=== PATIENT | male | born 1965 | race Caucasian/White ===

== ENCOUNTER 2016-12-06 11:02 | Emergency (ER) | payer MEDICARE, MEDICAID ==
[~2016-12-06] VITALS: Ht 182.9 cm; Wt 94.3 kg
[~2016-12-06 11:02] MED LIST: ALBU83IN INH; ALEV220T26 PO; FISH500C PO; LEVO75TA34 PO; LOVOXYL; PROT1TAB2 PO; SIMV40TA2 PO; SYMB16INH INH; SYNT75TA PO; VICO5TAB16 PO; ZOCO40TA PO; [UNRECOGNIZED DRUG - OTHER] PO
[2016-12-06] MEDS ORDERED: RAMI25CA PO (11:15)
[2016-12-06] MEDS ORDERED: BRIL90TA (11:15)
[2016-12-06] MEDS ORDERED: ROSU20TA (11:15)
[2016-12-06] MEDS ORDERED: ALBU17IN INH (11:15)
[2016-12-06] MEDS ORDERED: ASPI81TA85 PO (11:15)
[2016-12-06] MEDS ORDERED: INVO100T (11:15)
[2016-12-06] MEDS ORDERED: METO-346 (11:15)
[2016-12-06] MEDS ORDERED: LEVO112T2 PO (11:15)
[2016-12-06] MEDS ORDERED: DULO1CAP2 (11:15)
[2016-12-06] MEDS ORDERED: STIO1AER INH (11:15)
[2016-12-06] MEDS ORDERED: METF500T (11:15)
[2016-12-06 12:34] VITALS: BP 131/78
--- NOTE | 2016-12-06 12:40 | REP ---
Left shoulder three views : There is no fracture or dislocation. Mineralization and joint spaces are normal. There are no calcifications or foreign bodies. Impression: Negative left shoulder . Signed by Aiden Lorenzo MD 12/06/2016 12:31 P
[2016-12-06] MEDS ORDERED: ASPIRIN 81 MG CHEW TABLET PO ONE (12:45)
[2016-12-06] MEDS ORDERED: PERCOCET 5MG/325MG TAB PO ONE (13:30)
[2016-12-06] MEDS ORDERED: PERC5TAB6 PO (13:33)
--- NOTE | 2016-12-07 20:27 | ECGEPIP ---
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
== END 2016-12-06 13:48 | disposition home or self-care (01) ==
LOC: M ED 12:30
DX: M25.512 Pain in left shoulder (principal); I25.2 Old myocardial infarction; I25.10 Atherosclerotic heart disease of native coronary artery without angina pectoris; I10 Essential (primary) hypertension; E78.00 Pure hypercholesterolemia, unspecified; F17.210 Nicotine dependence, cigarettes, uncomplicated

== ENCOUNTER → 2017-02-08 | Outpatient (REF) | payer MEDICARE, MEDICAID ==
[~2017-02-08] MED LIST changes: +ALBU17IN INH; +ASPI81TA85 PO; +BRIL90TA; +DULO1CAP2; +INVO100T; +LEVO112T2 PO; +METF500T; +METO-346; +PERC5TAB6 PO; +RAMI25CA PO; +ROSU20TA; +STIO1AER INH
[2017-02-08 11:50] LABS: BASO % 0.8 % (0.0-1.0); EOS # 0.2 K/mm3 (0.0-0.50); LARGE UNSTAINED CELL # 0.1 K/mm3 (0.0-0.4); LARGE UNSTAINED CELL % 2.1 % (0.0-4.0); LYMPH # 1.3 K/mm3 (1.5-4.5); LYMPH % 21.2 % (24.0-44.0); MEAN CORPUSCULAR HEMOGLOBIN 30.4 pg (27.0-33.0); MEAN CORPUSCULAR HGB CONC 34.2 g/dl (32.0-36.5); MEAN CORPUSCULAR VOLUME 88.9 fl (80.0-96.0); MONO # 0.4 K/mm3 (0.0-0.8); MONO % 6.3 % (0.0-5.0); NEUTROPHILS # 4.1 K/mm3 (1.8-7.7); NEUTROPHILS % 65.5 % (36.0-66.0); PLATELET COUNT, AUTOMATED 257 k/mm3 (150-450); RED CELL DISTRIBUTION WIDTH 15.1 % (11.5-14.5); WHITE BLOOD COUNT 6.3 K/mm3 (4.0-10.0)
[2017-02-08 15:24] LABS: ALBUMIN 4.1 GM/DL (3.2-5.2); ALBUMIN/GLOBULIN RATIO 1.21 (1.00-1.93); ALKALINE PHOSPHATASE 81 U/L (45-117); ALT/SGPT 39 U/L (12-78); ANION GAP 6 MEQ/L (8-16); AST/SGOT 18 U/L (15-37); BILIRUBIN,TOTAL 0.6 MG/DL (0.2-1.0); BLOOD UREA NITROGEN 13 MG/DL (7-18); CALCIUM LEVEL 8.8 MG/DL (8.5-10.1); CARBON DIOXIDE LEVEL 25 MEQ/L (21-32); CHLORIDE LEVEL 108 MEQ/L (98-107); CHOLESTEROL LEVEL 157 MG/DL (<200); FREE T4 1.13 NG/DL (0.76-1.46); GLOMERULAR FILTRATION RATE > 60.0 (>56); GLUCOSE, FASTING 122 MG/DL (70-105); POTASSIUM SERUM 3.8 MEQ/L (3.5-5.1); SODIUM LEVEL 139 MEQ/L (136-145); TOTAL PROTEIN 7.5 GM/DL (6.4-8.2); TRIGLYCERIDES LEVEL 348 MG/DL (<150)
== END ==
LOC: M SFHCPLAZ 07:46
PROVIDERS: ATTEND Nurse Practitioner Family
DX: J44.9 Chronic obstructive pulmonary disease, unspecified (principal); E11.9 Type 2 diabetes mellitus without complications; E03.9 Hypothyroidism, unspecified; I25.10 Atherosclerotic heart disease of native coronary artery without angina pectoris

== ENCOUNTER → 2017-02-10 | Outpatient (CLI) | payer MEDICARE, MEDICAID ==
--- NOTE | 2017-02-10 11:46 | REP ---
Clinical: Pain. Technique: AP and lateral views of the right and left knee. Findings: Examination is relatively normal for age. Subtle increased sclerosis to the tibial plateau with minimal medial joint space narrowing is appreciated bilaterally. No obvious fracture or dislocation. No obvious effusion. Impression: Mild and likely age-related degenerative changes. Signed by Dipak Griffiths MD 02/10/2017 11:37 A
== END ==
LOC: M WUC 11:14
PROVIDERS: ATTEND Nurse Practitioner Family
DX: M25.561 Pain in right knee (principal); M25.562 Pain in left knee; M17.0 Bilateral primary osteoarthritis of knee

== ENCOUNTER → 2017-03-22 | Outpatient (CLI) | payer MEDICARE, MEDICAID ==
[~2017-03-22] MED LIST changes: -METF500T; +METF500T13; +PERC5TAB12 PO; -PERC5TAB6 PO
[2017-03-22 12:29] LABS: ABG BASE EXCESS 0.5 (-2.0-2.0); ABG HCO3 23.3 MEQ/L (22.0-26.0); ABG PARTIAL PRESSURE CO2 32.5 mmHg (35.0-45.0); ABG PARTIAL PRESSURE O2 88.5 mmHg (75.0-100.0); ABG STANDARD HCO3 24.9 MEQ/L (22.0-26.0); ABG TOTAL CO2 24.3 MEQ/L (22.0-29.0); ABG pH (ARTERIAL) 7.473 UNITS (7.350-7.450)
== END ==
LOC: M LAB 11:36
PROVIDERS: ATTEND Internal Medicine Pulmonary Disease
DX: R05 Cough (principal)

== ENCOUNTER → 2017-03-25 | Outpatient (CLI) | payer MEDICARE, MEDICAID ==
--- NOTE | 2017-04-05 07:27 | SLEEPCENT ---
DATE OF PROCEDURE: 03/25/2017 REFERRING PROVIDER: ADALI Hernandes-Joseline. INTERPRETATION: Nocturnal polysomnography was performed for retitration of CPAP therapy in this patient with moderate obstructive sleep apnea who is no longer able to tolerated the CPAP device. He had been compliant with CPAP up until 03/2016 when he had a myocardial infarction. Recording time started at 21:18 and ended at 4:41 and that data was reviewed. There were 340 minutes of sleep identified. Sleep latency was 41 minutes. Rapid eye movement (REM) latency was 112 minutes. All stages of sleep were observed. Sleep efficiency was decreased at 76.1%. Electrocardiogram (EKG) showed normal sinus rhythm with an average heart rate of 84 beats per minute. Speeding and slowing was noted surrounding some respiratory events. Patient had been fit with a ResMed P-10 full face mask of medium size, 4 cm of water has been applied to the circuit and the lights were dimmed. CPAP initially started at 4 cm of water pressure, taken to a high of 11 cm of water pressure. He appeared to do optimal on a pressure of10 or 11. On 10 cm of water pressure, his apnea-hypopnea index (AHI) was 0.4 and his HAWK was 1.3. In reviewing the tracings, these events only occurred when he was supine, predominately in REM sleep. Periodic limb movement index was 14.1. Very minimal time was seen in supine REM sleep on a pressure of 10 and none on a pressure of 11 to ensure eradication of these difficulties. IMPRESSION: 1. Obstructive sleep apnea, moderate, possibly palliated on CPAP of 10 cm of water pressure. As noted above, the difficulty is that his events occurred supine and predominately in REM sleep and very minimal of this condition was seen on the pressure of 10. He had very minimal supine sleep all together on the pressure of 10 cm and therefore it is difficult to know if his events are truly eradicated. 2. Periodic limb movements, mild, uncertain clinical significance. RECOMMENDATIONS: Recommend continuation of CPAP on 10 cm of water pressure with ResMed P-10 full face mask of medium size. Clinical correlation will be necessary to ensure eradication of symptoms. If his symptoms are not eradicated , consideration could be given to an auto CPAP trial versus empirically increasing the CPAP device versus returning to the lab and starting at 10 but try to have him stay supine for a majority of the study. [facility]
== END ==
LOC: M SLEEP 20:00
PROVIDERS: ATTEND Internal Medicine Pulmonary Disease
DX: G47.33 Obstructive sleep apnea (adult) (pediatric) (principal)

== ENCOUNTER → 2017-05-18 | Outpatient (CLI) | payer MEDICARE, MEDICAID | LOC: M WUC 11:32 | PROVIDERS: ATTEND Physician Assistant | DX: M17.11 Unilateral primary osteoarthritis, right knee (principal) ==

== ENCOUNTER 2017-06-24 08:17 | Outpatient (RCR) | payer MEDICARE, MEDICAID | END 2017-07-15 | LOC: M PT 08:17 | PROVIDERS: ATTEND Physician Assistant | DX: Z51.89 Encounter for other specified aftercare (principal); M65.80 Other synovitis and tenosynovitis, unspecified site | CPT/HCPCS: 97110; G0283; G8978; G8979; G8980 ==

== ENCOUNTER → 2017-07-15 | Outpatient (CLI) | payer MEDICARE, MEDICAID ==
[2017-07-15 13:26] LABS: BLOOD UREA NITROGEN 13 MG/DL (7-18); GLOMERULAR FILTRATION RATE > 60.0 (>56)
== END ==
LOC: M LAB 12:10
PROVIDERS: ATTEND Physical Medicine & Rehabilitation
DX: M47.27 Other spondylosis with radiculopathy, lumbosacral region (principal)

== ENCOUNTER → 2017-08-23 | Outpatient (CLI) | payer MEDICARE, MEDICAID ==
[2017-08-23 15:06] LABS: BASO % 0.5 % (0.0-1.0); EOS # 0.3 10^3/uL (0.0-0.50); EOS % 5.8 % (0.0-3.0); HEMOGLOBIN 12.4 g/dl (14.0-18.0); IMMATURE GRANULOCYTE % 0.2 % (0-0); LYMPH # 1.5 10^3/uL (1.5-4.5); LYMPH % 34.3 % (24.0-44.0); MEAN CORPUSCULAR HEMOGLOBIN 29.7 pg (27.0-33.0); MEAN CORPUSCULAR HGB CONC 34.4 g/dl (32.0-36.5); MEAN CORPUSCULAR VOLUME 86.3 fl (80.0-96.0); MONO # 0.4 10^3/uL (0.0-0.8); MONO % 8.6 % (0.0-5.0); NEUTROPHILS # 2.2 10^3/uL (1.8-7.7); NEUTROPHILS % 50.6 % (36.0-66.0); PLATELET COUNT, AUTOMATED 203 10^3/uL (150-450); RED BLOOD COUNT 4.17 10^6/uL (4.30-6.10); RED CELL DISTRIBUTION WIDTH 14.3 % (11.5-14.5); WHITE BLOOD COUNT 4.3 10^3/uL (4.0-10.0)
[2017-08-23 15:07] LABS: ALBUMIN 4.2 GM/DL (3.2-5.2); ANION GAP 5 MEQ/L (8-16); BLOOD UREA NITROGEN 11 MG/DL (7-18); CALCIUM LEVEL 8.6 MG/DL (8.5-10.1); CARBON DIOXIDE LEVEL 29 MEQ/L (21-32); CHLORIDE LEVEL 106 MEQ/L (98-107); CREATININE FOR GFR 0.75 MG/DL (0.70-1.30); GLOMERULAR FILTRATION RATE > 60.0 (>56); GLUCOSE, FASTING 124 MG/DL (70-105); PHOSPHORUS LEVEL 3.5 MG/DL (2.5-4.9); POTASSIUM SERUM 3.8 MEQ/L (3.5-5.1); SODIUM LEVEL 140 MEQ/L (136-145)
== END ==
LOC: M LAB 13:44
DX: I25.118 Atherosclerotic heart disease of native coronary artery with other forms of angina pectoris (principal)
CPT/HCPCS: 80069

== ENCOUNTER → 2017-09-14 | Outpatient (REF) | payer MEDICARE, MEDICAID ==
[2017-09-14 14:20] LABS: APPEARANCE, URINE CLEAR (CLEAR); BACTERIA, URINE AUTO NEGATIVE (NEGATIVE); BILIRUBIN, URINE AUTO NEGATIVE (NEGATIVE); BLOOD, URINE BLOOD NEGATIVE (NEGATIVE); COLOR, URINE YELLOW (YELLOW); GLUCOSE, URINE (UA) AUTO NEGATIVE (NEGATIVE); KETONE, URINE AUTO NEGATIVE (NEGATIVE); LEUKOCYTE ESTERASE, URINE AUTO NEGATIVE (NEGATIVE); MUCUS, URINE SMALL (NEGATIVE); NITRITE, URINE AUTO NEGATIVE (NEGATIVE); PROTEIN, URINE AUTO NEGATIVE (NEGATIVE); RBC, URINE AUTO 0 /HPF (0-3); SPECIFIC GRAVITY URINE AUTO 1.017 (1.002-1.035); SQUAMOUS EPITHELIAL CELL UR AU 0 /HPF (0-6); WBC, URINE AUTO 1 /HPF (0-3)
== END ==
LOC: M SMT 13:05
DX: R35.0 Frequency of micturition (principal); R39.15 Urgency of urination
CPT/HCPCS: 81001

== ENCOUNTER → 2017-09-21 | Outpatient (REF) | payer MEDICARE, MEDICAID ==
[2017-09-21 12:33] LABS: ESTIMATED AVERAGE GLUCOSE 143 MG/DL (60-110); HEMOGLOBIN A1c 6.6 %
[2017-09-21 12:48] LABS: CREATININE, URINE 58.4 MG/DL; MALB URINE SIEMENS 24.2 MG/L; MAU/CREAT RATIO 41.4 MCG/MG (0.0-30.0)
[2017-09-21 13:26] LABS: ALBUMIN 4.1 GM/DL (3.2-5.2); ALBUMIN/GLOBULIN RATIO 1.24 (1.00-1.93); ALKALINE PHOSPHATASE 89 U/L (45-117); ALT/SGPT 31 U/L (12-78); ANION GAP 11 MEQ/L (8-16); AST/SGOT 18 U/L (7-37); BILIRUBIN,TOTAL 0.6 MG/DL (0.2-1.0); BLOOD UREA NITROGEN 12 MG/DL (7-18); CALCIUM LEVEL 8.9 MG/DL (8.5-10.1); CARBON DIOXIDE LEVEL 25 MEQ/L (21-32); CHLORIDE LEVEL 103 MEQ/L (98-107); CREATININE FOR GFR 0.84 MG/DL (0.70-1.30); FREE T4 0.32 NG/DL (0.76-1.46); GLOMERULAR FILTRATION RATE > 60.0 (>56); GLUCOSE, FASTING 144 MG/DL (70-100); SODIUM LEVEL 139 MEQ/L (136-145); TOTAL PROTEIN 7.4 GM/DL (6.4-8.2)
== END ==
LOC: M SFHCPLAZ 09:12
DX: E11.9 Type 2 diabetes mellitus without complications (principal); E03.9 Hypothyroidism, unspecified
CPT/HCPCS: 84443

== ENCOUNTER → 2017-10-27 | Outpatient (REF) | payer MEDICARE, MEDICAID ==
[2017-10-27 18:27] LABS: FREE T4 1.05 NG/DL (0.76-1.46)
== END ==
LOC: M SFHCPLAZ 14:43
DX: E03.9 Hypothyroidism, unspecified (principal)
CPT/HCPCS: 84443

== ENCOUNTER 2017-12-31 11:06 | Day surgery (SDC) | payer MEDICARE, MEDICAID ==
[2017-12-31] MEDS: NS 1,000 ML IV (11:00)
[2017-12-31] MEDS ORDERED: fentaNYL 100 MCG/2 ML INJECTION (J3010) As Ordered (12:06)
[2017-12-31] MEDS ORDERED: PROPOFOL 500 MG/50 ML VIAL As Ordered (12:07)
[2017-12-31] MEDS ORDERED: LIDOCAINE 2% INJ 100 MG/5 ML SDV (FOR ANES.) As Ordered (13:30)
[2017-12-31] MEDS ORDERED: ePHEDrine SULFATE 25 MG/5 ML(5MG/ML) SYRINGE As Ordered (13:33)
== END 2017-12-31 14:22 | disposition home or self-care (01) ==
LOC: M OPP 11:06
DX: Z12.11 Encounter for screening for malignant neoplasm of colon (principal); D12.4 Benign neoplasm of descending colon; K30 Functional dyspepsia; R12 Heartburn; K22.8 Other specified diseases of esophagus; I25.10 Atherosclerotic heart disease of native coronary artery without angina pectoris; I10 Essential (primary) hypertension; E78.5 Hyperlipidemia, unspecified; Z95.5 Presence of coronary angioplasty implant and graft; I25.2 Old myocardial infarction; E11.9 Type 2 diabetes mellitus without complications; E03.9 Hypothyroidism, unspecified; K59.00 Constipation, unspecified; K21.9 Gastro-esophageal reflux disease without esophagitis; M19.90 Unspecified osteoarthritis, unspecified site; M54.2 Cervicalgia; M54.89 Other dorsalgia; F32.9 Major depressive disorder, single episode, unspecified; J44.9 Chronic obstructive pulmonary disease, unspecified; G47.30 Sleep apnea, unspecified; R06.83 Snoring; F17.210 Nicotine dependence, cigarettes, uncomplicated; Z79.82 Long term (current) use of aspirin; Z79.84 Long term (current) use of oral hypoglycemic drugs; Z79.899 Other long term (current) drug therapy
CPT/HCPCS: 45385

== ENCOUNTER → 2018-01-13 | Outpatient (CLI) | payer MEDICARE, MEDICAID ==
[2018-01-13 14:06] LABS: INR 0.93; PROTHROMBIN TIME 12.5 SECONDS (12.4-14.5)
[2018-01-13 14:07] LABS: PARTIAL THROMBOPLASTIN TIME 25.4 SECONDS (26.8-37.9)
== END ==
LOC: M LAB 12:38
DX: Z01.818 Encounter for other preprocedural examination (principal); Z79.01 Long term (current) use of anticoagulants
CPT/HCPCS: 85610

== ENCOUNTER → 2018-03-04 | Outpatient (REF) | payer MEDICARE, MEDICAID ==
[2018-03-04 10:26] LABS: ALBUMIN 3.8 GM/DL (3.2-5.2); ALBUMIN/GLOBULIN RATIO 1.03 (1.00-1.93); ALKALINE PHOSPHATASE 86 U/L (45-117); ALT/SGPT 34 U/L (12-78); ANION GAP 8 MEQ/L (8-16); AST/SGOT 13 U/L (7-37); BILIRUBIN,TOTAL 0.7 MG/DL (0.2-1.0); BLOOD UREA NITROGEN 17 MG/DL (7-18); CALCIUM LEVEL 8.6 MG/DL (8.5-10.1); CARBON DIOXIDE LEVEL 25 MEQ/L (21-32); CHLORIDE LEVEL 106 MEQ/L (98-107); CREATININE FOR GFR 0.88 MG/DL (0.70-1.30); GLOMERULAR FILTRATION RATE > 60.0 (>56); GLUCOSE, FASTING 195 MG/DL (70-100); POTASSIUM SERUM 4.2 MEQ/L (3.5-5.1); SODIUM LEVEL 139 MEQ/L (136-145); THYROID STIMULATING HORMONE 0.804 uIU/ML (0.358-3.740); TOTAL PROTEIN 7.5 GM/DL (6.4-8.2)
[2018-03-04 12:01] LABS: ESTIMATED AVERAGE GLUCOSE 163 MG/DL (60-110); HEMOGLOBIN A1c 7.3 %
== END ==
LOC: M SFHCPLAZ 07:50
DX: E11.9 Type 2 diabetes mellitus without complications (principal); E03.9 Hypothyroidism, unspecified; R39.15 Urgency of urination; R35.0 Frequency of micturition
CPT/HCPCS: 84443

== ENCOUNTER → 2018-03-25 | Outpatient (CLI) | payer MEDICARE, MEDICAID | LOC: M RAD 08:06 | DX: M47.22 Other spondylosis with radiculopathy, cervical region (principal); M47.26 Other spondylosis with radiculopathy, lumbar region | CPT/HCPCS: 72114 ==

== ENCOUNTER → 2018-03-31 | Outpatient (CLI) | payer MEDICARE, MEDICAID | LOC: M RAD 08:51 | DX: R39.15 Urgency of urination (principal); R35.0 Frequency of micturition; N20.0 Calculus of kidney | CPT/HCPCS: 74176 ==

== ENCOUNTER → 2018-04-11 | Outpatient (REF) | payer MEDICARE, MEDICAID ==
[2018-04-11 13:36] LABS: APPEARANCE, URINE CLEAR (CLEAR); BACTERIA, URINE AUTO NEGATIVE (NEGATIVE); BILIRUBIN, URINE AUTO NEGATIVE (NEGATIVE); BLOOD, URINE BLOOD NEGATIVE (NEGATIVE); COLOR, URINE YELLOW (YELLOW); GLUCOSE, URINE (UA) AUTO NEGATIVE (NEGATIVE); KETONE, URINE AUTO NEGATIVE (NEGATIVE); LEUKOCYTE ESTERASE, URINE AUTO NEGATIVE (NEGATIVE); MUCUS, URINE SMALL (NEGATIVE); NITRITE, URINE AUTO NEGATIVE (NEGATIVE); PROTEIN, URINE AUTO NEGATIVE (NEGATIVE); RBC, URINE AUTO 1 /HPF (0-3); SPECIFIC GRAVITY URINE AUTO 1.013 (1.002-1.035); SQUAMOUS EPITHELIAL CELL UR AU 0 /HPF (0-6); UROBILINOGEN, URINE AUTO 0.2 mg/dL (0.0-2.0); WBC, URINE AUTO 0 /HPF (0-3)
== END ==
LOC: M SMT 13:05
DX: R39.15 Urgency of urination (principal); R30.0 Dysuria; R35.0 Frequency of micturition
CPT/HCPCS: 81001

== ENCOUNTER → 2018-06-17 | Outpatient (REF) | payer MEDICARE, MEDICAID ==
[2018-06-17 12:33] LABS: ALBUMIN 4.2 GM/DL (3.2-5.2); ALBUMIN/GLOBULIN RATIO 1.24 (1.00-1.93); ALKALINE PHOSPHATASE 102 U/L (45-117); ALT/SGPT 34 U/L (12-78); ANION GAP 5 MEQ/L (8-16); AST/SGOT 15 U/L (7-37); BILIRUBIN,TOTAL 0.9 MG/DL (0.2-1.0); BLOOD UREA NITROGEN 10 MG/DL (7-18); CALCIUM LEVEL 8.8 MG/DL (8.5-10.1); CARBON DIOXIDE LEVEL 28 MEQ/L (21-32); CHLORIDE LEVEL 104 MEQ/L (98-107); CHOLESTEROL LEVEL 191 MG/DL (<200); CHOLESTEROL RISK RATIO 6.161 (<5); CREATININE FOR GFR 0.87 MG/DL (0.70-1.30); FREE T4 0.97 NG/DL (0.76-1.46); GLOMERULAR FILTRATION RATE > 60.0 (>56); GLUCOSE, FASTING 164 MG/DL (70-100); HDL CHOLESTEROL 31 MG/DL (>40); NON-HDL-C 160 MG/DL; POTASSIUM SERUM 4.1 MEQ/L (3.5-5.1); SODIUM LEVEL 137 MEQ/L (136-145); TOTAL PROTEIN 7.6 GM/DL (6.4-8.2); TRIGLYCERIDES LEVEL 516 MG/DL (<150)
[2018-06-17 13:31] LABS: TOTAL 25(OH) VITAMIN D 27.4 NG/ML (30.0-100.0)
[2018-06-17 14:39] LABS: ESTIMATED AVERAGE GLUCOSE 140 MG/DL (60-110); HEMOGLOBIN A1c 6.5 %
== END ==
LOC: M SFHCPLAZ 09:32
DX: E78.5 Hyperlipidemia, unspecified (principal); E03.9 Hypothyroidism, unspecified; E11.9 Type 2 diabetes mellitus without complications; F32.2 Major depressive disorder, single episode, severe without psychotic features; E55.9 Vitamin D deficiency, unspecified; Z23 Encounter for immunization; I25.10 Atherosclerotic heart disease of native coronary artery without angina pectoris; R10.13 Epigastric pain; F17.210 Nicotine dependence, cigarettes, uncomplicated; J44.9 Chronic obstructive pulmonary disease, unspecified
CPT/HCPCS: 84443

== ENCOUNTER → 2018-08-11 | Outpatient (CLI) | payer MEDICARE, MEDICAID ==
[~2018-08-11] MED LIST changes: +ARNU1INH3 INH; +CLOP75TA2 PO; +LEVO125T4 PO; +LEXA1TAB2 PO; -METF500T13; +METF500T13 PO; +MIRA3350 PO; +OXYB5TAB10 PO; +PANT40TA3 PO; +PROAAER10 INH; +RAMI1CAP22 PO; -RAMI25CA PO; -ROSU20TA; +ROSU20TA4 PO; +VITA100067 PO
--- NOTE | 2018-08-11 14:23 | REP ---
Clinical: Spondylosis. Technique: Axial noncontrast images from the skull base to the thoracic inlet with coronal and sagittal re-formations. Findings: Cervical vertebral bodies are intact and normal for age. There is no evidence for acute fracture / compression injury or subluxation. Alignment and lordosis maintained. Intervertebral disc spaces demonstrate mild decreased disc height consistent with age-related changes. There is subtle posterior osteophyte at the C6-7 level with a small associated posterior disc bulge. Minimal disc space narrowing at the C7-T1 level is also noted without obvious disc bulge by CT evaluation. Mean neural foramina appear patent bilaterally. The posterior elements and spinous processes are intact and without significant arthropathy. Paravertebral soft tissues are normal. Impression: Focal degenerative changes at C6-7 with small posterior disc bulge suggested. Remainder examination is relatively normal for age. Electronically Signed by Dipak Griffiths MD 08/11/2018 02:15 P
== END ==
LOC: M RAD 13:32
PROVIDERS: ATTEND Neurological Surgery
DX: M47.812 Spondylosis without myelopathy or radiculopathy, cervical region (principal)

== ENCOUNTER → 2018-08-12 | Outpatient (REF) | payer MEDICARE, MEDICAID | LOC: M SFHCPLAZ 16:17 | PROVIDERS: ATTEND Family Medicine | DX: Z01.818 Encounter for other preprocedural examination (principal); E11.9 Type 2 diabetes mellitus without complications ==

== ENCOUNTER → 2018-08-12 | Outpatient (CLI) | payer MEDICARE, MEDICAID ==
[~2018-08-12] MED LIST changes: +BRIL90TA PO; +METO1TAB32 PO; +STIO1AER IN
[2018-08-12 18:11] LABS: BASO # 0.1 10^3/uL (0.0-0.2); BASO % 0.9 % (0.0-1.0); EOS # 0.2 10^3/uL (0.0-0.50); EOS % 3.6 % (0.0-3.0); HEMATOCRIT 39.1 % (42.0-52.0); HEMOGLOBIN 13.9 g/dl (13.5-17.5); LYMPH # 1.9 10^3/uL (1.5-4.5); LYMPH % 31.8 % (24.0-44.0); MEAN CORPUSCULAR HGB CONC 35.5 g/dl (32.0-36.5); MEAN CORPUSCULAR VOLUME 87.3 fl (80.0-96.0); MONO # 0.4 10^3/uL (0.0-0.8); MONO % 7.6 % (0.0-5.0); NEUTROPHILS # 3.2 10^3/uL (1.8-7.7); NEUTROPHILS % 55.6 % (36.0-66.0); PLATELET COUNT, AUTOMATED 230 10^3/uL (150-450); RED BLOOD COUNT 4.48 10^6/uL (4.30-6.10); WHITE BLOOD COUNT 5.8 10^3/uL (4.0-10.0)
[2018-08-12 18:26] LABS: INR 0.94; PROTHROMBIN TIME 12.7 SECONDS (12.1-14.4)
[2018-08-12 18:27] LABS: PARTIAL THROMBOPLASTIN TIME 24.5 SECONDS (25.4-37.6)
[2018-08-12 18:53] LABS: ALBUMIN 3.9 GM/DL (3.2-5.2); ALT/SGPT 40 U/L (12-78); BILIRUBIN,TOTAL 0.5 MG/DL (0.2-1.0); BLOOD UREA NITROGEN 15 MG/DL (7-18); CARBON DIOXIDE LEVEL 27 MEQ/L (21-32); CHLORIDE LEVEL 106 MEQ/L (98-107); CREATININE FOR GFR 1.09 MG/DL (0.70-1.30); FREE T4 0.97 NG/DL (0.76-1.46); GLOMERULAR FILTRATION RATE > 60.0 (>56); GLUCOSE, FASTING 146 MG/DL (70-100); SODIUM LEVEL 140 MEQ/L (136-145); TOTAL PROTEIN 7.3 GM/DL (6.4-8.2)
[2018-08-12 19:05] LABS: HEMOGLOBIN A1c 6.7 %
== END ==
LOC: M LAB 16:41
PROVIDERS: ATTEND Family Medicine
DX: Z01.818 Encounter for other preprocedural examination (principal); E11.9 Type 2 diabetes mellitus without complications; I25.10 Atherosclerotic heart disease of native coronary artery without angina pectoris; J44.9 Chronic obstructive pulmonary disease, unspecified; E78.5 Hyperlipidemia, unspecified; G47.33 Obstructive sleep apnea (adult) (pediatric); E03.9 Hypothyroidism, unspecified; M47.22 Other spondylosis with radiculopathy, cervical region
CPT/HCPCS: 36415; 80053; 83036; 84439; 84443; 85025; 85610; 85730; G0463

== ENCOUNTER 2018-08-13 13:58 | Emergency (ER) | payer MEDICARE, MEDICAID ==
[~2018-08-13] VITALS: Ht 182.9 cm; Wt 92.3 kg
[~2018-08-13 13:58] MED LIST changes: -BRIL90TA PO; -METO1TAB32 PO; -STIO1AER IN
[2018-08-13] MEDS ORDERED: HEPARIN DRIP 25,000 UNITS in APPROPRIATE DILUENT 1 EA IV SCH (14:07)
[2018-08-13] MEDS ORDERED: CLOPIDOGREL 300 MG TAB (PLAVIX) PO ONE (14:15)
[2018-08-13] MEDS: MORPHINE 2 MG/ML 1ML SYRINGE (J2270) IV PRN ×2 (14:15→14:45)
[2018-08-13] MEDS ORDERED: ONDANSETRON 4MG/2ML VIAL (J2405) IV ONE (14:15)
[2018-08-13] MEDS ORDERED: NITROGLYCERIN 0.4 MG SUBL TABLET SL PRN (14:15)
[2018-08-13] MEDS ORDERED: TENECTEPLASE 50 MG KIT (TNKase)(J3101) IV ONE (14:15)
[2018-08-13] MEDS ORDERED: HEPARIN SOD (PORCINE) 5000 UNITS/ML VIAL IV ONE (14:15)
[2018-08-13 14:16] LABS: BASO # 0.1 10^3/uL (0.0-0.2); BASO % 0.8 % (0.0-1.0); EOS # 0.2 10^3/uL (0.0-0.50); EOS % 3.7 % (0.0-3.0); HEMATOCRIT 39.5 % (42.0-52.0); LYMPH # 2.4 10^3/uL (1.5-4.5); LYMPH % 36.3 % (24.0-44.0); MEAN CORPUSCULAR HEMOGLOBIN 30.5 pg (27.0-33.0); MEAN CORPUSCULAR HGB CONC 35.4 g/dl (32.0-36.5); MEAN CORPUSCULAR VOLUME 86.1 fl (80.0-96.0); MONO # 0.6 10^3/uL (0.0-0.8); MONO % 9.5 % (0.0-5.0); NEUTROPHILS # 3.2 10^3/uL (1.8-7.7); NEUTROPHILS % 49.1 % (36.0-66.0); PLATELET COUNT, AUTOMATED 234 10^3/uL (150-450); RED BLOOD COUNT 4.59 10^6/uL (4.30-6.10); WHITE BLOOD COUNT 6.5 10^3/uL (4.0-10.0)
[2018-08-13 14:17] VITALS: BP 143/85
[2018-08-13 14:29] VITALS: BP 173/99
[2018-08-13 14:30] LABS: INR 0.92; PROTHROMBIN TIME 12.4 SECONDS (12.1-14.4)
--- NOTE | 2018-08-13 14:30 | REP ---
Clinical: Chest pain . Comparison: 08/10/2016 . Technique: PA and lateral. Findings: The mediastinum and cardiac silhouette are normal. The lung garcia are clear and without acute consolidation, effusion, or pneumothorax. The skeletal structures are intact and normal. Impression: 1. No acute cardiopulmonary process. Electronically Signed by Dipak Griffiths MD 08/13/2018 02:22 P
[2018-08-13 14:40] LABS: ALBUMIN 4.1 GM/DL (3.2-5.2); ALT/SGPT 35 U/L (12-78); BILIRUBIN,DIRECT 0.1 MG/DL (0.0-0.2); BILIRUBIN,TOTAL 0.7 MG/DL (0.2-1.0); BLOOD UREA NITROGEN 11 MG/DL (7-18); CARBON DIOXIDE LEVEL 24 MEQ/L (21-32); CHLORIDE LEVEL 106 MEQ/L (98-107); CPK CREATINE PHOSPHOKINASE 71 U/L (39-308); CREATININE FOR GFR 0.98 MG/DL (0.70-1.30); GLOMERULAR FILTRATION RATE > 60.0 (>56); GLUCOSE, FASTING 130 MG/DL (70-100); MB/CK RELATIVE INDEX 2.39 (< OR =4); POTASSIUM SERUM 3.9 MEQ/L (3.5-5.1); SODIUM LEVEL 139 MEQ/L (136-145); TOTAL PROTEIN 7.6 GM/DL (6.4-8.2); TROPONIN I < 0.02 NG/ML (< 0.10)
--- NOTE | 2018-08-13 17:22 | ECGEPIP ---
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
== END 2018-08-13 14:46 | disposition short-term general hospital (02) ==
LOC: EDBD 13:58 → M ED 13:58
DX: I21.9 Acute myocardial infarction, unspecified (principal); I25.2 Old myocardial infarction; I10 Essential (primary) hypertension; Z95.5 Presence of coronary angioplasty implant and graft; Z72.0 Tobacco use; Z82.49 Family history of ischemic heart disease and other diseases of the circulatory system; Z79.82 Long term (current) use of aspirin; Z79.899 Other long term (current) drug therapy
CPT/HCPCS: 71045; 80048; 80076; 82550; 82553; 84484; 85025; 85610; 93005; 93041; 94760; 96374; 96375; 99291; J2270; J2405; J3101

== ENCOUNTER 2018-09-12 10:29 | Outpatient (RCR) | payer MEDICARE, MEDICAID ==
--- NOTE | 2018-09-05 11:18 | CARECAPL ---
Assessment Account #s: Initial Assessment General Diagnoses: Stent Date of event: Aug 02, 2018 Physician: Cedric Chicas Allergies: Coded Allergies: No Known Drug Allergy (Verified Allergy, Unknown, 12/23/17) Date Entered Program: Sep 05, 2018 Risk strat for cardiac event: Low Exercise Date: Sep 05, 2018 Assessment: Initial Assessment Exercise Prescription Plan to education about cardiac disease and exercise through a monitor program Modalities initiated: Treadmill (will add), Cardio-Strider (will add), Nustep (level 1 mets 2.2 rpe 2), Arm Aerometer (1.0 mets 2.56 rpe 3.5), Dumbells (will add), Recumbent Bike (level 1 mets 2.9 rpe 4) Frequency: 2 Duration (Minutes) 30-+60 minutes total exercise a day. 6-15 work intervals in minutes. as needed rest intervals in minutes. Functional Capacity Goal Sustained Metabolic Equivalent of a task (MET) goal of 3.5-4.5 for 15-20 minutes. Progression (METS) Increase by: .5 METS every: 2 sessions Angina with ex: No Target Heart Rate r+35-40 Resistance Training: Yes (will add) Reps: 6-8 Hypertension: Yes Hypertension controlled with: Diet Resting 116/69 Peak Exercise BP 140/80 Meds see below Medications Scheduled (Arnuity Ellipta), 1 PUFF INH DAILY, (Reported) (Stiolto Respimat 2.5-2.5 Mcg/Act), 2 PUFFS IN DAILY, (Reported) Aspirin (Aspir-81), 81 MG PO DAILY, (Reported) Levothyroxine Sodium (Synthroid), 125 MCG PO DAILY, (Reported) Metformin Hydrochloride (Metformin HCl), 500 MG PO BID, (Reported) Metoprolol Succinate (Metoprolol Succinate ER), 25 MG PO DAILY, (Reported) Ramipril (Ramipril), 2.5 MG PO DAILY, (Reported) Rosuvastatin Calcium (Rosuvastatin Calcium), 20 MG PO QHS, (Reported) Ticagrelor Base (Brilinta), 90 MG PO BID, (Reported) Vitamin D (Vitamin D), 1,000 UNIT PO DAILY, (Reported) Scheduled PRN Albuterol Sulfate (Proair Hfa), 2 PUFF INH Q4HP PRN for WHEEZING, (Reported) Discontinued Medications (Stiolto Respimat 2.5-2.5 Mcg/Act), 2 PUFFS INH DAILY, (Reported) Discontinued Reason: Pt states not taking Clopidogrel Bisulfate (Clopidogrel), 75 MG PO DAILY, (Reported) Discontinued Reason: Pt states not taking Escitalopram Oxalate (Lexapro), 20 MG PO DAILY, (Reported) Discontinued Reason: Pt states not taking Naproxen Sodium (Aleve), 220 MG PO PRN PRN for PAIN, (Reported) Discontinued Reason: Pt states not taking Oxybutynin Chloride (Oxybutynin Chloride), 5 MG PO BID, (Reported) Discontinued Reason: Pt states not taking Pantoprazole Sodium (Pantoprazole Sodium), 40 MG PO DAILY, (Reported) Discontinued Reason: Pt states not taking Polyethylene Glycol (Miralax), 17 GM PO BID, (Reported) Discontinued Reason: Pt states not taking Target Goals Individual exercise Rx (1) BP 140/90 or 130/80 if DM or CKD (1) Aerobic active 30+min 5 days per week (1) Nutrition Date: Sep 05, 2018 Assessment: Initial Assessment Lipid- med/supplement rosuvastatin calcium Diabetes Diabetes: Yes Fasting Blood Sugar: 170 Diabetes medication glucophage Monitor Blood Sugar at home: Yes Frequency not often he stated Weight Management Weight (lbs): 211 Height (inches): 70 Waist Circumference (Inches): 44 BMI: 28.6 Weight goal: 200 Special Diet: low salt, mediteranean diet, low-fat, regular Alcohol: none Diet Access Tool: Rate your plate Score: 30 Intervention 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 Nurse/patient discussion: Yes Dietary Goals to make better choices and smaller portions Education S&S hypo/hyper glycemia, Relate Diabetes in CAD, Eating Healthy Target goal LDL-C<100 if triglycerides are >200 Non-HDL-C should be <130 (1) LDL-C<70 for high risk patients (4) HbA1c<7% (1) BMI<25 Waist cir<40in M/<35in F (1) Education Date: Sep 05, 2018 Assessment: Initial Assessment Learning Barriers: ready Knowledge Test Score: 9 Family Support: Yes Tobacco use: Yes Quit: <6 months Tobacco Use Date quit: Aug 13, 2018 Cigarettes smoked per day: 20 Smokeless tobacco: No Intervention Referral to smoking cessation: Yes Individual education and couns: Yes Education class schedule given: Yes Education: tobacco triggers, CAD, Risk factors, med compliance, cardiac A&P, Angina S/S, Sexuality Target Goals Complete cessation of tobacco use (1). Psychosocial Date: Sep 05, 2018 Assessment: Initial Assessment Psych Test (Initial/Discharge) Tool Used: CESD Score: 20 Intervention Physician Consult: Yes Physician Referral: Yes Med Change: No Stress Management Class: Yes Uses Stress Management Skills: Yes Education Education: Coping Techniques, S/S depression, Relaxation Techniques Target Goal Assess presence or absence of depression using a valid screening tool (1). Maximize coping skills (2). Positive support system (2). Patient/Program Goal Preventative Medication: Yes Beta blockade, Yes Statin/OTR lipid Lowering Fall Risk Assess: Yes Assisstive Device: cane Provider Assessment Session Number: 1 Provider Assessment: Proceed with rehab Uma Cantor RN Sep 05, 2018 11:18
[~2018-09-12 10:29] MED LIST changes: +BRIL90TA PO; +METO1TAB32 PO; +STIO1AER IN
== END 2018-09-15 ==
LOC: M CR 10:29
PROVIDERS: ATTEND Internal Medicine Cardiovascular Disease
DX: Z98.61 Coronary angioplasty status (principal)

== ENCOUNTER 2018-09-30 10:13 | Outpatient (RCR) | payer MEDICARE, MEDICAID ==
--- NOTE | 2018-10-03 08:34 | CARECAPL ---
Assessment Account #s: Re-Assessment I General Diagnoses: Stent Date of event: Aug 02, 2018 Physician: Cedric Chicas Allergies: Coded Allergies: No Known Drug Allergy (Verified Allergy, Unknown, 12/23/17) Date Entered Program: Sep 05, 2018 Risk strat for cardiac event: Low Exercise Date: Sep 30, 2018 Assessment: Re-Assessment I Exercise Prescription Modalities initiated: Cardio-Strider (mets 2.7 RPE 2), Arm Aerometer (mets 2.5 RPE 2), Dumbells (6lbs RPE 2), Recumbent Bike (mets 3.4 RpE 3) Frequency: 2-3 Duration (Minutes) minutes total exercise a day. work intervals in minutes. rest intervals in minutes. Functional Capacity Goal Sustained Metabolic Equivalent of a task (MET) goal of for minutes. Intensity: 3-Moderate Progression (METS) Increase by: METS every: sessions Angina with ex: No Medications Scheduled (Arnuity Ellipta), 1 PUFF INH DAILY, (Reported) (Stiolto Respimat 2.5-2.5 Mcg/Act), 2 PUFFS IN DAILY, (Reported) Aspirin (Aspir-81), 81 MG PO DAILY, (Reported) Levothyroxine Sodium (Synthroid), 125 MCG PO DAILY, (Reported) Metformin Hydrochloride (Metformin HCl), 500 MG PO BID, (Reported) Metoprolol Succinate (Metoprolol Succinate ER), 25 MG PO DAILY, (Reported) Ramipril (Ramipril), 2.5 MG PO DAILY, (Reported) Rosuvastatin Calcium (Rosuvastatin Calcium), 20 MG PO QHS, (Reported) Ticagrelor Base (Brilinta), 90 MG PO BID, (Reported) Vitamin D (Vitamin D), 1,000 UNIT PO DAILY, (Reported) Scheduled PRN Albuterol Sulfate (Proair Hfa), 2 PUFF INH Q4HP PRN for WHEEZING, (Reported) Current BP 110/74 Med Change: No Intervention Education: Self pulse, Ex safety, S/S to report, Low NA diet, BP medication, RPE Scale, Equipment orientation, warm up/cool down, Understand BP, Physical Active Target Goals Individual exercise Rx (1) BP 140/90 or 130/80 if DM or CKD (1) Aerobic active 30+min 5 days per week (1) Nutrition Date: Oct 03, 2018 Assessment: Re-Assessment I Med Change: No Medication Change: No Current Weight (pounds): 210.2 Intervention Nurse/patient discussion: Yes Diet Class: Yes Education S&S hypo/hyper glycemia, Relate Diabetes in CAD, Eating Healthy Target goal LDL-C<100 if triglycerides are >200 Non-HDL-C should be <130 (1) LDL-C<70 for high risk patients (4) HbA1c<7% (1) BMI<25 Waist cir<40in M/<35in F (1) Education Date: Oct 03, 2018 Assessment: Re-Assessment I Target Goals Complete cessation of tobacco use (1). Psychosocial Date: Oct 03, 2018 Assessment: Re-Assessment I Med Change: No Stress Management Class: Yes Uses Stress Management Skills: Yes Education Education: Coping Techniques, S/S depression, Relaxation Techniques Education Goals Met: Yes Target Goal Assess presence or absence of depression using a valid screening tool (1). Maximize coping skills (2). Positive support system (2). Patient/Program Goal Preventative Medication: Yes Aspirin, Yes Beta blockade, Yes NORMAN Inhibitor, Yes Statin/OTR lipid Lowering Fall Risk Assess: Yes Provider Assessment Session Number: 6 Provider Assessment: Proceed with rehab Chantal Vázquez RN Oct 03, 2018 08:34
== END 2018-10-13 ==
LOC: M CR 10:13
PROVIDERS: ATTEND Internal Medicine Cardiovascular Disease
DX: Z98.61 Coronary angioplasty status (principal)

== ENCOUNTER → 2018-10-14 | Outpatient (CLI) | payer MEDICARE ==
[2018-10-14 13:45] LABS: HEMATOCRIT 39.6 % (42.0-52.0); HEMOGLOBIN 13.6 g/dl (13.5-17.5); MEAN CORPUSCULAR HEMOGLOBIN 30.2 pg (27.0-33.0); MEAN CORPUSCULAR HGB CONC 34.3 g/dl (32.0-36.5); PLATELET COUNT, AUTOMATED 187 10^3/uL (150-450); WHITE BLOOD COUNT 5.3 10^3/uL (4.0-10.0)
[2018-10-14 13:59] LABS: ALBUMIN 4.1 GM/DL (3.2-5.2); ALT/SGPT 34 U/L (12-78); BILIRUBIN,TOTAL 0.8 MG/DL (0.2-1.0); BLOOD UREA NITROGEN 13 MG/DL (7-18); CALCIUM LEVEL 8.8 MG/DL (8.5-10.1); CARBON DIOXIDE LEVEL 26 MEQ/L (21-32); CHLORIDE LEVEL 105 MEQ/L (98-107); CHOLESTEROL LEVEL 189 MG/DL (<200); CHOLESTEROL RISK RATIO 4.973 (<5); CREATININE FOR GFR 0.79 MG/DL (0.70-1.30); GLOMERULAR FILTRATION RATE > 60.0 (>56); GLUCOSE, FASTING 179 MG/DL (70-100); HDL CHOLESTEROL 38 MG/DL (>40); NON-HDL-C 151 MG/DL; POTASSIUM SERUM 4.1 MEQ/L (3.5-5.1); SODIUM LEVEL 138 MEQ/L (136-145); TOTAL PROTEIN 7.6 GM/DL (6.4-8.2); TRIGLYCERIDES LEVEL 517 MG/DL (<150)
== END ==
LOC: M LAB 12:57
PROVIDERS: ATTEND Physician Assistant
DX: I25.10 Atherosclerotic heart disease of native coronary artery without angina pectoris (principal); E78.2 Mixed hyperlipidemia

== ENCOUNTER → 2018-12-02 | Outpatient (REF) | payer MEDICARE, MEDICAID ==
[~2018-12-02] MED LIST changes: -VICO5TAB16 PO; +VICO5TAB17 PO
[2018-12-02 14:22] LABS: ALT/SGPT 66 U/L (12-78); BLOOD UREA NITROGEN 13 MG/DL (7-18); CALCIUM LEVEL 8.9 MG/DL (8.5-10.1); CARBON DIOXIDE LEVEL 24 MEQ/L (21-32); CHLORIDE LEVEL 105 MEQ/L (98-107); CHOLESTEROL LEVEL 115 MG/DL (<200); CHOLESTEROL RISK RATIO 3.833 (<5); CREATININE FOR GFR 0.82 MG/DL (0.70-1.30); GLOMERULAR FILTRATION RATE > 60.0 (>56); GLUCOSE, FASTING 254 MG/DL (70-100); HDL CHOLESTEROL 30 MG/DL (>40); NON-HDL-C 85 MG/DL; POTASSIUM SERUM 4.1 MEQ/L (3.5-5.1); SODIUM LEVEL 136 MEQ/L (136-145); TRIGLYCERIDES LEVEL 643 MG/DL (<150)
== END ==
LOC: M LABDRAW1 12:14
PROVIDERS: ATTEND Physician Assistant
DX: I25.10 Atherosclerotic heart disease of native coronary artery without angina pectoris (principal); E78.2 Mixed hyperlipidemia; E11.9 Type 2 diabetes mellitus without complications

== ENCOUNTER → 2018-12-09 | Outpatient (REF) | payer MEDICARE, MEDICAID ==
[2018-12-09 19:30] LABS: HEMOGLOBIN A1c 7.6 %
[2018-12-09 19:34] LABS: FREE T4 1.25 NG/DL (0.76-1.46); THYROID STIMULATING HORMONE 0.145 uIU/ML (0.358-3.740)
== END ==
LOC: M SFHCPLAZ 16:05
PROVIDERS: ATTEND Nurse Practitioner Family
DX: E03.9 Hypothyroidism, unspecified (principal); E11.9 Type 2 diabetes mellitus without complications

== ENCOUNTER → 2019-01-27 | Outpatient (REF) | payer MEDICARE, MEDICAID ==
[2019-01-27 16:21] LABS: BLOOD UREA NITROGEN 9 MG/DL (7-18); CALCIUM LEVEL 8.9 MG/DL (8.5-10.1); CARBON DIOXIDE LEVEL 28 MEQ/L (21-32); CHLORIDE LEVEL 107 MEQ/L (98-107); CREATININE FOR GFR 0.85 MG/DL (0.70-1.30); FREE T4 1.04 NG/DL (0.76-1.46); GLOMERULAR FILTRATION RATE > 60.0 (>56); GLUCOSE, FASTING 151 MG/DL (70-100); POTASSIUM SERUM 3.7 MEQ/L (3.5-5.1); SODIUM LEVEL 141 MEQ/L (136-145)
[2019-01-27 16:55] LABS: HEMOGLOBIN A1c 6.5 %
== END ==
LOC: M LABDRAW1 12:08
PROVIDERS: ATTEND Nurse Practitioner Family
DX: E03.9 Hypothyroidism, unspecified (principal); E11.9 Type 2 diabetes mellitus without complications

== ENCOUNTER → 2019-03-10 | Outpatient (CLI) | payer MEDICARE, MEDICAID ==
[~2019-03-10] MED LIST changes: -DULO1CAP2; +DULO1CAP5; -ROSU20TA4 PO; +ROSU20TA5 PO
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
== END ==
LOC: M PAIN 13:45
PROVIDERS: ATTEND Anesthesiology
DX: M50.10 Cervical disc disorder with radiculopathy, unspecified cervical region (principal); M79.18 Myalgia, other site; M96.1 Postlaminectomy syndrome, not elsewhere classified; I25.10 Atherosclerotic heart disease of native coronary artery without angina pectoris; E78.5 Hyperlipidemia, unspecified; E11.9 Type 2 diabetes mellitus without complications; E03.9 Hypothyroidism, unspecified; G47.33 Obstructive sleep apnea (adult) (pediatric); J44.9 Chronic obstructive pulmonary disease, unspecified; I25.2 Old myocardial infarction; Z95.5 Presence of coronary angioplasty implant and graft; F17.210 Nicotine dependence, cigarettes, uncomplicated; Z88.8 Allergy status to other drugs, medicaments and biological substances; Z79.51 Long term (current) use of inhaled steroids; Z79.82 Long term (current) use of aspirin; Z79.01 Long term (current) use of anticoagulants; Z79.84 Long term (current) use of oral hypoglycemic drugs; Z79.899 Other long term (current) drug therapy

== ENCOUNTER → 2019-04-13 | Outpatient (REF) | payer MEDICARE, MEDICAID ==
[2019-04-13 13:09] LABS: BASO % 0.8 % (0.0-1.0); EOS # 0.2 10^3/uL (0.0-0.50); EOS % 4.7 % (0.0-3.0); HEMATOCRIT 43.1 % (42.0-52.0); HEMOGLOBIN 14.9 g/dl (13.5-17.5); LYMPH # 1.3 10^3/uL (1.5-4.5); LYMPH % 28.2 % (24.0-44.0); MEAN CORPUSCULAR HEMOGLOBIN 30.1 pg (27.0-33.0); MEAN CORPUSCULAR HGB CONC 34.6 g/dl (32.0-36.5); MEAN CORPUSCULAR VOLUME 87.1 fl (80.0-96.0); MONO # 0.4 10^3/uL (0.0-0.8); MONO % 9.3 % (0.0-5.0); NEUTROPHILS # 2.7 10^3/uL (1.8-7.7); NEUTROPHILS % 56.8 % (36.0-66.0); PLATELET COUNT, AUTOMATED 191 10^3/uL (150-450); RED BLOOD COUNT 4.95 10^6/uL (4.30-6.10); WHITE BLOOD COUNT 4.7 10^3/uL (4.0-10.0)
[2019-04-13 13:17] LABS: CHOLESTEROL LEVEL 92 MG/DL (<200); CHOLESTEROL RISK RATIO 3.172 (<5); HDL CHOLESTEROL 29 MG/DL (>40); NON-HDL-C 63 MG/DL; TRIGLYCERIDES LEVEL 414 MG/DL (<150)
[2019-04-13 13:28] LABS: ALBUMIN 4.1 GM/DL (3.2-5.2); ALT/SGPT 43 U/L (12-78); BILIRUBIN,TOTAL 1.5 MG/DL (0.2-1.0); BLOOD UREA NITROGEN 8 MG/DL (7-18); CARBON DIOXIDE LEVEL 27 MEQ/L (21-32); CHLORIDE LEVEL 106 MEQ/L (98-107); CREATININE FOR GFR 0.87 MG/DL (0.70-1.30); FREE T4 1.23 NG/DL (0.76-1.46); GLOMERULAR FILTRATION RATE > 60.0 (>56); GLUCOSE, FASTING 116 MG/DL (70-100); POTASSIUM SERUM 3.9 MEQ/L (3.5-5.1); SODIUM LEVEL 139 MEQ/L (136-145); THYROID STIMULATING HORMONE 0.756 uIU/ML (0.358-3.740); TOTAL PROTEIN 7.4 GM/DL (6.4-8.2)
[2019-04-13 13:59] LABS: CREATININE, URINE 71.1 MG/DL; MAU/CREAT RATIO 376.9 MCG/MG (0.0-30.0)
[2019-04-13 14:51] LABS: HEMOGLOBIN A1c 6.1 %
== END ==
LOC: M SFHCPLAZ 10:53
PROVIDERS: ATTEND Nurse Practitioner Family
DX: E11.9 Type 2 diabetes mellitus without complications (principal); E78.5 Hyperlipidemia, unspecified; E03.9 Hypothyroidism, unspecified; R63.4 Abnormal weight loss
CPT/HCPCS: 80053; 80061; 82043; 83036; 84439; 84443; 85025; G0463

== ENCOUNTER → 2019-05-01 | Outpatient (CLI) | payer MEDICARE, MEDICAID ==
[~2019-05-01] MED LIST changes: +GASTROGRAFIN SOLUTION 30ML (Q9963) As Ordered ONE; +ISOVUE-370 76% 100ML VIAL (Q9967) As Ordered ONE; -SIMV40TA2 PO; +SIMV40TA20 PO; +VITA100066 PO
--- NOTE | 2019-05-02 07:26 | REP ---
Clinical: Weight loss and epigastric pain. Technique: Axial contrast enhanced images from the lung bases to the pubic symphysis using oral (per protocol) and 100 ml Isovue 370 intravenous contrast material with coronal and sagittal re-formations. Comparison: 03/31/2018. Findings: Lung bases are essentially clear/stable. Liver, spleen, pancreas, gallbladder, bilateral adrenal glands and kidneys are normal. The enteric system is without obstruction or acute inflammatory process. Pelvis demonstrates normal bladder and age appropriate prostate/seminal vesicles. No ascites. No free air. No adenopathy. Abdominal aorta and branch vessels demonstrate scattered atherosclerotic changes without aneurysm or dissection. Musculoskeletal structures demonstrate age-related degenerative changes without focal osseous abnormality. Impression: Normal contrast enhanced CT of the abdomen and pelvis. Electronically Signed by Dipak Griffiths MD 05/02/2019 07:17 A
== END ==
LOC: M RAD 09:27
PROVIDERS: ATTEND Nurse Practitioner Family
DX: R63.4 Abnormal weight loss (principal); R10.13 Epigastric pain
CPT/HCPCS: 74177; Q9963; Q9967

== ENCOUNTER → 2019-05-10 | Outpatient (CLI) | payer MEDICARE ==
[~2019-05-10] MED LIST changes: -GASTROGRAFIN SOLUTION 30ML (Q9963) As Ordered ONE; +SIMV40TA2 PO; -SIMV40TA20 PO; -VITA100066 PO
--- NOTE | 2019-05-10 14:49 | REP ---
CT ANGIOGRAM ABDOMINAL AORTA AND MESENTERIC ARTERIES: Following the intravenous administration of 100 mL of Isovue 370. Imaging is performed of the abdominal aorta and branches in the axial plane. Sagittal, coronal, and 3D MIP reconstruction images are performed. CLINICAL HISTORY: Abdominal pain after eating with weight loss. The visualized lung bases demonstrate a calcified granuloma in the lingula. No infiltrate is seen. Abdominal aorta is normal in caliber with no aneurysm. Mild scattered atherosclerotic calcifications are seen predominantly distally with slight ectasia of the distal abdominal aorta below the level of the renal arteries, maximum AP diameter is 2 cm. There is no dissection. Celiac and superior mesenteric arteries are widely patent with no stenosis. Inferior mesenteric artery is patent. A single renal artery is seen bilaterally and both are widely patent with no renal artery stenosis. The liver, spleen, adrenals, pancreas, gallbladder, and kidneys are unremarkable. There is no hydronephrosis. There is no adenopathy. There is no free air or free fluid. Dorsal column stimulator device is noted. IMPRESSION: No acute abnormalities. No evidence of mesenteric artery or renal artery stenosis. Electronically Signed by Aiden Salazar MD 05/10/2019 03:23 P
== END ==
LOC: M RAD 12:32
PROVIDERS: ATTEND Nurse Practitioner Family
DX: R10.13 Epigastric pain (principal); Z96.9 Presence of functional implant, unspecified
CPT/HCPCS: 74175; G0463; Q9967

== ENCOUNTER → 2019-05-22 | Outpatient (CLI) | payer MEDICARE ==
[~2019-05-22] MED LIST changes: +E-Z-GAS II EFFERVESCENT PACKET (SODIUM BICARB./CITRIC ACID/SIMETHICONE) As Ordered ONE; +E-Z-HD 98% w/w 340GM SUSP BTL As Ordered ONE; +E-Z-PAQUE 96% w/w SUSP 176GM BTL As Ordered ONE; -ISOVUE-370 76% 100ML VIAL (Q9967) As Ordered ONE
--- NOTE | 2019-05-22 17:07 | REP ---
UPPER GI AIR CONTRAST AND SMALL BOWEL FOLLOW THROUGH The procedure was performed under the direct supervision of Dr. Salazar. The images were reviewed with Dr. Salazar The balance and hairspring assembler film shows no organomegaly or pathological masses. The intestinal gas pattern is non-specific. There is a dorsal column stimulator in place with the power pack overlying the left abdomen. Liquid barium and gas producing crystals were given in the erect position as well as liquid barium in the prone oblique position in order to perform a double contrast upper GI examination. Additionally liquid barium was given at the end of the examination in order to perform a small bowel follow through. The oral and pharyngeal stages of deglutition are unremarkable. Esophageal transport is prompt and efficient. There are multiple, scattered, tiny, plaque-like filling defects in the esophagus which may represent early esophagitis. There is no blu ulcer identified. Consider endoscopy for further evaluation. There is no stricture mucosal ring or hiatal hernia. Gastroesophageal reflux is not demonstrated on this examination. Within the stomach there are mildly thickened folds which may represent gastritis. There is no blu ulcer identified. In the duodenum there are mildly thickened folds which may represent duodenitis. There is no blu ulcer identified. The visualized portion of the proximal small bowel appears normal in course and caliber. The barium column was followed through the small bowel to the level of the terminal ileum. Small bowel transit time is approximately 30 minutes . During fluoroscopy gentle palpation shows all loops are freely movable and pliable. There are no fixed or angulated loops. The small bowel mucosal pattern is normal in course and caliber. There is no transition to suggest a partial small-bowel obstruction. Spot filming of the terminal ileum shows it to be unremarkable. Impression: 1. In the esophagus there are multiple scattered tiny plaque-like filling defects which may represent early esophagitis. There is no blu ulcer identified. Consider endoscopy for further evaluation. 2. There are mildly thickened folds in the stomach which may represent gastritis. There is no blu ulcer identified. 3. There are mildly thickened folds in the duodenum which may represent duodenitis. There is no blu ulcer identified. 2 minutes of fluoro time was utilized for this procedure. Electronically Signed by ROBIN Cavanaugh 05/22/2019 03:02 P Electronically Signed by Aiden Salazar MD 05/22/2019 04:58 P
== END ==
LOC: M RAD 10:24
PROVIDERS: ATTEND Nurse Practitioner Family
DX: R10.13 Epigastric pain (principal)

== ENCOUNTER → 2019-07-17 | Outpatient (CLI) | payer MEDICARE, MEDICAID ==
[~2019-07-17] MED LIST changes: -E-Z-GAS II EFFERVESCENT PACKET (SODIUM BICARB./CITRIC ACID/SIMETHICONE) As Ordered ONE; -E-Z-HD 98% w/w 340GM SUSP BTL As Ordered ONE; -E-Z-PAQUE 96% w/w SUSP 176GM BTL As Ordered ONE; -SIMV40TA2 PO; +SIMV40TA20 PO
--- NOTE | 2019-07-17 12:17 | REP ---
Clinical: Previous nephrolithiasis. Technique: Three supine views of the abdomen and pelvis. Findings: Bowel gas pattern is nonspecific although fecal stasis and possible constipation cannot be excluded. Epidural stimulator extends to the lower thoracic level. Small nonobstructing calculi overlie the left kidney measuring up to 3 mm. Phleboliths noted in the pelvis. Skeletal structures are grossly intact. Impression: Nonspecific bowel gas pattern. Cannot exclude left intrarenal calculus. Electronically Signed by Dipak Griffiths MD 07/17/2019 12:09 P
--- NOTE | 2019-07-17 12:32 | REP ---
CT cervical spine: 07/17/2019. Indication: Cervical radiculopathy. Comparison: 08/11/2018. Technique: Unenhanced axial CT images of the cervical spine were obtained with coronal and sagittal reconstructions provided. Findings: There is no acute fracture, subluxation or dislocation. Disc osteophyte at C6/C7 is redemonstrated and essentially stable. The neural foramen appear patent at each cervical level. No areas of severe spinal canal narrowing are detected. Bilateral carotid atherosclerotic disease is present without severe luminal narrowing detected by this technique. Impression: No acute osseous injury of the cervical spine. Degenerative sequelae most pronounced at C6/C7. Electronically Signed by Ye Muro DO 07/17/2019 12:24 P
--- NOTE | 2019-07-17 13:32 | REP ---
MRI cervical spine: 07/17/2019. Indication: Cervical radiculopathy. Comparison: None. Technique: Multiplanar short and long TR sequences of the cervical spine were performed without IV Gadolinium. Findings: Vertebral body alignment is within anatomical limits. No worrisome marrow signal is present. New no abnormal cord signal is present. The craniocervical junction is unremarkable. The vertebral artery flow voids are also unremarkable. C1/C2, CT/C3, C3/C4 and C4/C5: There is no focal disc herniation or significant spinal canal / neural foraminal narrowing. C6/C7: There is a right paracentral/lateral disc protrusion superimposed on a diffuse disc bulge with minimal flattening of the right ventral lateral cord. There is moderate right neural foraminal narrowing. C7/T1: There is no focal disc herniation or significant spinal canal / neural foraminal narrowing. Impression: Degenerative sequelae at C6/C7 as described more pronounced on the right. Electronically Signed by Ye Muro DO 07/17/2019 01:23 P
== END ==
LOC: M RAD 11:19
PROVIDERS: ATTEND Neurological Surgery
DX: M47.22 Other spondylosis with radiculopathy, cervical region (principal); R93.7 Abnormal findings on diagnostic imaging of other parts of musculoskeletal system; M50.323 Other cervical disc degeneration at C6-C7 level

== ENCOUNTER → 2019-07-20 | Outpatient (CLI) | payer MEDICARE, MEDICAID ==
--- NOTE | 2019-07-20 11:27 | REP ---
NUCLEAR GASTRIC EMPTYING SCAN: Following the oral administration of 1.1 mCi of technetium-99m sulfur colloid in two scrambled eggs and 2 ounces of water, multiple images of the upper abdomen are performed in the anterior and posterior projections. Gastric activity is measured. At the end of 90 minutes 58% of the ingested activity has emptied from the stomach. T1/2 is calculated to be 83 minutes which is normal. IMPRESSION: Normal gastric emptying. Electronically Signed by Aiden Salazar MD 07/20/2019 12:48 P
== END ==
LOC: M RAD 07:56
PROVIDERS: ATTEND Internal Medicine Gastroenterology
DX: K31.84 Gastroparesis (principal)
CPT/HCPCS: 78264; A9541

== ENCOUNTER → 2019-08-21 | Outpatient (CLI) | payer MEDICARE ==
[2019-08-21 13:01] LABS: HEMOGLOBIN A1c 5.7 %
[2019-08-21 13:16] LABS: MALB URINE SIEMENS 61.5 MG/L; MAU/CREAT RATIO 55.4 MCG/MG (0.0-30.0)
[2019-08-21 13:19] LABS: ALT/SGPT 73 U/L (12-78); BILIRUBIN,TOTAL 0.9 MG/DL (0.2-1.0); BLOOD UREA NITROGEN 12 MG/DL (7-18); CALCIUM LEVEL 9.3 MG/DL (8.5-10.1); CARBON DIOXIDE LEVEL 28 MEQ/L (21-32); CHLORIDE LEVEL 104 MEQ/L (98-107); CREATININE FOR GFR 0.93 MG/DL (0.70-1.30); FREE T4 0.46 NG/DL (0.76-1.46); GLOMERULAR FILTRATION RATE > 60.0 (>56); GLUCOSE, FASTING 117 MG/DL (70-100); POTASSIUM SERUM 4.1 MEQ/L (3.5-5.1); SODIUM LEVEL 140 MEQ/L (136-145); TOTAL 25(OH) VITAMIN D 22.7 NG/ML (30.0-100.0); TOTAL PROTEIN 7.5 GM/DL (6.4-8.2)
== END ==
LOC: M LAB 12:04
PROVIDERS: ATTEND Nurse Practitioner Family
DX: E11.9 Type 2 diabetes mellitus without complications (principal); E03.9 Hypothyroidism, unspecified; E55.9 Vitamin D deficiency, unspecified; Z79.899 Other long term (current) drug therapy

== ENCOUNTER 2019-09-07 12:41 | Day surgery (SDC) | payer MEDICARE, MEDICAID ==
[~2019-09-07] VITALS: Ht 182.9 cm; Wt 85.7 kg
[~2019-09-07 12:41] MED LIST changes: +NS 1,000 ML IV ONE; +VITA100066 PO
[2019-09-07] MEDS ORDERED: propofoL 200 MG/20 ML VIAL As Ordered ONE (13:50)
[2019-09-07] MEDS ORDERED: LIDOCAINE 2% INJ 100 MG/5 ML SDV (FOR ANES.) As Ordered ONE (13:50)
[2019-09-07] MEDS ORDERED: fentaNYL 100 MCG/2 ML INJECTION (J3010) As Ordered ONE (14:24)
--- NOTE | 2019-09-07 14:31 | ROOR ---
Patient Name: David Meyers Procedure Date: 09/07/2019 2:13 PM Date of : 1965 Age: 54 Room: [facility] Gender: Male Note Status: Finalized Procedure: Upper GI endoscopy Indications: Epigastric abdominal pain, Suspected gastroparesis, Nausea with vomiting, Weight loss Providers: Arnulfo VASQUEZ MD Referring MD: Dorene Lloyd NP Requesting Provider: Medicines: Monitored Anesthesia Care Complications: No immediate complications. Procedure: Pre-Anesthesia Assessment: - The heart rate, respiratory rate, oxygen saturations, blood pressure, adequacy of pulmonary ventilation, and response to care were monitored throughout the procedure. The Endoscope was introduced through the mouth, and advanced to the second part of duodenum. The upper GI endoscopy was accomplished without difficulty. The patient tolerated the procedure well. Findings: Localized minimal inflammation characterized by erythema was found in the gastric antrum. Biopsies were taken with a cold forceps for histology. The exam of the stomach was otherwise normal. The examined esophagus was normal. The examined duodenum was normal. Impression: - Slight/minimal gastritis (dubious significance). Biopsied. - The stomach is otherwise normal. - Normal esophagus. - Normal examined duodenum. Recommendation: - Await pathology results. - Telephone endoscopist for pathology results in 2 weeks. - Perform a RUQ ultrasound. - Perform a HIDA (hepatobiliary iminodiacetic acid) scan. - My office will call you in the next few days to set you up for this study/exam. Arnulfo Vasquez MD Arnulfo VASQUEZ MD 09/07/2019 2:30:47 PM Electronically signed by Arnulfo VASQUEZ MD Number of Addenda: 0 Note Initiated On: 09/07/2019 2:13 PM Estimated Blood Loss: Estimated blood loss: none.
[2019-09-07 14:56] VITALS: BP 132/67
== END 2019-09-07 14:59 | disposition home or self-care (01) ==
LOC: M OPP 12:41
PROVIDERS: ATTEND Internal Medicine Gastroenterology
DX: K29.70 Gastritis, unspecified, without bleeding (principal); R10.13 Epigastric pain; R11.2 Nausea with vomiting, unspecified; R63.4 Abnormal weight loss; F17.210 Nicotine dependence, cigarettes, uncomplicated; Z79.82 Long term (current) use of aspirin; Z79.84 Long term (current) use of oral hypoglycemic drugs; Z79.899 Other long term (current) drug therapy
CPT/HCPCS: 43239; 88305; J3010

== ENCOUNTER → 2019-09-08 | Outpatient (CLI) | payer MEDICARE, MEDICAID ==
[~2019-09-08] MED LIST changes: -NS 1,000 ML IV ONE
--- NOTE | 2019-09-08 15:39 | REP ---
Chest x-ray: Two views. History: Respiratory exam. Comparison study: August 13, 2018 and August 10, 2016. Findings: The lungs are well inflated and clear. Pleural angles are sharp. Heart size is normal. There is coronary artery stent material visible on the lateral film overlying the heart. Pulmonary vasculature is not increased. No significant bony abnormality. There is catheter material in the lower thoracic spinal canal unchanged from the comparison study. Impression: No active cardiopulmonary disease. Electronically Signed by Bernabe Cheek MD 09/08/2019 03:30 P
== END ==
LOC: M RAD 12:17
PROVIDERS: ATTEND Neurological Surgery
DX: Z01.811 Encounter for preprocedural respiratory examination (principal); Z18.89 Other specified retained foreign body fragments

== ENCOUNTER → 2019-09-11 | Outpatient (CLI) | payer MEDICARE, MEDICAID ==
[2019-09-11 10:57] LABS: FREE T4 1.21 NG/DL (0.76-1.46); THYROID STIMULATING HORMONE 4.17 uIU/ML (0.358-3.740)
== END ==
LOC: M LAB 09:02
PROVIDERS: ATTEND Family Medicine
DX: E03.9 Hypothyroidism, unspecified (principal)

== ENCOUNTER → 2019-09-12 | Outpatient (CLI) | payer MEDICARE, MEDICAID ==
--- NOTE | 2019-09-13 04:15 | REP ---
Clinical: Epigastric pain. Technique: Real time bowen scale ultrasound examination using curved array transducer. Findings: Liver and pancreas are normal in contour, size, echogenicity without focal hepatic or pancreatic lesion identified. The gallbladder is normal and without gallstones, wall thickening, or pericholecystic fluid. No biliary ductal dilatation is appreciated and the common bile duct measures 4.0 mm. The right kidney is normal in reniform shape without hydronephrosis and measures 11.9 x 6.2 x 5.2 cm. Impression: Normal right upper quadrant ultrasound. Electronically Signed by Dipak Griffiths MD 09/13/2019 04:07 A
== END ==
LOC: M RAD 10:07
PROVIDERS: ATTEND Internal Medicine Gastroenterology
DX: Z01.818 Encounter for other preprocedural examination (principal); R11.0 Nausea; R10.13 Epigastric pain

== ENCOUNTER → 2019-09-12 | Outpatient (CLI) | payer MEDICARE, MEDICAID ==
[2019-09-12 11:38] LABS: BASO % 0.6 % (0.0-1.0); EOS # 0.2 10^3/uL (0.0-0.5); EOS % 4.1 % (0.0-3.0); HEMATOCRIT 37.9 % (42.0-52.0); HEMOGLOBIN 12.5 g/dl (13.5-17.5); LYMPH # 1.5 10^3/uL (1.5-5.0); LYMPH % 31.7 % (24.0-44.0); MEAN CORPUSCULAR HEMOGLOBIN 30.8 pg (27.0-33.0); MEAN CORPUSCULAR VOLUME 93.3 fl (80.0-96.0); MONO # 0.4 10^3/uL (0.0-0.8); MONO % 8.1 % (0.0-5.0); NEUTROPHILS # 2.6 10^3/uL (1.5-8.5); NEUTROPHILS % 55.3 % (36.0-66.0); PLATELET COUNT, AUTOMATED 157 10^3/uL (150-450); RED BLOOD COUNT 4.06 10^6/uL (4.30-6.10); WHITE BLOOD COUNT 4.7 10^3/uL (4.0-10.0)
[2019-09-12 11:48] LABS: INR 1.05; PROTHROMBIN TIME 13.4 SECONDS (11.8-14.0)
[2019-09-12 11:49] LABS: PARTIAL THROMBOPLASTIN TIME 27.4 SECONDS (25.0-38.4)
[2019-09-12 12:06] LABS: ALBUMIN 4.2 GM/DL (3.2-5.2); ALT/SGPT 49 U/L (12-78); BILIRUBIN,TOTAL 0.6 MG/DL (0.2-1.0); BLOOD UREA NITROGEN 12 MG/DL (7-18); CALCIUM LEVEL 8.8 MG/DL (8.5-10.1); CARBON DIOXIDE LEVEL 32 MEQ/L (21-32); CHLORIDE LEVEL 109 MEQ/L (98-107); CREATININE FOR GFR 0.88 MG/DL (0.70-1.30); GLOMERULAR FILTRATION RATE > 60.0 (>56); GLUCOSE, FASTING 127 MG/DL (70-100); POTASSIUM SERUM 4.1 MEQ/L (3.5-5.1); SODIUM LEVEL 143 MEQ/L (136-145); TOTAL PROTEIN 7.3 GM/DL (6.4-8.2)
== END ==
LOC: M LAB 11:09
PROVIDERS: ATTEND Neurological Surgery
DX: Z01.818 Encounter for other preprocedural examination (principal)

== ENCOUNTER 2019-09-18 11:54 | Emergency (ER) | payer MEDICARE, MEDICAID ==
[~2019-09-18] VITALS: Ht 182.9 cm; Wt 85.9 kg
[2019-09-18] MEDS ORDERED: HYDR-3713 (12:03)
[2019-09-18 12:40] LABS: BASO % 0.5 % (0.0-1.0); EOS # 0.2 10^3/uL (0.0-0.5); EOS % 3.8 % (0.0-3.0); HEMATOCRIT 34.3 % (42.0-52.0); HEMOGLOBIN 11.8 g/dl (13.5-17.5); LYMPH # 0.6 10^3/uL (1.5-5.0); LYMPH % 13.2 % (24.0-44.0); MEAN CORPUSCULAR HEMOGLOBIN 31.2 pg (27.0-33.0); MEAN CORPUSCULAR HGB CONC 34.4 g/dl (32.0-36.5); MEAN CORPUSCULAR VOLUME 90.7 fl (80.0-96.0); MONO # 0.3 10^3/uL (0.0-0.8); NEUTROPHILS # 3.2 10^3/uL (1.5-8.5); NEUTROPHILS % 74.3 % (36.0-66.0); PLATELET COUNT, AUTOMATED 149 10^3/uL (150-450); RED BLOOD COUNT 3.78 10^6/uL (4.30-6.10); WHITE BLOOD COUNT 4.2 10^3/uL (4.0-10.0)
[2019-09-18 12:49] LABS: APPEARANCE, URINE CLEAR (CLEAR); BACTERIA, URINE AUTO NEGATIVE (NEGATIVE); BILIRUBIN, URINE AUTO NEGATIVE (NEGATIVE); BLOOD, URINE BLOOD NEGATIVE (NEGATIVE); COLOR, URINE YELLOW (YELLOW); GLUCOSE, URINE (UA) AUTO NEGATIVE (NEGATIVE); KETONE, URINE AUTO NEGATIVE (NEGATIVE); LEUKOCYTE ESTERASE, URINE AUTO NEGATIVE (NEGATIVE); MUCUS, URINE SMALL (NEGATIVE); NITRITE, URINE AUTO NEGATIVE (NEGATIVE); PROTEIN, URINE AUTO NEGATIVE (NEGATIVE); RBC, URINE AUTO 2 /HPF (0-3); SPECIFIC GRAVITY URINE AUTO 1.012 (1.002-1.035); SQUAMOUS EPITHELIAL CELL UR AU 0 /HPF (0-6); WBC, URINE AUTO 1 /HPF (0-3)
[2019-09-18 13:08] LABS: ALBUMIN 3.7 GM/DL (3.2-5.2); ALT/SGPT 60 U/L (12-78); BILIRUBIN,DIRECT 0.3 MG/DL (0.0-0.2); BILIRUBIN,TOTAL 1.1 MG/DL (0.2-1.0); BLOOD UREA NITROGEN 12 MG/DL (7-18); CALCIUM LEVEL 8.7 MG/DL (8.5-10.1); CARBON DIOXIDE LEVEL 28 MEQ/L (21-32); CHLORIDE LEVEL 101 MEQ/L (98-107); GLOMERULAR FILTRATION RATE > 60.0 (>56); GLUCOSE, FASTING 143 MG/DL (70-100); POTASSIUM SERUM 3.6 MEQ/L (3.5-5.1); SODIUM LEVEL 136 MEQ/L (136-145)
[2019-09-18 13:18] LABS: INFLUENZA A AMPLIFICATION POSITIVE (NEGATIVE); INFLUENZA B AMPLIFICATION NEGATIVE (NEGATIVE)
--- NOTE | 2019-09-18 13:18 | REP ---
Chest x-ray: Two views. History: Dyspnea and cough. Comparison chest x-ray: September 08, 2019. There is discoid atelectasis in the left base which is a new finding. Most prominent in the lower lobe. There is coronary artery vascular stent material again noted along the right and anterior margins of the heart. Lung garcia are otherwise clear. The pleural angles are sharp. The heart itself is not enlarged. Pulmonary vasculature is not increased. Impression: Linear plate-like atelectasis left lower lobe, new finding compared to September 08, 2019. Status post coronary artery stenting. Otherwise no acute disease. Electronically Signed by Bernabe Cheek MD 09/18/2019 03:18 P
[2019-09-18] MEDS ORDERED: ISOVUE-370 76% 100ML VIAL (Q9967) As Ordered ONE (13:48)
[2019-09-18] MEDS ORDERED: ACETAMINOPHEN 500 MG TAB PO ONE ×2 (14:15→15:45)
--- NOTE | 2019-09-18 14:45 | REP ---
CT brain without contrast: History: Headache. Postop cervical spine surgery. Findings: Digital resource engineer view is unremarkable. Bone window settings demonstrate an intact bony calvarium. There is moderate mucosal thickening affecting the ethmoid air cells bilaterally. Otherwise the visualized paranasal sinuses are clear. No intraorbital abnormality is seen. Lateral, third, and fourth ventricles are normal in size and position. Salazar-white differentiation pattern is normal above below the tentorium. There is no evidence of intracranial hemorrhage . No mass, infarct, extra-axial fluid collection, or midline shift is seen. Impression: Mucosal thickening affecting the ethmoid air cells bilaterally consistent with sinusitis. Otherwise negative noncontrast head CT. Electronically Signed by Bernabe Cheek MD 09/18/2019 03:22 P
--- NOTE | 2019-09-18 14:47 | REP ---
Soft-tissue neck with IV contrast: History: Headache. 5 days post cervical spine fusion. Rule out infection. CT contrast dose: 100 mL of intravenous Isovue [address] findings: Digital archeologist classical lateral view and AP view demonstrates cervical spine fusion hardware in the lower cervical spine. Prevertebral soft tissues are not widened on lateral archeologist classical view. The patient is status post C6-7 fusion. No malalignment is seen. No abnormal postop fluid collection is appreciated. No vascular abnormality is seen. No bony destructive lesion is seen. The lung apices are clear. Impression: Status post C6-7 disc fusion. No malalignment, abnormal fluid collection, or bony destructive lesion seen. Electronically Signed by Bernabe Cheek MD 09/18/2019 03:22 P
--- NOTE | 2019-09-18 14:54 | REP ---
CT of the chest with IV contrast: Comparisons are the chest CT dated 06/08/2016 and the plain film PA and lateral chest earlier today. There is a large focal zone of discoid atelectasis in the left lower lobe lobe corresponding to the findings on the plain film study earlier today. This was not present on the comparison chest CT. There is a calcified granuloma inferiorly in the lingula. This is unchanged from the comparison CT. There are no infiltrates or pleural effusions otherwise. There are no other masses or nodules. There is no hilar adenopathy. There is no mediastinal adenopathy. The azygos node measures 1 cm short axis which is upper normal. There is no axillary adenopathy. There are calcified granulomas in the right hilus. The thoracic aorta is unremarkable. Cardiac size is normal. There are coronary artery stents. Cardiac size is normal. There is no pericardial effusion. The visualized upper abdominal contents are unremarkable except for tubing or wire within the neural canal, possibly a spinal stimulator. Impression: Large zone of discoid atelectasis in the left lower lobe. Calcified granuloma in the lingula and in the right hilus. Coronary artery stent. Global spinal stimulator in the neural canal. Electronically Signed by Aiden Lorenzo MD 09/18/2019 02:47 P
[2019-09-18] MEDS ORDERED: NS 1,000 ML IV ONE (15:30)
[2019-09-18] MEDS ORDERED: OSELTAMIVIR PHOSPHATE 75 MG CAP (TAMIFLU) PO ONE (15:45)
[2019-09-18] MEDS ORDERED: OSEL75CA PO (17:40)
[2019-09-18 17:49] VITALS: BP 98/57
--- NOTE | 2019-09-19 12:16 | ED PDOC ---
Post-Departure Follow-Up yuval baltazar faxed formal report of ct chest for fu Franco Castillo MD Sep 19, 2019 12:16
== END 2019-09-18 18:08 | disposition home or self-care (01) ==
LOC: M ED 11:54
DX: J09.X2 Influenza due to identified novel influenza A virus with other respiratory manifestations (principal); I51.9 Heart disease, unspecified; E11.9 Type 2 diabetes mellitus without complications; G47.33 Obstructive sleep apnea (adult) (pediatric); J44.9 Chronic obstructive pulmonary disease, unspecified; E78.5 Hyperlipidemia, unspecified; E03.9 Hypothyroidism, unspecified; Z95.5 Presence of coronary angioplasty implant and graft; F17.200 Nicotine dependence, unspecified, uncomplicated; R91.8 Other nonspecific abnormal finding of lung field; Z96.9 Presence of functional implant, unspecified; M43.22 Fusion of spine, cervical region; Z79.82 Long term (current) use of aspirin; Z79.899 Other long term (current) drug therapy
CPT/HCPCS: 70450; 70491; 71046; 71260; 80048; 80076; 81001; 83605; 85025; 87040; 87086; 87502; 93041; 96360; 96361; 99285; Q9967

== ENCOUNTER → 2019-09-29 | Outpatient (CLI) | payer MEDICARE, MEDICAID ==
[~2019-09-29] MED LIST changes: +HYDR-3713; +OSEL75CA PO
--- NOTE | 2019-09-29 08:42 | REP ---
Clinical: Radiculopathy. Technique: AP, lateral, open mouth views of the cervical spine. Findings: Evidence of prior anterior fixation at the C6-7 level. Alignment is maintained. Minimal age-related changes noted. Disc spaces are relatively normal by radiographic evaluation. No acute fracture / compression injury or subluxation. Impression: Satisfactory alignment. Mild generalized age-related changes. Electronically Signed by Dipak Griffiths MD 09/29/2019 08:33 A
== END ==
LOC: M RAD 08:02
PROVIDERS: ATTEND Neurological Surgery
DX: M47.22 Other spondylosis with radiculopathy, cervical region (principal); M50.20 Other cervical disc displacement, unspecified cervical region; M50.30 Other cervical disc degeneration, unspecified cervical region

== ENCOUNTER → 2019-10-13 | Outpatient (CLI) | payer MEDICARE, MEDICAID ==
--- NOTE | 2019-10-13 11:24 | REP ---
Hepatobiliary scan and gallbladder ejection fraction: History: Other specified disease of the gallbladder. Nausea and epigastric pain. Comparison study April 24, 2014. Technique: 6.6 mCi of technetium-99m mebrofenin was injected and sequential anterior images are acquired. 65 minutes after the mebrofenin injection, the patient consumed 8 ounces Ensure and an additional 60 minutes of imaging was acquired. Regions of interest are plotted around the gallbladder. Findings: The initial hepatocellular parenchymal uptake phase is normal and homogeneous. Intra- and extra-hepatic bile ducts are labeled by the 15 -minute image. The gallbladder is first labeled on the 20 -minute image. There is normal washout from the liver parenchyma into the gallbladder and small intestine on subsequent images. The gallbladder ejection fraction is 0.60 %. Values greater than 35 % are considered normal with this technique. Impression: Normal hepatobiliary scan and normal gallbladder ejection fraction. Electronically Signed by Bernabe Cheek MD 10/13/2019 11:16 A
== END ==
LOC: M RAD 08:33
PROVIDERS: ATTEND Internal Medicine Gastroenterology
DX: K82.8 Other specified diseases of gallbladder (principal); R11.0 Nausea; R10.13 Epigastric pain; E03.9 Hypothyroidism, unspecified; E11.9 Type 2 diabetes mellitus without complications; E55.9 Vitamin D deficiency, unspecified; Z79.899 Other long term (current) drug therapy
CPT/HCPCS: 36415; 78227; 80053; 82043; 82306; 83036; 84439; 84443; A9537; J2805

== ENCOUNTER → 2019-10-13 | Outpatient (CLI) | payer MEDICARE, MEDICAID ==
[2019-10-13 09:51] LABS: ALBUMIN 3.7 GM/DL (3.2-5.2); ALT/SGPT 70 U/L (12-78); BILIRUBIN,TOTAL 0.6 MG/DL (0.2-1.0); BLOOD UREA NITROGEN 11 MG/DL (7-18); CALCIUM LEVEL 8.8 MG/DL (8.5-10.1); CARBON DIOXIDE LEVEL 29 MEQ/L (21-32); CHLORIDE LEVEL 109 MEQ/L (98-107); CREATININE FOR GFR 0.77 MG/DL (0.70-1.30); FREE T4 1.24 NG/DL (0.76-1.46); GLOMERULAR FILTRATION RATE > 60.0 (>56); GLUCOSE, FASTING 129 MG/DL (70-100); POTASSIUM SERUM 4.5 MEQ/L (3.5-5.1); SODIUM LEVEL 141 MEQ/L (136-145); THYROID STIMULATING HORMONE 0.156 uIU/ML (0.358-3.740); TOTAL PROTEIN 6.8 GM/DL (6.4-8.2)
[2019-10-13 09:52] LABS: TOTAL 25(OH) VITAMIN D 94.7 NG/ML (30.0-100.0)
[2019-10-13 09:59] LABS: MALB URINE SIEMENS 36.2 MG/L
[2019-10-13 10:32] LABS: HEMOGLOBIN A1c 5.6 %
== END ==
LOC: M LAB 08:03
PROVIDERS: ATTEND Nurse Practitioner Family
DX: E03.9 Hypothyroidism, unspecified (principal); E11.9 Type 2 diabetes mellitus without complications; E55.9 Vitamin D deficiency, unspecified; Z79.899 Other long term (current) drug therapy

== ENCOUNTER → 2019-12-07 | Outpatient (CLI) | payer MEDICARE, MEDICAID ==
--- NOTE | 2019-12-07 17:54 | REP ---
Clinical: Radiculopathy . Technique: AP, lateral, flexion/extension, bilateral oblique, and open-mouth views. Findings: Alignment and lordosis is maintained. Evidence of prior fixation at C6-7 with stable alignment. There is no evidence for acute fracture / compression injury or subluxation. No significant degenerative changes are appreciated. Oblique views demonstrate patent neural foramen. Open mouth view demonstrates normal C1-C2 articulation and odontoid process. Impression: Prior fixation at C6-7. Otherwise normal age appropriate examination. Electronically Signed by Dipak Griffiths MD 12/07/2019 05:46 P
== END ==
LOC: M RAD 10:33
PROVIDERS: ATTEND Neurological Surgery
DX: M47.22 Other spondylosis with radiculopathy, cervical region (principal); M50.20 Other cervical disc displacement, unspecified cervical region

== ENCOUNTER → 2019-12-20 | Outpatient (CLI) | payer MEDICARE, MEDICAID ==
--- NOTE | 2019-12-21 02:51 | REPPI ---
Clinical: Follow up abnormal lung findings . Comparison: 09/18/2019 . Technique: PA and lateral. Findings: The mediastinum and cardiac silhouette are normal. The lung garcia are clear and without acute consolidation, effusion, or pneumothorax. Previously identified linear atelectasis at the left base has resolved. The skeletal structures are intact and normal. Impression: 1. No acute cardiopulmonary process. 2. Previously identified atelectasis at the left base has resolved. Electronically Signed by Dipak Griffiths MD 12/21/2019 02:42 A
== END ==
LOC: M PLAIMG 11:19
PROVIDERS: ATTEND Internal Medicine Pulmonary Disease
DX: R91.8 Other nonspecific abnormal finding of lung field (principal)

== ENCOUNTER → 2019-12-29 | Outpatient (CLI) | payer MEDICARE, MEDICAID ==
[2019-12-29 09:34] LABS: FREE T4 1.25 NG/DL (0.76-1.46); THYROID STIMULATING HORMONE 1.89 uIU/ML (0.358-3.740)
[2019-12-29 10:11] LABS: TOTAL 25(OH) VITAMIN D 38.7 NG/ML (30.0-100.0)
== END ==
LOC: M LAB 08:02
PROVIDERS: ATTEND Nurse Practitioner Family
DX: E03.9 Hypothyroidism, unspecified (principal); E55.9 Vitamin D deficiency, unspecified; Z79.899 Other long term (current) drug therapy

== ENCOUNTER 2020-04-15 16:17 | Emergency (ER) | payer MEDICARE, MEDICAID ==
[~2020-04-15] VITALS: Ht 182.9 cm; Wt 97.5 kg
[~2020-04-15 16:17] MED LIST changes: -ASPI81TA85 PO; +ASPI81TA86 PO; +PANT40TA29 PO; -PANT40TA3 PO
[2020-04-15 19:09] LABS: VENOUS BASE EXCESS 1.3 (-2.0-2.0); VENOUS HCO3 29.1 MEQ/L (23.0-27.0); VENOUS PARTIAL PRESSURE CO2 61.3 mmHg (38.0-50.0); VENOUS PARTIAL PRESSURE O2 32.1 mmHg (30.0-50.0); VENOUS PH 7.294 UNITS (7.330-7.430)
[2020-04-15 19:10] LABS: BASO # 0.1 10^3/uL (0.0-0.2); BASO % 1.1 % (0.0-1.0); EOS # 0.3 10^3/uL (0.0-0.5); EOS % 5.5 % (0.0-3.0); HEMATOCRIT 34.8 % (42.0-52.0); HEMOGLOBIN 11.7 g/dl (13.5-17.5); LYMPH # 1.5 10^3/uL (1.5-5.0); LYMPH % 31.1 % (24.0-44.0); MEAN CORPUSCULAR HEMOGLOBIN 29.8 pg (27.0-33.0); MEAN CORPUSCULAR HGB CONC 33.6 g/dl (32.0-36.5); MEAN CORPUSCULAR VOLUME 88.8 fl (80.0-96.0); MONO # 0.4 10^3/uL (0.0-0.8); MONO % 8.5 % (0.0-5.0); NEUTROPHILS # 2.5 10^3/uL (1.5-8.5); NEUTROPHILS % 53.4 % (36.0-66.0); PLATELET COUNT, AUTOMATED 183 10^3/uL (150-450); RED BLOOD COUNT 3.92 10^6/uL (4.30-6.10); VENOUS O2 SATURATION 56.1 % (60.0-80.0); VENOUS STANDARD HCO3 24.7 MEQ/L; WHITE BLOOD COUNT 4.7 10^3/uL (4.0-10.0)
[2020-04-15 19:26] LABS: APPEARANCE, URINE CLEAR (CLEAR); BACTERIA, URINE AUTO NEGATIVE (NEGATIVE); BILIRUBIN, URINE AUTO NEGATIVE (NEGATIVE); BLOOD, URINE BLOOD NEGATIVE (NEGATIVE); COLOR, URINE YELLOW (YELLOW); GLUCOSE, URINE (UA) AUTO 3+ mg/dL (NEGATIVE); KETONE, URINE AUTO NEGATIVE (NEGATIVE); LEUKOCYTE ESTERASE, URINE AUTO NEGATIVE (NEGATIVE); MUCUS, URINE SMALL (NEGATIVE); NITRITE, URINE AUTO NEGATIVE (NEGATIVE); PROTEIN, URINE AUTO NEGATIVE (NEGATIVE); RBC, URINE AUTO 2 /HPF (0-3); SPECIFIC GRAVITY URINE AUTO 1.023 (1.002-1.035); SQUAMOUS EPITHELIAL CELL UR AU 0 /HPF (0-6); WBC, URINE AUTO 1 /HPF (0-3)
[2020-04-15 19:30] LABS: BLOOD UREA NITROGEN 14 MG/DL (7-18); CALCIUM LEVEL 8.8 MG/DL (8.5-10.1); CARBON DIOXIDE LEVEL 28 MEQ/L (21-32); CHLORIDE LEVEL 105 MEQ/L (98-107); CREATININE FOR GFR 0.96 MG/DL (0.70-1.30); GLOMERULAR FILTRATION RATE > 60.0 (>56); GLUCOSE, FASTING 229 MG/DL (70-100); POTASSIUM SERUM 3.8 MEQ/L (3.5-5.1); SODIUM LEVEL 138 MEQ/L (136-145)
[2020-04-15] MEDS ORDERED: NS 1,000 ML IV ONE ×2 (19:30→22:15)
[2020-04-15] MEDS ORDERED: HumuLIN R (REGULAR) INSULIN (NovoLIN R) **100U/ML** PER UNIT IV ONE (20:00)
[2020-04-15 21:02] LABS: ALBUMIN 3.9 GM/DL (3.2-5.2); ALT/SGPT 31 U/L (12-78); BILIRUBIN,DIRECT 0.2 MG/DL (0.0-0.2); BILIRUBIN,TOTAL 0.5 MG/DL (0.2-1.0); LIPASE 114 U/L (73-393); TOTAL PROTEIN 7.7 GM/DL (6.4-8.2)
[2020-04-15 21:42] LABS: HEMOGLOBIN A1c 6.8 %
[2020-04-15 22:22] LABS: VENOUS BASE EXCESS -2.2 (-2.0-2.0); VENOUS HCO3 22.8 MEQ/L (23.0-27.0); VENOUS PARTIAL PRESSURE CO2 39.9 mmHg (38.0-50.0); VENOUS PARTIAL PRESSURE O2 59.3 mmHg (30.0-50.0); VENOUS PH 7.375 UNITS (7.330-7.430)
[2020-04-15 22:23] LABS: VENOUS O2 SATURATION 88.7 % (60.0-80.0); VENOUS STANDARD HCO3 22.5 MEQ/L
[2020-04-15 22:52] VITALS: BP 140/82
== END 2020-04-15 22:52 | disposition home or self-care (01) ==
LOC: M ED 16:17
DX: E11.65 Type 2 diabetes mellitus with hyperglycemia (principal); J44.9 Chronic obstructive pulmonary disease, unspecified; K21.9 Gastro-esophageal reflux disease without esophagitis; F17.200 Nicotine dependence, unspecified, uncomplicated; Z79.82 Long term (current) use of aspirin; Z79.84 Long term (current) use of oral hypoglycemic drugs; Z79.899 Other long term (current) drug therapy

== ENCOUNTER → 2020-04-23 | Outpatient (REF) | payer MEDICARE, MEDICAID ==
[2020-04-23 15:23] LABS: HEMOGLOBIN A1c 6.9 %
[2020-04-23 15:34] LABS: ALT/SGPT 37 U/L (12-78); BILIRUBIN,TOTAL 0.7 MG/DL (0.2-1.0); BLOOD UREA NITROGEN 14 MG/DL (7-18); CALCIUM LEVEL 9.1 MG/DL (8.5-10.1); CARBON DIOXIDE LEVEL 28 MEQ/L (21-32); CHLORIDE LEVEL 104 MEQ/L (98-107); CHOLESTEROL LEVEL 103 MG/DL (<200); CHOLESTEROL RISK RATIO 3.551 (<5); CREATININE FOR GFR 1.02 MG/DL (0.70-1.30); FREE T4 1.06 NG/DL (0.76-1.46); GLOMERULAR FILTRATION RATE > 60.0 (>56); GLUCOSE, FASTING 235 MG/DL (70-100); HDL CHOLESTEROL 29 MG/DL (>40); LDL CHOLESTEROL 8 MG/DL (<100); NON-HDL-C 74 MG/DL; POTASSIUM SERUM 4.5 MEQ/L (3.5-5.1); SODIUM LEVEL 136 MEQ/L (136-145); TOTAL PROTEIN 7.5 GM/DL (6.4-8.2); TRIGLYCERIDES LEVEL 331 MG/DL (<150)
[2020-04-23 15:36] LABS: TOTAL 25(OH) VITAMIN D 21.5 NG/ML (30.0-100.0)
[2020-04-23 15:45] LABS: CREATININE, URINE 88.6 MG/DL; MALB URINE SIEMENS 75.9 MG/L; MAU/CREAT RATIO 85.6 MCG/MG (0.0-30.0)
== END ==
LOC: M PLALAB 14:04
PROVIDERS: ATTEND Nurse Practitioner Family
DX: E03.9 Hypothyroidism, unspecified (principal); E11.9 Type 2 diabetes mellitus without complications; E78.5 Hyperlipidemia, unspecified; E55.9 Vitamin D deficiency, unspecified; Z79.899 Other long term (current) drug therapy

== ENCOUNTER → 2020-05-28 | Outpatient (CLI) | payer OTHER, MEDICAID ==
--- NOTE | 2020-05-31 08:51 | REP ---
CHEST XRAY: 05/28/20 CLINICAL: Possible pneumonia. COMPARISON: 12/20/19. FINDINGS: Mediastinum and cardiac silhouette normal. Lung garcia are clear. No consolidation, effusion, or pneumothorax. Skeletal structures are intact. IMPRESSION: 1. No acute cardiopulmonary process or focal consolidation. MTDD
== END ==
LOC: M RAD 10:16
PROVIDERS: ATTEND Internal Medicine Pulmonary Disease
DX: J18.9 Pneumonia, unspecified organism (principal)

== ENCOUNTER → 2020-08-23 | Outpatient (REF) | payer MEDICARE, MEDICAID ==
[2020-08-23 11:13] LABS: ALT/SGPT 36 U/L (12-78); BILIRUBIN,TOTAL 0.7 MG/DL (0.2-1.0); BLOOD UREA NITROGEN 13 MG/DL (7-18); CARBON DIOXIDE LEVEL 26 MEQ/L (21-32); CHLORIDE LEVEL 108 MEQ/L (98-107); GLOMERULAR FILTRATION RATE > 60.0 (>56); GLUCOSE, FASTING 227 MG/DL (70-100); SODIUM LEVEL 140 MEQ/L (136-145); TOTAL PROTEIN 7.2 GM/DL (6.4-8.2)
[2020-08-23 11:30] LABS: TOTAL 25(OH) VITAMIN D 97.8 NG/ML (30.0-100.0)
[2020-08-23 13:12] LABS: HEMOGLOBIN A1c 6.9 %
== END ==
LOC: M SFHCPLAZ 08:14
PROVIDERS: ATTEND Nurse Practitioner Family
DX: E11.65 Type 2 diabetes mellitus with hyperglycemia (principal); E03.9 Hypothyroidism, unspecified; E55.9 Vitamin D deficiency, unspecified
CPT/HCPCS: 36415; 80053; 82306; 83036; 84439; 84443; G0463

== ENCOUNTER → 2020-10-22 | Outpatient (CLI) | payer MEDICARE, MEDICAID ==
--- NOTE | 2020-10-22 10:43 | REP ---
INDICATION: NICOTINE DEPEND COMPARISON: 09/18/2019, 06/08/2016 TECHNIQUE: Axial noncontrast images from the thoracic inlet to the upper abdomen using low-dose lung screening technique (LDCT). FINDINGS: Lung garcia demonstrate minimal chronic stable changes including 8 mm calcified granuloma at the lingula. No acute consolidation, suspicious nodule or mass lesion. No effusion. No pneumothorax. IMPRESSION: Lung-RADS category 2. No suspicious nodule or mass lesion. Management recommendations include annual low-dose CT surveillance. <Electronically signed by Dipak Griffiths > 10/22/20 103
== END ==
LOC: M RAD 10:21
PROVIDERS: ATTEND Internal Medicine Pulmonary Disease
DX: Z12.2 Encounter for screening for malignant neoplasm of respiratory organs (principal); F17.218 Nicotine dependence, cigarettes, with other nicotine-induced disorders

== ENCOUNTER → 2020-11-05 | Outpatient (CLI) | payer MEDICARE, MEDICAID ==
[~2020-11-05] MED LIST changes: +ISOVUE-300 61% 50ML VIAL As Ordered ONE; +LIDOCAINE 1% MDV 20ML VIAL As Ordered ONE; +PROHANCE 279.3MG/ML 5ML VIAL As Ordered ONE
--- NOTE | 2020-11-05 16:41 | REP ---
INDICATION: PAIN LT SHOULDER, R/O RCT AND LABRAL TEAR. COMPARISON: None. TECHNIQUE: Coronal oblique T1, T2 fat sat, sagittal oblique T2 fat sat, axial T2 fat sat, gradient echo. Post arthrogram T1 fat sat and T2 fat sat in multiple planes. FINDINGS: Rotator cuff: No evidence of tear. There is mild supraspinatus tendinopathy/tendinitis. Acromioclavicular joint: There are [id number] hypertrophic degenerative changes of the acromioclavicular joint. Acromion: Type 1 Biceps Tendon: In bicipital groove, no tenosynovitis. Hill Sach's deformity: None. Deltoid muscle: No abnormal signal. Biceps labral complex: There appears to be some degree of fraying of the biceps labral complex. Labrum: No tear. Cartilage: No defects. There is mild chondromalacia at the glenohumeral joint. Bone marrow: No abnormal signal. Joint fluid: No effusion. IMPRESSION: No evidence of rotator cuff tear. No discrete labral tear. There appears to be fraying of the biceps labral complex. There are mild to moderate hypertrophic degenerative changes of the acromioclavicular joint. There is mild supraspinatus tendinopathy/tendinitis. <Electronically signed by Aiden Salazar > 11/05/20 [id number]
--- NOTE | 2020-11-05 18:13 | REP ---
INDICATION: PAIN LT SHOULDER, R/O RCT AND LABRAL TEAR COMPARISON: None. TECHNIQUE: The procedure was performed under the direct supervision of Dr. Salazar. The benefits and risks including but not limited to pain, infection, bleeding and anaphylaxis were explained to the patient and informed consent was obtained. The left glenohumeral joint space was localized using fluoroscopic guidance. The skin was prepped and draped in a sterile fashion. 1% lidocaine was used as a local anesthetic. Using fluoroscopic guidance a 22 gauge spinal needle was inserted and advanced into the joint. 0.5 ml of Isovue-300 was injected to verify placement. 11 ml of a solution containing 20 ml of sterile saline and 0.15 ml of ProHance was injected into the joint. The needle was removed and the patient was taken to MRI for postprocedural imaging. The patient tolerated the procedure well and there were no immediate complications. Less than 6 seconds of fluoro time was utilized for this procedure. FINDINGS: None IMPRESSION: Fluoro guidance for left shoulder MRI arthrogram injection. <Electronically signed by Kenny Sunshine > 11/05/20 [id number] <Electronically signed by Aiden Salazar > 11/05/20 [id number]
== END ==
LOC: M RADPRO 12:14
PROVIDERS: ATTEND Physician Assistant Surgical
DX: M65.812 Other synovitis and tenosynovitis, left shoulder (principal); M19.012 Primary osteoarthritis, left shoulder; M25.512 Pain in left shoulder
CPT/HCPCS: 23350; 73223; 77002; A9576; Q9967

== ENCOUNTER → 2020-12-10 | Outpatient (REF) | payer MEDICARE, MEDICAID ==
[~2020-12-10] MED LIST changes: -ISOVUE-300 61% 50ML VIAL As Ordered ONE; -LIDOCAINE 1% MDV 20ML VIAL As Ordered ONE; -PROHANCE 279.3MG/ML 5ML VIAL As Ordered ONE
[2020-12-10 10:52] LABS: ALT/SGPT 73 U/L (12-78); BILIRUBIN,TOTAL 0.9 MG/DL (0.2-1.0); BLOOD UREA NITROGEN 8 MG/DL (7-18); CALCIUM LEVEL 9.1 MG/DL (8.5-10.1); CARBON DIOXIDE LEVEL 24 MEQ/L (21-32); CHLORIDE LEVEL 106 MEQ/L (98-107); CHOLESTEROL LEVEL 77 MG/DL (<200); CHOLESTEROL RISK RATIO 2.851 (<5); CREATININE FOR GFR 1.33 MG/DL (0.70-1.30); FREE T4 0.55 NG/DL (0.76-1.46); GLOMERULAR FILTRATION RATE 59.4 (>56); GLUCOSE, FASTING 160 MG/DL (70-100); HDL CHOLESTEROL 27 MG/DL (>40); NON-HDL-C 50 MG/DL; POTASSIUM SERUM 4.6 MEQ/L (3.5-5.1); SODIUM LEVEL 137 MEQ/L (136-145); TOTAL 25(OH) VITAMIN D 38.4 NG/ML (30.0-100.0); TOTAL PROTEIN 7.5 GM/DL (6.4-8.2); TRIGLYCERIDES LEVEL 322 MG/DL (<150)
[2020-12-10 10:57] LABS: MAU/CREAT RATIO 832.5 MCG/MG (0.0-30.0)
== END ==
LOC: M PLALAB 08:28
PROVIDERS: ATTEND Nurse Practitioner Family
DX: E11.65 Type 2 diabetes mellitus with hyperglycemia (principal); E03.9 Hypothyroidism, unspecified; E78.5 Hyperlipidemia, unspecified; E55.9 Vitamin D deficiency, unspecified

== ENCOUNTER → 2020-12-18 | Outpatient (CLI) | payer MEDICARE, MEDICAID ==
[~2020-12-18] MED LIST changes: +ASPI81TA26 PO
--- NOTE | 2020-12-18 09:08 | REPPI ---
INDICATION: RUQ PAIN SOB COMPARISON: None. TECHNIQUE: Upright view of the chest with supine and upright views of the abdomen and pelvis. FINDINGS: Frontal upright view of the chest demonstrates no acute cardiopulmonary process or free air below the diaphragm to suspect pneumoperitoneum. Supine and upright views of the abdomen and pelvis demonstrate nonspecific bowel gas pattern without obstruction or perforation. Moderate fecal stasis cannot be excluded. Epidural catheter noted. No organomegaly. Phleboliths identified in the pelvis.. Skeletal structures normal for age. IMPRESSION: Moderate fecal stasis cannot be excluded. Otherwise nonspecific bowel gas pattern. <Electronically signed by Dipak Griffiths > 12/18/20 0947
== END ==
LOC: M PLAIMG 08:40
PROVIDERS: ATTEND Nurse Practitioner Family
DX: I87.8 Other specified disorders of veins (principal); R10.11 Right upper quadrant pain; R06.02 Shortness of breath; E11.9 Type 2 diabetes mellitus without complications
CPT/HCPCS: 36415; 74021; 80053; 82150; 83036; 83690; 84484; 85025; G0463

== ENCOUNTER → 2020-12-18 | Outpatient (REF) | payer MEDICARE, MEDICAID ==
[2020-12-18 10:38] LABS: BASO # 0.1 10^3/uL (0.0-0.2); BASO % 1.3 % (0.0-1.0); EOS # 0.2 10^3/uL (0.0-0.5); EOS % 4.5 % (0.0-3.0); HEMATOCRIT 32.9 % (42.0-52.0); HEMOGLOBIN 10.4 g/dl (13.5-17.5); LYMPH # 1.1 10^3/uL (1.5-5.0); LYMPH % 29.3 % (24.0-44.0); MEAN CORPUSCULAR HEMOGLOBIN 24.9 pg (27.0-33.0); MEAN CORPUSCULAR HGB CONC 31.6 g/dl (32.0-36.5); MEAN CORPUSCULAR VOLUME 78.7 fl (80.0-96.0); MONO # 0.4 10^3/uL (0.0-0.8); MONO % 11.2 % (2.0-8.0); NEUTROPHILS % 53.4 % (36.0-66.0); PLATELET COUNT, AUTOMATED 194 10^3/uL (150-450); RED BLOOD COUNT 4.18 10^6/uL (4.30-6.10); WHITE BLOOD COUNT 3.8 10^3/uL (4.0-10.0)
[2020-12-18 10:57] LABS: HEMOGLOBIN A1c 6.3 %
[2020-12-18 11:17] LABS: ALBUMIN 3.9 GM/DL (3.2-5.2); ALT/SGPT 1313 U/L (12-78); AMYLASE 85 U/L (25-115); BILIRUBIN,TOTAL 0.7 MG/DL (0.2-1.0); BLOOD UREA NITROGEN 9 MG/DL (7-18); CALCIUM LEVEL 9.7 MG/DL (8.5-10.1); CARBON DIOXIDE LEVEL 23 MEQ/L (21-32); CHLORIDE LEVEL 109 MEQ/L (98-107); CREATININE FOR GFR 1.22 MG/DL (0.70-1.30); GLOMERULAR FILTRATION RATE > 60.0 (>56); GLUCOSE, FASTING 149 MG/DL (70-100); LIPASE 151 U/L (73-393); POTASSIUM SERUM 3.7 MEQ/L (3.5-5.1); SODIUM LEVEL 139 MEQ/L (136-145); TOTAL PROTEIN 7.2 GM/DL (6.4-8.2); TROPONIN I < 0.02 NG/ML (< 0.10)
== END ==
LOC: M SFHCPLAZ 08:33
PROVIDERS: ATTEND Nurse Practitioner Family
DX: R10.11 Right upper quadrant pain (principal); E11.9 Type 2 diabetes mellitus without complications; R06.02 Shortness of breath

== ENCOUNTER → 2020-12-23 | Outpatient (CLI) | payer MEDICARE, MEDICAID ==
[~2020-12-23] MED LIST changes: -ASPI81TA26 PO; +ISOVUE-300 61% 50ML VIAL As Ordered ONE; +LIDOCAINE 1% MDV 20ML VIAL As Ordered ONE; +TRIAMCINOLONE ACETONIDE SUSP 40 MG/ML VIAL (J3301) As Ordered ONE
--- NOTE | 2020-12-23 18:46 | REP ---
INDICATION: BICIPITAL TENDONITIS LEFT SHOULDER. COMPARISON: None. TECHNIQUE: The procedure was performed under the direct supervision of Dr. Salazar. The risks and benefits of the procedure were explained to the patient and informed consent was obtained. The left biceps tendon sheath was localized using ultrasound guidance. The skin was prepped and draped in a sterile fashion. 1% lidocaine was used as a local anesthetic. Using ultrasound guidance a 25 gauge needle was inserted and advanced into the tendon sheath. 3 cc of a solution containing 2 cc of 1% lidocaine and 1 cc of Kenalog 40 mg was injected. The needle was then removed. The patient tolerated the procedure well and there were no immediate complications. FINDINGS: None IMPRESSION: Ultrasound guidance for left bicep tendon injection. <Electronically signed by Kenny Sunshine > 12/23/20 1515 <Electronically signed by Aiden Salazar > 12/23/20 [id number]
== END ==
LOC: M RADPRO 11:19
PROVIDERS: ATTEND Physician Assistant Surgical
DX: M75.22 Bicipital tendinitis, left shoulder (principal); D64.9 Anemia, unspecified; R79.89 Other specified abnormal findings of blood chemistry; Z79.899 Other long term (current) drug therapy
CPT/HCPCS: 20550; 36415; 76942; 80053; 81001; 82728; 83550; 85025; 87086; J3301

== ENCOUNTER → 2020-12-23 | Outpatient (REF) | payer MEDICARE, MEDICAID ==
[~2020-12-23] MED LIST changes: -ISOVUE-300 61% 50ML VIAL As Ordered ONE; -LIDOCAINE 1% MDV 20ML VIAL As Ordered ONE; -TRIAMCINOLONE ACETONIDE SUSP 40 MG/ML VIAL (J3301) As Ordered ONE
[2020-12-23 12:33] LABS: APPEARANCE, URINE HAZY (CLEAR); BACTERIA, URINE AUTO NEGATIVE (NEGATIVE); BILIRUBIN, URINE AUTO NEGATIVE (NEGATIVE); BLOOD, URINE BLOOD 1+ (NEGATIVE); COLOR, URINE YELLOW (YELLOW); GLUCOSE, URINE (UA) AUTO 2+ mg/dL (NEGATIVE); KETONE, URINE AUTO NEGATIVE (NEGATIVE); LEUKOCYTE ESTERASE, URINE AUTO NEGATIVE (NEGATIVE); MUCUS, URINE SMALL (NEGATIVE); NITRITE, URINE AUTO NEGATIVE (NEGATIVE); PROTEIN, URINE AUTO 2+ mg/dL (NEGATIVE); RBC, URINE AUTO 1 /HPF (0-3); SPECIFIC GRAVITY URINE AUTO 1.023 (1.002-1.035); SQUAMOUS EPITHELIAL CELL UR AU 0 /HPF (0-6); WBC, URINE AUTO 2 /HPF (0-3)
[2020-12-23 12:35] LABS: EOS # 0.2 10^3/uL (0.0-0.5); EOS % 5.6 % (0.0-3.0); HEMATOCRIT 32.2 % (42.0-52.0); LYMPH # 1.2 10^3/uL (1.5-5.0); LYMPH % 27.9 % (24.0-44.0); MEAN CORPUSCULAR HEMOGLOBIN 24.9 pg (27.0-33.0); MEAN CORPUSCULAR HGB CONC 31.1 g/dl (32.0-36.5); MEAN CORPUSCULAR VOLUME 80.3 fl (80.0-96.0); MONO # 0.4 10^3/uL (0.0-0.8); MONO % 8.5 % (2.0-8.0); NEUTROPHILS # 2.3 10^3/uL (1.5-8.5); NEUTROPHILS % 56.8 % (36.0-66.0); PLATELET COUNT, AUTOMATED 188 10^3/uL (150-450); RED BLOOD COUNT 4.01 10^6/uL (4.30-6.10); WHITE BLOOD COUNT 4.1 10^3/uL (4.0-10.0)
[2020-12-23 13:04] LABS: ALBUMIN 3.7 GM/DL (3.2-5.2); ALT/SGPT 450 U/L (12-78); BILIRUBIN,TOTAL 0.7 MG/DL (0.2-1.0); BLOOD UREA NITROGEN 9 MG/DL (7-18); CALCIUM LEVEL 8.8 MG/DL (8.5-10.1); CARBON DIOXIDE LEVEL 22 MEQ/L (21-32); CHLORIDE LEVEL 111 MEQ/L (98-107); CREATININE FOR GFR 0.99 MG/DL (0.70-1.30); FERRITIN 13 NG/ML (26-388); GLOMERULAR FILTRATION RATE > 60.0 (>56); GLUCOSE, FASTING 126 MG/DL (70-100); IRON (FE) 37 UG/DL (65-175); PERCENT SATURATION 6.9 % (19.7-50.0); POTASSIUM SERUM 3.6 MEQ/L (3.5-5.1); SODIUM LEVEL 140 MEQ/L (136-145); TOTAL IRON BINDING CAPACITY 537 UG/DL (250-450)
== END ==
LOC: M PLALAB 09:51
PROVIDERS: ATTEND Nurse Practitioner Family
DX: D64.9 Anemia, unspecified (principal); R79.89 Other specified abnormal findings of blood chemistry

== ENCOUNTER → 2020-12-30 | Outpatient (CLI) | payer MEDICARE, MEDICAID ==
[~2020-12-30] MED LIST changes: +ASPI81TA26 PO
[2020-12-30 14:00] LABS: ALBUMIN 3.7 GM/DL (3.2-5.2); ALT/SGPT 269 U/L (12-78); BILIRUBIN,DIRECT 0.2 MG/DL (0.0-0.2); BILIRUBIN,TOTAL 0.6 MG/DL (0.2-1.0); TOTAL PROTEIN 6.9 GM/DL (6.4-8.2)
[2020-12-30 14:05] LABS: HEPATITIS B SURFACE ANTIGEN NEGATIVE (NEGATIVE)
[2020-12-30 14:33] LABS: HEPATITIS B CORE ANTIBODY IGM NEGATIVE (NEGATIVE)
[2020-12-30 14:35] LABS: HEPATITIS A ANTIBODY IGM NEGATIVE (NEGATIVE)
[2021-01-01 16:12] LABS: ANCA-ATYPICAL <1:20 titer (Neg:<1:20); ANTI-MITOCHONDRIAL ANTIBODY <20.0 Units (0.0-20.0); ANTINUCLEAR ANTIBODIES DIRECT Negative (Negative); CYTOPLASMIC NEUTROP AB ANCA-C <1:20 titer (Neg:<1:20); LIVER-KIDNEY MICROSOMAL ABY <20.1 Units (0.0-20.0); PERINUCLEAR AB ANCA-P <1:20 titer (Neg:<1:20)
== END ==
LOC: M PLALAB 10:33
PROVIDERS: ATTEND Internal Medicine Gastroenterology
DX: R10.13 Epigastric pain (principal)

== ENCOUNTER → 2021-01-02 | Outpatient (CLI) | payer MEDICARE, MEDICAID ==
--- NOTE | 2021-01-02 11:17 | REP ---
INDICATION: DZ OF GB. COMPARISON: 10/13/2019. TECHNIQUE/RADIOTRACER AND DOSE: FOLLOWING THE INTRAVENOUS ADMINISTRATION OF 6.6 MCI TECHNETIUM 99 M-MEBROFENIN, MULTIPLE IMAGES OF THE RIGHT UPPER QUADRANT ARE PERFORMED FOR 60 MINUTES. NEXT 8 OZ OF ENSURE ENLIVE IS INGESTED AND FURTHER IMAGING IS PERFORMED FOR 65 MINUTES. FINDINGS: THE GALLBLADDER IS VISUALIZED AT 15 MINUTES POST INJECTION. THERE IS BILIARY TO BOWEL TRANSIT AT 25MINUTES POST INJECTION. THERE IS NO SCINTIGRAPHIC EVIDENCE OF CHOLECYSTITIS. GALLBLADDER EJECTION FRACTION IS CALCULATED TO BE 57% WHICH IS NORMAL. IMPRESSION: NORMAL GALLBLADDER EJECTION FRACTION. <Electronically signed by Aiden Salazar > 01/02/21 1116
== END ==
LOC: M RAD 08:38
PROVIDERS: ATTEND Internal Medicine Gastroenterology
DX: K82.8 Other specified diseases of gallbladder (principal)
CPT/HCPCS: 78227; A9537

== ENCOUNTER → 2021-01-09 | Outpatient (CLI) | payer MEDICARE, MEDICAID | LOC: M LABSMTC 09:39 | PROVIDERS: ATTEND Anesthesiology | DX: Z01.812 Encounter for preprocedural laboratory examination (principal); Z20.822 Contact with and (suspected) exposure to COVID-19 ==

== ENCOUNTER 2021-01-14 06:43 | Day surgery (SDC) | payer MEDICARE, MEDICAID ==
[~2021-01-14] VITALS: Ht 182.9 cm; Wt 89.8 kg
[~2021-01-14 06:43] MED LIST changes: +NS 1,000 ML IV ONE
[2021-01-14] MEDS ORDERED: propofoL 200 MG/20 ML VIAL As Ordered ONE (06:55)
[2021-01-14] MEDS ORDERED: fentaNYL 100 MCG/2 ML INJECTION (J3010) As Ordered ONE (06:55)
[2021-01-14] MEDS ORDERED: LIDOCAINE 2% 100MG/5ML SDV (FOR ANES.) As Ordered ONE (06:55)
--- NOTE | 2021-01-14 07:45 | ROOR ---
Patient Name: David Meyers Procedure Date: 01/14/2021 7:31 AM Date of : 1965 Age: 55 Room: [facility] Gender: Male Note Status: Finalized Procedure: Upper GI endoscopy Indications: Iron deficiency anemia Providers: Arnulfo Vasquez MD Referring MD: Dorene Lloyd NP Requesting Provider: Medicines: Monitored Anesthesia Care Complications: No immediate complications. Procedure: Pre-Anesthesia Assessment: - The heart rate, respiratory rate, oxygen saturations, blood pressure, adequacy of pulmonary ventilation, and response to care were monitored throughout the procedure. The Endoscope was introduced through the mouth, and advanced to the second part of duodenum. The upper GI endoscopy was accomplished without difficulty. The patient tolerated the procedure well. Findings: The esophagus was normal. The stomach was normal. The examined duodenum was normal. Impression: - Normal esophagus. - Normal stomach. - Normal examined duodenum. - No specimens collected. Recommendation: - Observe patient's clinical course. Procedure Code(s): --- Professional --- 67265, Esophagogastroduodenoscopy, flexible, transoral; diagnostic, including collection of specimen(s) by brushing or washing, when performed (separate procedure) Diagnosis Code(s): --- Professional --- D50.9, Iron deficiency anemia, unspecified CPT copyright 2019 [employer]. All rights reserved. The codes documented in this report are preliminary and upon minesweeping officer review may be revised to meet current compliance requirements. Arnulfo Vasquez MD Arnulfo Vasquez MD 01/14/2021 7:45:10 AM Electronically signed by Arnulfo Vasquez MD Number of Addenda: 0 Note Initiated On: 01/14/2021 7:31 AM Estimated Blood Loss: Estimated blood loss: none.
--- NOTE | 2021-01-14 08:16 | ROOR ---
Patient Name: David Meyers Procedure Date: 01/14/2021 7:32 AM Date of : 1965 Age: 55 Room: [facility] Gender: Male Note Status: Finalized Procedure: Colonoscopy Indications: Iron deficiency anemia Providers: Arnulfo Vasquez MD Referring MD: Dorene Lloyd NP Requesting Provider: Medicines: Monitored Anesthesia Care Complications: No immediate complications. Procedure: Pre-Anesthesia Assessment: - The heart rate, respiratory rate, oxygen saturations, blood pressure, adequacy of pulmonary ventilation, and response to care were monitored throughout the procedure. The Colonoscope was introduced through the anus and advanced to 10 cm into the ileum. The colonoscopy was performed without difficulty. The patient tolerated the procedure well. The quality of the bowel preparation was good. Findings: The perianal and digital rectal examinations were normal. The ileum, 5 cm from the ileocecal valve contained one flat, non-bleeding polyp. The polyp was 8 mm in diameter. The polyp was removed with a cold snare. Resection and retrieval were complete. Internal hemorrhoids were found during retroflexion. The hemorrhoids were small. The entire examined colon appeared normal on direct and retroflexion views. Impression: - One polyp in the ileum, 5 cm from the ileocecal valve, removed with a cold snare. Resected and retrieved. - Internal hemorrhoids. - The entire examined colon is normal on direct and retroflexion views. Recommendation: - Dulcolax 1-3 tabs or caps PO daily. - Miralax 1 capful (17 grams) in 8 ounces of water PO daily. - Return to my office at the next available appointment. - To discuss todays findings, my office will call you in the next few days to schedule a follow up appointment. - Resume Brilinta tomorrow 01/15/21) at prior dose tomorrow. Procedure Code(s): --- Professional --- 24462, Colonoscopy, flexible; with removal of tumor(s), polyp(s), or other lesion(s) by snare technique Diagnosis Code(s): --- Professional --- D50.9, Iron deficiency anemia, unspecified K64.8, Other hemorrhoids D13.39, Benign neoplasm of other parts of small intestine CPT copyright 2019 [employer] [employer]. All rights reserved. The codes documented in this report are preliminary and upon sports marketing specialist review may be revised to meet current compliance requirements. Arnulfo Vasquez MD Arnulfo Vasquez MD 01/14/2021 8:15:55 AM Electronically signed by Arnulfo Vasquez MD Number of Addenda: 0 Note Initiated On: 01/14/2021 7:32 AM Estimated Blood Loss: Estimated blood loss: none.
[2021-01-14 08:38] VITALS: BP 102/56
== END 2021-01-14 08:42 | disposition home or self-care (01) ==
LOC: M OPP 06:43
PROVIDERS: ATTEND Internal Medicine Gastroenterology
DX: D13.39 Benign neoplasm of other parts of small intestine (principal); K64.8 Other hemorrhoids; D50.9 Iron deficiency anemia, unspecified; R10.84 Generalized abdominal pain; Z79.82 Long term (current) use of aspirin; Z79.899 Other long term (current) drug therapy; F17.210 Nicotine dependence, cigarettes, uncomplicated; Z86.79 Personal history of other diseases of the circulatory system; Z95.5 Presence of coronary angioplasty implant and graft
CPT/HCPCS: 43235; 45385; 88305; J3010

== ENCOUNTER → 2021-01-17 | Outpatient (CLI) | payer MEDICARE, MEDICAID ==
[~2021-01-17] MED LIST changes: -NS 1,000 ML IV ONE
--- NOTE | 2021-01-17 09:31 | REP ---
INDICATION: FOREIGN BODY IN COLON, INITIAL ENCOUNTER COMPARISON: None. TECHNIQUE: Upright view of the chest with supine and upright views of the abdomen and pelvis. FINDINGS: Frontal upright view of the chest demonstrates no acute cardiopulmonary process or free air below the diaphragm to suspect pneumoperitoneum. Supine and upright views of the abdomen and pelvis demonstrate nonspecific bowel gas pattern without obstruction or perforation. No organomegaly. No abnormal calcifications or foreign body identified. Skeletal structures normal for age. Epidural stimulator extends to the lower thoracic level. IMPRESSION: Nonspecific bowel gas pattern. No significant enteric foreign body identified <Electronically signed by Dipak Griffiths > 01/17/21 0927
== END ==
LOC: M RAD 09:10
PROVIDERS: ATTEND Internal Medicine Gastroenterology
DX: Z96.89 Presence of other specified functional implants (principal)

== ENCOUNTER → 2021-01-23 | Outpatient (CLI) | payer MEDICARE, MEDICAID ==
--- NOTE | 2021-01-24 03:47 | REP ---
INDICATION: FOREIGN BODY, LOCATING AGILE PATENCY CAPSULE. COMPARISON: None. TECHNIQUE: Two supine views of the abdomen and pelvis. FINDINGS: Bowel gas pattern demonstrates moderate fecal stasis without obstruction or perforation. Patency capsule is not identified within the small/large bowel. IMPRESSION: Capsule not identified within the small/large bowel. Moderate fecal stasis suggested. <Electronically signed by Dipak Griffiths > 01/24/21 0726
== END ==
LOC: M WUC 13:27
PROVIDERS: ATTEND Internal Medicine Gastroenterology
DX: K92.9 Disease of digestive system, unspecified (principal)

== ENCOUNTER → 2021-02-12 | Outpatient (CLI) | payer MEDICARE, MEDICAID ==
[2021-02-12 13:37] LABS: BASO % 1.1 % (0.0-1.0); EOS # 0.2 10^3/uL (0.0-0.5); EOS % 6.2 % (0.0-3.0); HEMATOCRIT 33.1 % (42.0-52.0); HEMOGLOBIN 10.1 g/dl (13.5-17.5); LYMPH # 1.1 10^3/uL (1.5-5.0); LYMPH % 28.2 % (24.0-44.0); MEAN CORPUSCULAR HEMOGLOBIN 25.9 pg (27.0-33.0); MEAN CORPUSCULAR HGB CONC 30.5 g/dl (32.0-36.5); MEAN CORPUSCULAR VOLUME 84.9 fl (80.0-96.0); MONO # 0.4 10^3/uL (0.0-0.8); MONO % 9.4 % (2.0-8.0); NEUTROPHILS # 2.1 10^3/uL (1.5-8.5); NEUTROPHILS % 54.8 % (36.0-66.0); PLATELET COUNT, AUTOMATED 171 10^3/uL (150-450); WHITE BLOOD COUNT 3.7 10^3/uL (4.0-10.0)
[2021-02-12 13:58] LABS: ALBUMIN 3.6 GM/DL (3.2-5.2); BILIRUBIN,DIRECT 0.2 MG/DL (0.0-0.2); BILIRUBIN,TOTAL 0.6 MG/DL (0.2-1.0); TOTAL PROTEIN 6.7 GM/DL (6.4-8.2)
== END ==
LOC: M PLALAB 09:08
PROVIDERS: ATTEND Internal Medicine Gastroenterology
DX: R94.5 Abnormal results of liver function studies (principal); D50.9 Iron deficiency anemia, unspecified

== ENCOUNTER → 2021-02-20 | Outpatient (CLI) | payer MEDICARE, MEDICAID ==
[2021-02-20 17:18] LABS: ALBUMIN 3.7 GM/DL (3.2-5.2); ALT/SGPT 34 U/L (12-78); BILIRUBIN,TOTAL 0.6 MG/DL (0.2-1.0); BLOOD UREA NITROGEN 9 MG/DL (7-18); CALCIUM LEVEL 8.8 MG/DL (8.5-10.1); CARBON DIOXIDE LEVEL 21 MEQ/L (21-32); CHLORIDE LEVEL 109 MEQ/L (98-107); CHOLESTEROL LEVEL 88 MG/DL (<200); CHOLESTEROL RISK RATIO 2.588 (<5); CREATININE FOR GFR 0.71 MG/DL (0.70-1.30); GLOMERULAR FILTRATION RATE > 60.0 (>56); GLUCOSE, FASTING 211 MG/DL (70-100); HDL CHOLESTEROL 34 MG/DL (>40); LDL CHOLESTEROL 12 MG/DL (<100); NON-HDL-C 54 MG/DL; POTASSIUM SERUM 3.7 MEQ/L (3.5-5.1); SODIUM LEVEL 142 MEQ/L (136-145); THYROID STIMULATING HORMONE 0.473 uIU/ML (0.358-3.740); TRIGLYCERIDES LEVEL 211 MG/DL (<150)
[2021-02-20 17:20] LABS: TOTAL 25(OH) VITAMIN D 33.6 NG/ML (30.0-100.0)
[2021-02-20 17:41] LABS: HEMOGLOBIN A1c 6.2 %
== END ==
LOC: M WUC 14:58
PROVIDERS: ATTEND Nurse Practitioner Family
DX: E11.9 Type 2 diabetes mellitus without complications (principal); E03.9 Hypothyroidism, unspecified; E78.5 Hyperlipidemia, unspecified; E55.9 Vitamin D deficiency, unspecified

== ENCOUNTER → 2021-05-21 | Outpatient (CLI) | payer MEDICARE, MEDICAID ==
[2021-05-21 19:12] LABS: ALBUMIN 3.9 GM/DL (3.2-5.2); ALT/SGPT 31 U/L (12-78); BILIRUBIN,TOTAL 0.9 MG/DL (0.2-1.0); BLOOD UREA NITROGEN 10 MG/DL (7-18); CALCIUM LEVEL 9.5 MG/DL (8.5-10.1); CARBON DIOXIDE LEVEL 28 MEQ/L (21-32); CHLORIDE LEVEL 109 MEQ/L (98-107); CREATININE FOR GFR 0.79 MG/DL (0.70-1.30); FREE T4 1.32 NG/DL (0.76-1.46); GLOMERULAR FILTRATION RATE > 60.0 (>56); GLUCOSE, FASTING 91 MG/DL (70-100); POTASSIUM SERUM 4.4 MEQ/L (3.5-5.1); SODIUM LEVEL 141 MEQ/L (136-145); THYROID STIMULATING HORMONE 0.574 uIU/ML (0.358-3.740); TOTAL 25(OH) VITAMIN D 31.2 NG/ML (30.0-100.0); TOTAL PROTEIN 7.3 GM/DL (6.4-8.2); VITAMIN B12 LEVEL 538 PG/ML (247-911)
[2021-05-21 19:52] LABS: HEMOGLOBIN A1c 6.5 %
== END ==
LOC: M PLALAB 15:07
PROVIDERS: ATTEND Nurse Practitioner Family
DX: E55.9 Vitamin D deficiency, unspecified (principal); E11.9 Type 2 diabetes mellitus without complications; E03.9 Hypothyroidism, unspecified; E53.8 Deficiency of other specified B group vitamins; Z23 Encounter for immunization
CPT/HCPCS: 36415; 80053; 82306; 82607; 83036; 84439; 84443; 90682; G0008; G0463

== ENCOUNTER → 2021-07-29 | Outpatient (CLI) | payer MEDICARE, MEDICAID ==
[2021-07-29 11:30] LABS: BLOOD UREA NITROGEN 13 MG/DL (7-18); CALCIUM LEVEL 9.3 MG/DL (8.5-10.1); CARBON DIOXIDE LEVEL 26 MEQ/L (21-32); CHLORIDE LEVEL 109 MEQ/L (98-107); CREATININE FOR GFR 0.71 MG/DL (0.70-1.30); GLOMERULAR FILTRATION RATE > 60.0 (>56); GLUCOSE, FASTING 147 MG/DL (70-100); POTASSIUM SERUM 3.8 MEQ/L (3.5-5.1); SODIUM LEVEL 141 MEQ/L (136-145)
== END ==
LOC: M PLALAB 08:29
PROVIDERS: ATTEND Physician Assistant
DX: I25.10 Atherosclerotic heart disease of native coronary artery without angina pectoris (principal)

== ENCOUNTER → 2021-08-13 | Outpatient (CLI) | payer MEDICARE, MEDICAID ==
[~2021-08-13] MED LIST changes: +LIDOCAINE 1% MDV 20ML VIAL As Ordered ONE; +methylPREDNISolone SUSP 40MG/ML 1ML VIAL (DEPO MEDROL) As Ordered ONE
--- NOTE | 2021-08-13 17:05 | REP ---
INDICATION: BICIPITAL TENDINITIS, LEFT SHOULDER. COMPARISON: None. TECHNIQUE: The procedure was performed under the direct supervision of Dr. Salazar. The risks and benefits of the procedure were explained to the patient and informed consent was obtained. The left bicep tendon sheath was localized using ultrasound guidance. The skin was prepped and draped in a sterile fashion. 1% lidocaine was used as a local anesthetic. Using ultrasound guidance a 25 gauge needle was inserted and advanced into the tendon sheath. 3 mL of a solution containing 2 mL of 1% lidocaine and 1 mL of Depo-Medrol 40 mg was injected. The needle was then removed. Estimated blood loss: Less than 1 mL. The patient tolerated the procedure well and there were no immediate complications. FINDINGS: None IMPRESSION: Ultrasound-guided left bicep tendon sheath injection. <Electronically signed by Kenny Sunshine > 08/13/21 1601 <Electronically signed by Aiden Salazar > 08/13/21 1391
== END ==
LOC: M IRPRO 10:08
PROVIDERS: ATTEND Physician Assistant
DX: M75.22 Bicipital tendinitis, left shoulder (principal)
CPT/HCPCS: 20550; 76942; J1030

== ENCOUNTER → 2021-08-25 | Outpatient (CLI) | payer MEDICARE, MEDICAID ==
[~2021-08-25] MED LIST changes: -LIDOCAINE 1% MDV 20ML VIAL As Ordered ONE; -methylPREDNISolone SUSP 40MG/ML 1ML VIAL (DEPO MEDROL) As Ordered ONE
[2021-08-25 12:54] LABS: BASO % 0.8 % (0.0-1.0); EOS # 0.2 10^3/uL (0.0-0.5); EOS % 5.2 % (0.0-3.0); HEMATOCRIT 42.9 % (42.0-52.0); HEMOGLOBIN 14.3 g/dl (13.5-17.5); MEAN CORPUSCULAR HEMOGLOBIN 30.6 pg (27.0-33.0); MEAN CORPUSCULAR HGB CONC 33.3 g/dl (32.0-36.5); MEAN CORPUSCULAR VOLUME 91.7 fl (80.0-96.0); MONO # 0.6 10^3/uL (0.0-0.8); NEUTROPHILS # 1.9 10^3/uL (1.5-8.5); NEUTROPHILS % 50.7 % (36.0-66.0); PLATELET COUNT, AUTOMATED 171 10^3/uL (150-450); RED BLOOD COUNT 4.68 10^6/uL (4.30-6.10); WHITE BLOOD COUNT 3.8 10^3/uL (4.0-10.0)
[2021-08-25 13:22] LABS: ALT/SGPT 84 U/L (12-78); BILIRUBIN,DIRECT 0.2 MG/DL (0.0-0.2); BILIRUBIN,TOTAL 0.7 MG/DL (0.2-1.0); BLOOD UREA NITROGEN 9 MG/DL (7-18); CALCIUM LEVEL 8.9 MG/DL (8.5-10.1); CARBON DIOXIDE LEVEL 25 MEQ/L (21-32); CHLORIDE LEVEL 109 MEQ/L (98-107); CREATININE FOR GFR 0.75 MG/DL (0.70-1.30); GLOMERULAR FILTRATION RATE > 60.0 (>56); GLUCOSE, FASTING 135 MG/DL (70-100); POTASSIUM SERUM 3.8 MEQ/L (3.5-5.1); SODIUM LEVEL 142 MEQ/L (136-145); TOTAL PROTEIN 7.4 GM/DL (6.4-8.2)
== END ==
LOC: M WUC 10:07
PROVIDERS: ATTEND Internal Medicine Gastroenterology
DX: R93.3 Abnormal findings on diagnostic imaging of other parts of digestive tract (principal)

== ENCOUNTER → 2021-10-29 | Outpatient (CLI) | payer MEDICARE, MEDICAID ==
[2021-10-29 15:18] LABS: BASO % 0.7 % (0.0-1.0); EOS # 0.4 10^3/uL (0.0-0.5); EOS % 6.6 % (0.0-3.0); HEMATOCRIT 40.7 % (42.0-52.0); HEMOGLOBIN 13.7 g/dl (13.5-17.5); LYMPH # 1.3 10^3/uL (1.5-5.0); LYMPH % 22.1 % (24.0-44.0); MEAN CORPUSCULAR HEMOGLOBIN 30.5 pg (27.0-33.0); MEAN CORPUSCULAR HGB CONC 33.7 g/dl (32.0-36.5); MEAN CORPUSCULAR VOLUME 90.6 fl (80.0-96.0); MONO # 0.5 10^3/uL (0.0-0.8); MONO % 8.6 % (2.0-8.0); NEUTROPHILS # 3.6 10^3/uL (1.5-8.5); NEUTROPHILS % 61.5 % (36.0-66.0); PLATELET COUNT, AUTOMATED 208 10^3/uL (150-450); RED BLOOD COUNT 4.49 10^6/uL (4.30-6.10); WHITE BLOOD COUNT 5.8 10^3/uL (4.0-10.0)
[2021-10-29 15:45] LABS: HEMOGLOBIN A1c 5.9 %
[2021-10-29 15:53] LABS: ALBUMIN 4.1 GM/DL (3.2-5.2); ALT/SGPT 37 U/L (12-78); BILIRUBIN,TOTAL 0.7 MG/DL (0.2-1.0); BLOOD UREA NITROGEN 11 MG/DL (7-18); CALCIUM LEVEL 8.8 MG/DL (8.5-10.1); CARBON DIOXIDE LEVEL 29 MEQ/L (21-32); CHLORIDE LEVEL 111 MEQ/L (98-107); CHOLESTEROL LEVEL 105 MG/DL (<200); CREATININE FOR GFR 0.72 MG/DL (0.70-1.30); FREE T4 1.22 NG/DL (0.76-1.46); GLOMERULAR FILTRATION RATE > 60.0 (>56); GLUCOSE, FASTING 131 MG/DL (70-100); HDL CHOLESTEROL 29 MG/DL (>40); NON-HDL-C 76 MG/DL; POTASSIUM SERUM 3.9 MEQ/L (3.5-5.1); SODIUM LEVEL 143 MEQ/L (136-145); THYROID STIMULATING HORMONE 0.149 uIU/ML (0.358-3.740); TOTAL PROTEIN 7.5 GM/DL (6.4-8.2); TRIGLYCERIDES LEVEL 385 MG/DL (<150)
[2021-10-29 15:55] LABS: CREATININE, URINE 66.9 MG/DL; MAU/CREAT RATIO 76.2 MCG/MG (0.0-30.0)
[2021-10-29 17:32] LABS: PTH INTACT 30.7 PG/ML (18.5-88.0); TOTAL 25(OH) VITAMIN D 20.9 NG/ML (30.0-100.0); VITAMIN B12 LEVEL 332 PG/ML (247-911)
== END ==
LOC: M PLALAB 12:34
PROVIDERS: ATTEND Physician Assistant Medical
DX: E55.9 Vitamin D deficiency, unspecified (principal); E11.9 Type 2 diabetes mellitus without complications; E78.5 Hyperlipidemia, unspecified; E03.9 Hypothyroidism, unspecified; E53.8 Deficiency of other specified B group vitamins; K21.9 Gastro-esophageal reflux disease without esophagitis; Z12.5 Encounter for screening for malignant neoplasm of prostate
CPT/HCPCS: 36415; 80053; 80061; 82043; 82306; 82607; 83036; 83970; 84439; 84443; 85025; G0103

== ENCOUNTER → 2021-11-06 | Outpatient (CLI) | payer MEDICARE, MEDICAID | LOC: M RAD 12:45 | PROVIDERS: ATTEND Nurse Practitioner Adult Health | DX: Z12.2 Encounter for screening for malignant neoplasm of respiratory organs (principal); F17.218 Nicotine dependence, cigarettes, with other nicotine-induced disorders; J43.9 Emphysema, unspecified; R91.8 Other nonspecific abnormal finding of lung field ==

== ENCOUNTER → 2021-11-06 | Outpatient (CLI) | payer MEDICARE, MEDICAID | LOC: M PLAIMG 09:10 | PROVIDERS: ATTEND Orthopaedic Surgery | DX: M75.22 Bicipital tendinitis, left shoulder (principal); M75.112 Incomplete rotator cuff tear or rupture of left shoulder, not specified as traumatic; Z12.2 Encounter for screening for malignant neoplasm of respiratory organs; F17.218 Nicotine dependence, cigarettes, with other nicotine-induced disorders; J43.9 Emphysema, unspecified; R91.8 Other nonspecific abnormal finding of lung field ==

== ENCOUNTER → 2021-12-15 | Outpatient (CLI) | payer MEDICARE, MEDICAID ==
[2021-12-15 14:29] LABS: BASO % 0.8 % (0.0-1.0); EOS # 0.3 10^3/uL (0.0-0.5); EOS % 6.2 % (0.0-3.0); HEMATOCRIT 42.2 % (42.0-52.0); HEMOGLOBIN 14.2 g/dl (13.5-17.5); LYMPH % 20.9 % (24.0-44.0); MEAN CORPUSCULAR HEMOGLOBIN 30.9 pg (27.0-33.0); MEAN CORPUSCULAR HGB CONC 33.6 g/dl (32.0-36.5); MEAN CORPUSCULAR VOLUME 91.9 fl (80.0-96.0); MONO # 0.5 10^3/uL (0.0-0.8); MONO % 10.4 % (2.0-8.0); NEUTROPHILS % 61.3 % (36.0-66.0); PLATELET COUNT, AUTOMATED 186 10^3/uL (150-450); RED BLOOD COUNT 4.59 10^6/uL (4.30-6.10); WHITE BLOOD COUNT 4.8 10^3/uL (4.0-10.0)
[2021-12-15 14:35] LABS: INR 0.89; PROTHROMBIN TIME 12.4 SECONDS (12.7-14.5)
[2021-12-15 14:36] LABS: PARTIAL THROMBOPLASTIN TIME 30.3 SECONDS (25.9-37.0)
[2021-12-15 15:07] LABS: ALBUMIN 4.1 GM/DL (3.2-5.2); ALT/SGPT 35 U/L (12-78); BILIRUBIN,TOTAL 0.9 MG/DL (0.2-1.0); BLOOD UREA NITROGEN 14 MG/DL (7-18); CALCIUM LEVEL 9.6 MG/DL (8.5-10.1); CARBON DIOXIDE LEVEL 24 MEQ/L (21-32); CHLORIDE LEVEL 107 MEQ/L (98-107); FERRITIN 22 NG/ML (26-388); FREE T4 1.19 NG/DL (0.76-1.46); GLOMERULAR FILTRATION RATE > 60.0 (>56); GLUCOSE, FASTING 213 MG/DL (70-100); NT-PRO BNP 28 PG/ML (<125); POTASSIUM SERUM 4.1 MEQ/L (3.5-5.1); SODIUM LEVEL 139 MEQ/L (136-145); THYROID STIMULATING HORMONE 0.103 uIU/ML (0.358-3.740)
== END ==
LOC: M PLALAB 11:16
PROVIDERS: ATTEND Family Medicine
DX: E11.9 Type 2 diabetes mellitus without complications (principal); Z79.84 Long term (current) use of oral hypoglycemic drugs

== ENCOUNTER → 2022-03-02 | Outpatient (CLI) | payer MEDICARE ==
[~2022-03-02] MED LIST changes: +ALBU2.5V10 INH; -ALBU83IN INH; +B-12100010 PO; +CRES40TA PO; +EZET10TA21 PO; +FAMO40TA3 PO; +GLIP-162 PO; +NITR4TASL SL; +VITAMIN D PO; +ZOLO50TA PO
[2022-03-02 17:23] LABS: EOS # 0.1 10^3/uL (0.0-0.5); EOS % 4.8 % (0.0-3.0); HEMATOCRIT 32.7 % (42.0-52.0); HEMOGLOBIN 10.9 g/dl (13.5-17.5); LYMPH # 0.5 10^3/uL (1.5-5.0); LYMPH % 22.1 % (24.0-44.0); MEAN CORPUSCULAR HEMOGLOBIN 31.1 pg (27.0-33.0); MEAN CORPUSCULAR HGB CONC 33.3 g/dl (32.0-36.5); MEAN CORPUSCULAR VOLUME 93.2 fl (80.0-96.0); MONO # 0.3 10^3/uL (0.0-0.8); MONO % 13.9 % (2.0-8.0); NEUTROPHILS # 1.2 10^3/uL (1.5-8.5); NEUTROPHILS % 57.2 % (36.0-66.0); PLATELET COUNT, AUTOMATED 192 10^3/uL (150-450); RED BLOOD COUNT 3.51 10^6/uL (4.30-6.10); WHITE BLOOD COUNT 2.1 10^3/uL (4.0-10.0)
[2022-03-02 17:41] LABS: ALBUMIN 3.7 GM/DL (3.2-5.2); ALT/SGPT 138 U/L (12-78); BILIRUBIN,TOTAL 1.4 MG/DL (0.2-1.0); BLOOD UREA NITROGEN 11 MG/DL (7-18); C REACTIVE PROTEIN QUANTITATIV 0.67 MG/DL (0.00-0.30); CARBON DIOXIDE LEVEL 23 MEQ/L (21-32); CHLORIDE LEVEL 110 MEQ/L (98-107); CREATININE FOR GFR 0.74 MG/DL (0.70-1.30); FREE T4 0.96 NG/DL (0.76-1.46); GLOMERULAR FILTRATION RATE > 60.0 (>56); GLUCOSE, FASTING 126 MG/DL (70-100); MAGNESIUM LEVEL 2.2 MG/DL (1.8-2.4); NT-PRO BNP 75 PG/ML (<125); POTASSIUM SERUM 4.2 MEQ/L (3.5-5.1); SODIUM LEVEL 140 MEQ/L (136-145)
[2022-03-02 17:43] LABS: APPEARANCE, URINE CLEAR (CLEAR); BACTERIA, URINE AUTO NEGATIVE (NEGATIVE); BILIRUBIN, URINE AUTO NEGATIVE (NEGATIVE); BLOOD, URINE BLOOD 2+ (NEGATIVE); COLOR, URINE YELLOW (YELLOW); GLUCOSE, URINE (UA) AUTO 3+ mg/dL (NEGATIVE); KETONE, URINE AUTO NEGATIVE (NEGATIVE); LEUKOCYTE ESTERASE, URINE AUTO NEGATIVE (NEGATIVE); MUCUS, URINE SMALL (NEGATIVE); NITRITE, URINE AUTO NEGATIVE (NEGATIVE); PROTEIN, URINE AUTO NEGATIVE (NEGATIVE); RBC, URINE AUTO 5 /HPF (0-3); SPECIFIC GRAVITY URINE AUTO 1.035 (1.002-1.035); SQUAMOUS EPITHELIAL CELL UR AU 0 /HPF (0-6); WBC, URINE AUTO 1 /HPF (0-3)
[2022-03-02 18:53] LABS: BILIRUBIN,DIRECT 0.4 MG/DL (0.0-0.2); LIPASE 149 U/L (73-393)
[2022-03-02 18:59] LABS: ERYTHROCYTE SEDIMENTATION RATE 52 mm/hr (0-20)
== END ==
LOC: M PLALAB 14:49
PROVIDERS: ATTEND Physician Assistant
DX: R35.0 Frequency of micturition (principal); R17 Unspecified jaundice; R53.83 Other fatigue; M79.89 Other specified soft tissue disorders; I87.2 Venous insufficiency (chronic) (peripheral); E03.9 Hypothyroidism, unspecified; R31.9 Hematuria, unspecified

== ENCOUNTER → 2022-03-04 | Outpatient (CLI) | payer MEDICARE | LOC: M CARPUL 07:37 | PROVIDERS: ATTEND Physician Assistant | DX: I50.811 Acute right heart failure (principal); K76.1 Chronic passive congestion of liver; D50.9 Iron deficiency anemia, unspecified; R16.1 Splenomegaly, not elsewhere classified ==

== ENCOUNTER 2022-03-06 11:13 | Outpatient (CLI) | payer MEDICARE ==
[~2022-03-06] VITALS: Ht 182.9 cm; Wt 86.0 kg
[~2022-03-06 11:13] MED LIST changes: +ALBUTEROL SULFATE 2.5 MG/0.5 ML INH NEB SOLN INH PRN; -B-12100010 PO; -CRES40TA PO; +EPINEPHrine INJ 1 MG/ML 1ML AMP IM PRN; -EZET10TA21 PO; -FAMO40TA3 PO; -GLIP-162 PO; -NITR4TASL SL; -VITAMIN D PO; -ZOLO50TA PO; +diphenhydrAMINE 50MG/ML VIAL (J1200) IV PRN; +methylPREDNISolone 125MG 2ML VIAL IV PRN
[2022-03-06 11:30] VITALS: BP 104/69
[2022-03-06] MEDS ORDERED: IRON SUCROSE 25 MG in NS 25 ML IV ONE (11:30)
[2022-03-06] MEDS ORDERED: IRON SUCROSE IV ONE (11:30)
[2022-03-06] MEDS ORDERED: NS IV ONE (11:30)
[2022-03-06] MEDS ORDERED: NS 1,000 ML IV SCH (11:30)
[2022-03-06] MEDS ORDERED: CRES40TA PO (12:00)
[2022-03-06] MEDS ORDERED: EZET10TA21 PO (12:00)
[2022-03-06] MEDS ORDERED: VITAMIN D PO (12:01)
[2022-03-06] MEDS ORDERED: FAMO40TA3 PO (12:02)
[2022-03-06] MEDS ORDERED: ZOLO50TA PO (12:05)
[2022-03-06] MEDS ORDERED: B-12100010 PO (12:05)
[2022-03-06] MEDS ORDERED: GLIP-162 PO ×2 (12:05)
[2022-03-06] MEDS ORDERED: NITR4TASL SL (12:05)
[2022-03-06 12:19] VITALS: BP 113/64
[2022-03-06 13:00] VITALS: BP 108/55
[2022-03-06 14:00] VITALS: BP 105/59
[2022-03-06 14:44] VITALS: BP 111/56
[2022-03-06 15:00] VITALS: BP 99/62
== END 2022-03-06 15:00 | disposition home or self-care (01) ==
LOC: M INFU 11:13
PROVIDERS: ATTEND Physician Assistant
DX: F50.9 Eating disorder, unspecified (principal)
CPT/HCPCS: 96365; 96366; J1756

== ENCOUNTER → 2022-03-13 | Outpatient (CLI) | payer MEDICARE ==
[~2022-03-13] MED LIST changes: -ALBUTEROL SULFATE 2.5 MG/0.5 ML INH NEB SOLN INH PRN; +B-12100010 PO; +CRES40TA PO; -EPINEPHrine INJ 1 MG/ML 1ML AMP IM PRN; +EZET10TA21 PO; +FAMO40TA3 PO; +GLIP-162 PO; +NITR4TASL SL; +VITAMIN D PO; +ZOLO50TA PO; -diphenhydrAMINE 50MG/ML VIAL (J1200) IV PRN; -methylPREDNISolone 125MG 2ML VIAL IV PRN
[2022-03-13 11:08] LABS: C REACTIVE PROTEIN QUANTITATIV < 0.30 MG/DL (0.00-0.30); FERRITIN 175 NG/ML (26-388); LDH LACTATE DEHYDROGENASE 272 U/L (87-241); TOTAL PROTEIN 6.7 GM/DL (6.4-8.2)
[2022-03-13 11:15] LABS: ERYTHROCYTE SEDIMENTATION RATE 33 mm/hr (0-20)
[2022-03-13 11:39] LABS: CORTISOL AM 16.2 UG/DL (4.3-22.4)
[2022-03-13 11:41] LABS: HEPATITIS B SURFACE ANTIBODY NEGATIVE (POSITIVE)
[2022-03-13 12:17] LABS: HEPATITIS C VIRUS ABY INDEX < 0.0 INDEX (<0.8)
[2022-03-13 12:18] LABS: HEPATITIS B CORE ANTIBODY IGM NEGATIVE (NEGATIVE); HIV 1&2 SCREEN CENTAUR NEGATIVE (NEGATIVE)
[2022-03-14 15:07] LABS: FREE KAPPA LIGHT CHAINS SERUM 23.6 mg/L (3.3-19.4); FREE LAMBDA LIGHT CHAINS SERUM 16.6 mg/L (5.7-26.3); HEPATITIS B CORE ANTIBODY IGG Negative (Negative); KAPPA/LAMBDA RATIO SERUM 1.42 (0.26-1.65)
== END ==
LOC: M PLALAB 07:34
PROVIDERS: ATTEND Internal Medicine Hematology
DX: R50.9 Fever, unspecified (principal)

== ENCOUNTER → 2022-03-16 | Outpatient (CLI) | payer MEDICARE | LOC: M PLALAB 07:15 | PROVIDERS: ATTEND Internal Medicine Hematology | DX: R50.9 Fever, unspecified (principal); D72.819 Decreased white blood cell count, unspecified; D64.9 Anemia, unspecified ==

== ENCOUNTER → 2022-03-19 | Outpatient (REF) | payer MEDICARE, MEDICAID ==
[2022-03-19 17:59] LABS: APPEARANCE, URINE CLEAR (CLEAR); BACTERIA, URINE AUTO NEGATIVE (NEGATIVE); BILIRUBIN, URINE AUTO NEGATIVE (NEGATIVE); BLOOD, URINE BLOOD 2+ (NEGATIVE); CALCIUM OXALATE CRYSTALS SMALL; COLOR, URINE YELLOW (YELLOW); GLUCOSE, URINE (UA) AUTO 3+ mg/dL (NEGATIVE); KETONE, URINE AUTO TRACE mg/dL (NEGATIVE); LEUKOCYTE ESTERASE, URINE AUTO NEGATIVE (NEGATIVE); NITRITE, URINE AUTO NEGATIVE (NEGATIVE); PROTEIN, URINE AUTO NEGATIVE (NEGATIVE); RBC, URINE AUTO 17 /HPF (0-3); SPECIFIC GRAVITY URINE AUTO 1.032 (1.002-1.035); SQUAMOUS EPITHELIAL CELL UR AU 0 /HPF (0-6); WBC, URINE AUTO 2 /HPF (0-3)
== END ==
LOC: M SMT 16:40
PROVIDERS: ATTEND Urology
DX: R31.29 Other microscopic hematuria (principal)

== ENCOUNTER → 2022-03-23 | Outpatient (CLI) | payer MEDICARE, MEDICAID ==
[2022-03-23 11:15] LABS: BASO % 0.6 % (0.0-1.0); EOS # 0.1 10^3/uL (0.0-0.5); EOS % 2.5 % (0.0-3.0); HEMATOCRIT 35.6 % (42.0-52.0); HEMOGLOBIN 11.5 g/dl (13.5-17.5); LYMPH # 0.7 10^3/uL (1.5-5.0); MEAN CORPUSCULAR HEMOGLOBIN 30.7 pg (27.0-33.0); MEAN CORPUSCULAR HGB CONC 32.3 g/dl (32.0-36.5); MEAN CORPUSCULAR VOLUME 95.2 fl (80.0-96.0); MONO # 0.4 10^3/uL (0.0-0.8); MONO % 9.8 % (2.0-8.0); NEUTROPHILS # 2.4 10^3/uL (1.5-8.5); NEUTROPHILS % 67.5 % (36.0-66.0); PLATELET COUNT, AUTOMATED 177 10^3/uL (150-450); RED BLOOD COUNT 3.74 10^6/uL (4.30-6.10); WHITE BLOOD COUNT 3.6 10^3/uL (4.0-10.0)
[2022-03-23 12:07] LABS: ALBUMIN 3.5 GM/DL (3.2-5.2); ALT/SGPT 67 U/L (12-78); BLOOD UREA NITROGEN 11 MG/DL (7-18); CALCIUM LEVEL 9.1 MG/DL (8.5-10.1); CARBON DIOXIDE LEVEL 25 MEQ/L (21-32); CHLORIDE LEVEL 107 MEQ/L (98-107); CREATININE FOR GFR 0.72 MG/DL (0.70-1.30); GLOMERULAR FILTRATION RATE > 60.0 (>56); GLUCOSE, FASTING 103 MG/DL (70-100); LDH LACTATE DEHYDROGENASE 188 U/L (87-241); POTASSIUM SERUM 3.9 MEQ/L (3.5-5.1); SODIUM LEVEL 138 MEQ/L (136-145); TOTAL PROTEIN 6.6 GM/DL (6.4-8.2)
[2022-03-24 04:06] LABS: IMMUNOGLOBULIN G 816 MG/DL (681-1648)
[2022-03-24 11:10] LABS: ANTINUCLEAR ANTIBODIES DIRECT Negative (Negative); HAPTOGLOBIN 75 mg/dL (29-370)
== END ==
LOC: M PLALAB 07:18
PROVIDERS: ATTEND Internal Medicine Hematology
DX: R50.9 Fever, unspecified (principal)

== ENCOUNTER → 2022-03-27 | Outpatient (REF) | payer MEDICARE, MEDICAID | LOC: M SMT 16:48 | PROVIDERS: ATTEND Urology | DX: R31.29 Other microscopic hematuria (principal) ==

== ENCOUNTER → 2022-04-13 | Outpatient (CLI) | payer MEDICARE, MEDICAID | LOC: M PLARAD 12:00 | PROVIDERS: ATTEND Internal Medicine Hematology | DX: R50.9 Fever, unspecified (principal); D59.10 Autoimmune hemolytic anemia, unspecified; J84.10 Pulmonary fibrosis, unspecified; R16.1 Splenomegaly, not elsewhere classified; Z95.5 Presence of coronary angioplasty implant and graft; R63.4 Abnormal weight loss; F17.210 Nicotine dependence, cigarettes, uncomplicated; J44.9 Chronic obstructive pulmonary disease, unspecified | CPT/HCPCS: 78815; A9552 ==

== ENCOUNTER → 2022-05-15 | Outpatient (CLI) | payer MEDICARE, MEDICAID ==
[2022-05-15 14:14] LABS: BASO % 0.5 % (0.0-1.0); EOS # 0.1 10^3/uL (0.0-0.5); EOS % 1.6 % (0.0-3.0); HEMATOCRIT 43.8 % (42.0-52.0); HEMOGLOBIN 14.1 g/dl (13.5-17.5); LYMPH # 0.8 10^3/uL (1.5-5.0); LYMPH % 14.2 % (24.0-44.0); MEAN CORPUSCULAR HEMOGLOBIN 30.7 pg (27.0-33.0); MEAN CORPUSCULAR HGB CONC 32.2 g/dl (32.0-36.5); MEAN CORPUSCULAR VOLUME 95.2 fl (80.0-96.0); MONO # 0.4 10^3/uL (0.0-0.8); MONO % 6.6 % (2.0-8.0); NEUTROPHILS # 4.3 10^3/uL (1.5-8.5); NEUTROPHILS % 76.6 % (36.0-66.0); PLATELET COUNT, AUTOMATED 207 10^3/uL (150-450); WHITE BLOOD COUNT 5.6 10^3/uL (4.0-10.0)
[2022-05-18 17:08] LABS: AFP TUMOR TOTAL 2.5 ng/mL (0.0-8.4); ANA (HEP2) Negative (.); ANTI-MITOCHONDRIAL ANTIBODY <20.0 Units (0.0-20.0); HEPATITIS A IgG TOTAL Negative (Negative)
== END ==
LOC: M PLALAB 09:54
PROVIDERS: ATTEND Physician Assistant Medical
DX: R79.89 Other specified abnormal findings of blood chemistry (principal); R53.83 Other fatigue

== ENCOUNTER → 2022-05-19 | Outpatient (CLI) | payer MEDICARE, MEDICAID ==
[~2022-05-19] MED LIST changes: +E-Z-PAQUE 96% w/w SUSP 176GM BTL As Ordered ONE
== END ==
LOC: M RAD 07:11
PROVIDERS: ATTEND Physician Assistant Medical
DX: K59.00 Constipation, unspecified (principal)

== ENCOUNTER → 2022-05-28 | Outpatient (CLI) | payer MEDICARE, MEDICAID ==
[~2022-05-28] MED LIST changes: +COLA100C5 PO; -E-Z-PAQUE 96% w/w SUSP 176GM BTL As Ordered ONE; +PRED10TA2; +SENN1TAB49; +TRAM50TA2
[2022-05-28 12:02] LABS: ALT/SGPT 38 U/L (12-78); BLOOD UREA NITROGEN 10 MG/DL (7-18); CALCIUM LEVEL 9.1 MG/DL (8.5-10.1); CARBON DIOXIDE LEVEL 27 MEQ/L (21-32); CHLORIDE LEVEL 107 MEQ/L (98-107); CREATININE FOR GFR 0.65 MG/DL (0.70-1.30); FREE T4 1.23 NG/DL (0.76-1.46); GLOMERULAR FILTRATION RATE > 60.0 (>56); GLUCOSE, FASTING 138 MG/DL (70-100); LDH LACTATE DEHYDROGENASE 177 U/L (87-241); POTASSIUM SERUM 3.6 MEQ/L (3.5-5.1); SODIUM LEVEL 139 MEQ/L (136-145); THYROID STIMULATING HORMONE 0.829 uIU/ML (0.358-3.740)
[2022-05-29 11:28] LABS: ALBUMIN 4.26 GM/DL (3.29-5.55); ALBUMIN % 60.8 % (55.8-66.1); ALPHA-1-GLOBULIN % 4.8 % (2.9-4.9); ALPHA-1-GLOBULINS 0.34 GM/DL (0.17-0.41); ALPHA-2-GLOBULINS 0.62 GM/DL (0.42-0.99); ALPHA-2-GLOBULINS % 8.8 % (7.1-11.8); BETA-1-GLOBULINS 0.52 GM/DL (0.28-0.60); BETA-1-GLOBULINS % 7.4 % (4.7-7.2); BETA-2-GLOBULINS 0.44 GM/DL (0.19-0.55); BETA-2-GLOBULINS % 6.3 % (3.2-6.5); GAMMA GLOBULIN % 11.9 % (11.1-18.8); GAMMA GLOBULINS 0.83 GM/DL (0.65-1.58)
== END ==
LOC: M PLALAB 10:03
PROVIDERS: ATTEND Physician Assistant Medical
DX: K59.00 Constipation, unspecified (principal); R50.9 Fever, unspecified; R31.29 Other microscopic hematuria; R63.4 Abnormal weight loss; R53.83 Other fatigue; E03.9 Hypothyroidism, unspecified; E78.5 Hyperlipidemia, unspecified; E11.9 Type 2 diabetes mellitus without complications; Z79.899 Other long term (current) drug therapy; F17.209 Nicotine dependence, unspecified, with unspecified nicotine-induced disorders; R79.89 Other specified abnormal findings of blood chemistry; I25.759 Atherosclerosis of native coronary artery of transplanted heart with unspecified angina pectoris

== ENCOUNTER → 2022-06-16 | Outpatient (CLI) | payer MEDICARE, MEDICAID ==
[~2022-06-16] MED LIST changes: +LIDOCAINE 1% MDV 20ML VIAL As Ordered ONE
[2022-06-16 12:38] LABS: BASO % 0.4 % (0.0-1.0); EOS # 0.1 10^3/uL (0.0-0.5); EOS % 1.5 % (0.0-3.0); HEMATOCRIT 39.3 % (42.0-52.0); HEMOGLOBIN 13.2 g/dl (13.5-17.5); LYMPH # 0.7 10^3/uL (1.5-5.0); LYMPH % 12.4 % (24.0-44.0); MEAN CORPUSCULAR HEMOGLOBIN 30.6 pg (27.0-33.0); MEAN CORPUSCULAR HGB CONC 33.6 g/dl (32.0-36.5); MONO # 0.4 10^3/uL (0.0-0.8); NEUTROPHILS # 4.1 10^3/uL (1.5-8.5); NEUTROPHILS % 77.9 % (36.0-66.0); PLATELET COUNT, AUTOMATED 199 10^3/uL (150-450); RED BLOOD COUNT 4.32 10^6/uL (4.30-6.10); WHITE BLOOD COUNT 5.3 10^3/uL (4.0-10.0)
[2022-06-16 13:05] VITALS: BP 124/75
== END ==
LOC: M IRPRO 12:03
PROVIDERS: ATTEND Internal Medicine Medical Oncology
DX: R16.1 Splenomegaly, not elsewhere classified (principal)

== ENCOUNTER → 2022-07-14 | Outpatient (CLI) | payer MEDICARE, MEDICAID ==
[~2022-07-14] MED LIST changes: -LIDOCAINE 1% MDV 20ML VIAL As Ordered ONE
[2022-07-14 19:03] LABS: CARBON DIOXIDE LEVEL 26 MMOL/L (20-31); CHLORIDE LEVEL 106 MMOL/L (98-107); SODIUM LEVEL 140 MMOL/L (136-145)
[2022-07-14 19:07] LABS: BLOOD UREA NITROGEN 11 MG/DL (9-23)
[2022-07-14 19:09] LABS: ALKALINE PHOSPHATASE 87 U/L (46-116); CALCIUM LEVEL 8.8 MG/DL (8.5-10.1); FREE T4 1.15 NG/DL (0.89-1.76); GLUCOSE, FASTING 95 MG/DL (60-100); THYROID STIMULATING HORMONE 1.833 uIU/ML (0.55-4.78)
[2022-07-14 19:10] LABS: ALT/SGPT 31 U/L (7.0-40); AST/SGOT 22 U/L (<34); CPK CREATINE PHOSPHOKINASE 67 U/L (46-171)
[2022-07-14 19:11] LABS: BILIRUBIN,TOTAL 0.9 MG/DL (0.3-1.2); CREATININE FOR GFR 0.68 MG/DL (0.70-1.30); GLOMERULAR FILTRATION RATE > 60.0 (>56); RHEUMATOID FACTOR QUANT 25.4 IU/ML (<14); TOTAL PROTEIN 6.8 G/DL (5.7-8.2)
[2022-07-14 19:40] LABS: HEMOGLOBIN A1c 5.9 % (4.0-6.0)
[2022-07-17 00:10] LABS: ANTINUCLEAR ANTIBODIES DIRECT Negative (Negative); CYCLIC CITRULLINATED PEPTIDE > 250 units (0-19)
== END ==
LOC: M PLALAB 15:36
PROVIDERS: ATTEND Internal Medicine Hematology
DX: R76.8 Other specified abnormal immunological findings in serum (principal); R10.11 Right upper quadrant pain; R16.1 Splenomegaly, not elsewhere classified; D50.9 Iron deficiency anemia, unspecified; E03.9 Hypothyroidism, unspecified; E11.9 Type 2 diabetes mellitus without complications

== ENCOUNTER → 2022-07-16 | Outpatient (CLI) | payer MEDICARE, MEDICAID | LOC: M RAD 07:23 | PROVIDERS: ATTEND Internal Medicine Hematology | DX: R16.1 Splenomegaly, not elsewhere classified (principal) ==

== ENCOUNTER → 2022-08-31 | Outpatient (CLI) | payer MEDICARE, MEDICAID ==
[2022-08-31 17:07] LABS: EOS # 0.3 10^3/uL (0.0-0.5); EOS % 6.2 % (0.0-3.0); HEMATOCRIT 38.3 % (42.0-52.0); HEMOGLOBIN 12.2 g/dl (13.5-17.5); LYMPH # 1.2 10^3/uL (1.5-5.0); MEAN CORPUSCULAR HEMOGLOBIN 26.9 pg (27.0-33.0); MEAN CORPUSCULAR HGB CONC 31.9 g/dl (32.0-36.5); MEAN CORPUSCULAR VOLUME 84.5 fl (80.0-96.0); MONO # 0.5 10^3/uL (0.0-0.8); MONO % 11.6 % (2.0-8.0); NEUTROPHILS # 2.2 10^3/uL (1.5-8.5); PLATELET COUNT, AUTOMATED 210 10^3/uL (150-450); RED BLOOD COUNT 4.53 10^6/uL (4.30-6.10); WHITE BLOOD COUNT 4.2 10^3/uL (4.0-10.0)
[2022-08-31 17:35] LABS: ALBUMIN 4.2 G/DL (3.2-5.2); ALKALINE PHOSPHATASE 95 U/L (46-116); ALT/SGPT 54 U/L (7.0-40); AST/SGOT 21 U/L (<34); BILIRUBIN,TOTAL 0.9 MG/DL (0.3-1.2); BLOOD UREA NITROGEN 11 MG/DL (9-23); CARBON DIOXIDE LEVEL 27 MMOL/L (20-31); CHLORIDE LEVEL 104 MMOL/L (98-107); CHOLESTEROL LEVEL 114 MG/DL (<200); CREATININE FOR GFR 0.72 MG/DL (0.70-1.30); GLOMERULAR FILTRATION RATE > 60.0 (>56); GLUCOSE, FASTING 137 MG/DL (60-100); HDL CHOLESTEROL 35.6 MG/DL (>40); IRON (FE) 36 UG/DL (65-175); LDL CHOLESTEROL 3.6 MG/DL (<100); NON-HDL-C 78 MG/DL; SODIUM LEVEL 138 MMOL/L (136-145); TOTAL PROTEIN 7.4 G/DL (5.7-8.2); TRIGLYCERIDES LEVEL 374 MG/DL (<150)
[2022-08-31 17:37] LABS: FERRITIN 8.3 NG/ML (10.5-307.3); MAU/CREAT RATIO 26.4 MCG/MG (0.0-30.0)
[2022-08-31 17:42] LABS: HEMOGLOBIN A1c 5.8 % (4.0-6.0)
== END ==
LOC: M PLALAB 16:14
PROVIDERS: ATTEND Physician Assistant Medical
DX: E11.9 Type 2 diabetes mellitus without complications (principal); D50.9 Iron deficiency anemia, unspecified; R79.89 Other specified abnormal findings of blood chemistry; E78.5 Hyperlipidemia, unspecified

== ENCOUNTER 2022-09-10 11:00 | Outpatient (CLI) | payer MEDICARE, MEDICAID ==
[~2022-09-10] VITALS: Ht 177.8 cm; Wt 89.0 kg
[~2022-09-10 11:00] MED LIST changes: +ALBUTEROL SULFATE 2.5MG/0.5ML INH NEB SOLN INH PRN; +EPINEPHrine INJ 1 MG/ML 1ML AMP IM PRN; +IRON SUCROSE IV ONE; +NS 1,000 ML IV ONE; +NS IV ONE; +diphenhydrAMINE 50MG/ML VIAL IV PRN; +methylPREDNISolone 125MG 2ML VIAL IV PRN
[2022-09-10 11:07] VITALS: BP 117/55
[2022-09-10 13:00] VITALS: BP 107/61
[2022-09-10 14:00] VITALS: BP 106/57
== END 2022-09-10 14:15 | disposition home or self-care (01) ==
LOC: M INFU 11:00
PROVIDERS: ATTEND Physician Assistant Medical
DX: D50.9 Iron deficiency anemia, unspecified (principal)
CPT/HCPCS: 96365; 96366; J1756

== ENCOUNTER → 2022-10-02 | Outpatient (REF) | payer MEDICARE, MEDICAID ==
[~2022-10-02] MED LIST changes: -ALBUTEROL SULFATE 2.5MG/0.5ML INH NEB SOLN INH PRN; -EPINEPHrine INJ 1 MG/ML 1ML AMP IM PRN; -IRON SUCROSE IV ONE; -NS 1,000 ML IV ONE; -NS IV ONE; -diphenhydrAMINE 50MG/ML VIAL IV PRN; -methylPREDNISolone 125MG 2ML VIAL IV PRN
[2022-10-02 12:14] LABS: C REACTIVE PROTEIN QUANTITATIV < 0.40 MG/DL (<1.0); MAGNESIUM LEVEL 1.9 MG/DL (1.8-2.4); PHOSPHORUS LEVEL 3.7 MG/DL (2.5-4.9)
== END ==
LOC: M SFHCRHEU 10:28
PROVIDERS: ATTEND Internal Medicine
DX: M25.50 Pain in unspecified joint (principal); M62.81 Muscle weakness (generalized); M79.10 Myalgia, unspecified site

== ENCOUNTER → 2022-10-05 | Outpatient (CLI) | payer MEDICARE, MEDICAID | LOC: M RAD 09:38 | PROVIDERS: ATTEND Internal Medicine | DX: M25.50 Pain in unspecified joint (principal); M54.9 Dorsalgia, unspecified; R93.7 Abnormal findings on diagnostic imaging of other parts of musculoskeletal system; R94.5 Abnormal results of liver function studies; D50.9 Iron deficiency anemia, unspecified ==

== ENCOUNTER → 2022-10-05 | Outpatient (CLI) | payer MEDICARE, MEDICAID ==
[2022-10-05 11:07] LABS: BASO % 0.8 % (0.0-1.0); EOS # 0.3 10^3/uL (0.0-0.5); EOS % 7.5 % (0.0-3.0); HEMATOCRIT 36.2 % (42.0-52.0); HEMOGLOBIN 11.5 g/dl (13.5-17.5); LYMPH % 27.7 % (24.0-44.0); MEAN CORPUSCULAR HEMOGLOBIN 26.6 pg (27.0-33.0); MEAN CORPUSCULAR HGB CONC 31.8 g/dl (32.0-36.5); MEAN CORPUSCULAR VOLUME 83.8 fl (80.0-96.0); MONO # 0.4 10^3/uL (0.0-0.8); MONO % 10.4 % (2.0-8.0); NEUTROPHILS % 53.1 % (36.0-66.0); PLATELET COUNT, AUTOMATED 176 10^3/uL (150-450); RED BLOOD COUNT 4.32 10^6/uL (4.30-6.10); WHITE BLOOD COUNT 3.8 10^3/uL (4.0-10.0)
[2022-10-05 11:29] LABS: BILIRUBIN,DIRECT 0.3 MG/DL (<0.4); PERCENT SATURATION 13.4 % (19.7-50.0); TOTAL PROTEIN 6.7 G/DL (5.7-8.2)
== END ==
LOC: M LAB 09:36
PROVIDERS: ATTEND Internal Medicine Gastroenterology
DX: R94.5 Abnormal results of liver function studies (principal); D50.9 Iron deficiency anemia, unspecified

== ENCOUNTER → 2022-10-20 | Outpatient (CLI) | payer MEDICARE, MEDICAID ==
[~2022-10-20] MED LIST changes: +SIMV-254 PO; -ZOCO40TA PO
== END ==
LOC: M PLAIMG 10:01
PROVIDERS: ATTEND Physician Assistant Medical
DX: M54.16 Radiculopathy, lumbar region (principal)

== ENCOUNTER → 2022-10-30 | Outpatient (CLI) | payer MEDICARE, MEDICAID ==
[~2022-10-30] MED LIST changes: +ALBU90AE IH; -SENN1TAB49; +SENN1TAB49 PO; -STIO1AER IN; +VITA100093 PO
== END ==
LOC: M LABSMTC 09:09
PROVIDERS: ATTEND Anesthesiology
DX: Z01.812 Encounter for preprocedural laboratory examination (principal)

== ENCOUNTER 2022-11-04 07:01 | Day surgery (SDC) | payer MEDICARE, MEDICAID ==
[~2022-11-04] VITALS: Ht 198.1 cm; Wt 85.3 kg
[~2022-11-04 07:01] MED LIST changes: +NS 1,000 ML IV ONE
[2022-11-04] MEDS ORDERED: fentaNYL 100 MCG/2 ML INJECTION As Ordered ONE (07:24)
[2022-11-04] MEDS ORDERED: propofoL 200 MG/20 ML VIAL As Ordered ONE (07:24)
[2022-11-04] MEDS ORDERED: LIDOCAINE 2% 100MG/5ML SDV (FOR ANES.) As Ordered ONE (07:24)
[2022-11-04 09:20] VITALS: BP 112/60
== END 2022-11-04 09:26 | disposition home or self-care (01) ==
LOC: M OPP 07:01
PROVIDERS: ATTEND Internal Medicine Gastroenterology
DX: Z86.010 Personal history of colon polyps (principal); D12.2 Benign neoplasm of ascending colon; K63.5 Polyp of colon; D50.9 Iron deficiency anemia, unspecified; I25.10 Atherosclerotic heart disease of native coronary artery without angina pectoris; I25.2 Old myocardial infarction; G47.33 Obstructive sleep apnea (adult) (pediatric); F17.200 Nicotine dependence, unspecified, uncomplicated; I10 Essential (primary) hypertension; E11.9 Type 2 diabetes mellitus without complications; E03.9 Hypothyroidism, unspecified; K74.60 Unspecified cirrhosis of liver; Z79.02 Long term (current) use of antithrombotics/antiplatelets; Z79.51 Long term (current) use of inhaled steroids; Z79.82 Long term (current) use of aspirin; Z79.890 Hormone replacement therapy; Z79.899 Other long term (current) drug therapy; Z95.5 Presence of coronary angioplasty implant and graft
CPT/HCPCS: 43235; 45385; 88305; J3010

== ENCOUNTER → 2022-11-20 | Outpatient (REF) | payer MEDICARE, MEDICAID ==
[~2022-11-20] MED LIST changes: -NS 1,000 ML IV ONE
== END ==
LOC: M SFHCRHEU 10:48
PROVIDERS: ATTEND Internal Medicine
DX: M62.81 Muscle weakness (generalized) (principal)

== ENCOUNTER → 2022-11-27 | Outpatient (CLI) | payer MEDICARE, MEDICAID | LOC: M PLAIMG 12:47 | PROVIDERS: ATTEND Neurological Surgery | DX: M47.21 Other spondylosis with radiculopathy, occipito-atlanto-axial region (principal); M47.26 Other spondylosis with radiculopathy, lumbar region; M51.36 Other intervertebral disc degeneration, lumbar region; Z95.828 Presence of other vascular implants and grafts; N20.0 Calculus of kidney ==

== ENCOUNTER → 2022-12-04 | Outpatient (CLI) | payer MEDICARE, MEDICAID | LOC: M PLAIMG 08:48 | PROVIDERS: ATTEND Physician Assistant Medical | DX: M54.16 Radiculopathy, lumbar region (principal) ==

== ENCOUNTER → 2022-12-24 | Outpatient (CLI) | payer MEDICARE, MEDICAID | LOC: M RAD 07:44 | PROVIDERS: ATTEND Nurse Practitioner Adult Health | DX: Z12.2 Encounter for screening for malignant neoplasm of respiratory organs (principal); F17.218 Nicotine dependence, cigarettes, with other nicotine-induced disorders; R91.8 Other nonspecific abnormal finding of lung field ==

== ENCOUNTER → 2023-01-26 | Outpatient (CLI) | payer MEDICARE, MEDICAID | LOC: M RAD 14:17 | PROVIDERS: ATTEND Physician Assistant | DX: R09.89 Other specified symptoms and signs involving the circulatory and respiratory systems (principal); I65.23 Occlusion and stenosis of bilateral carotid arteries ==

== ENCOUNTER 2023-02-01 16:51 | Observation (INO) | payer MEDICARE, MEDICAID ==
[2023-02-01] VITALS (7 sets, daily range): BP systolic 108–126; BP diastolic 61–70; TEMP 97.2–97.8; O2SAT 96–99
[~2023-02-01] VITALS: Ht 182.9 cm; Wt 84.3 kg
[~2023-02-01 16:51] MED LIST changes: -ALBU8.5H INH; -BRIL1TAB PO; -FLUT1BLS8 INH; -GABA-282 PO; -GABA-283 PO; -GLIP5TAB20 PO; -JARD1TAB PO; -METF-838 PO; -ROSU40TA4 PO; -VITA100018 PO; -ZOLO100T PO
[2023-02-01] MEDS ORDERED: MOM 30ML SUSPENSION UDC PO PRN (17:55)
[2023-02-01] MEDS ORDERED: ACETAMINOPHEN TAB 650MG DOSE (2X325MG) PO PRN (17:55)
[2023-02-01] MEDS ORDERED: DEXTROSE 50% 50ML SYRINGE IV PRN (17:55)
[2023-02-01] MEDS ORDERED: GLUCOSE 4GM CHEW TABLET PO PRN (17:55)
[2023-02-01] MEDS ORDERED: GLUCAGON INJ 1MG VIAL SC PRN (17:55)
[2023-02-01 18:43] LABS: INR 0.99; PROTHROMBIN TIME 13.3 SECONDS (12.5-14.5)
[2023-02-01] MEDS ORDERED: MED REC IN PROGRESS XX SCH (20:10)
[2023-02-01] MEDS ORDERED: ROSU40TA4 PO (20:44)
[2023-02-01] MEDS ORDERED: GABA-283 PO (20:44)
[2023-02-01] MEDS ORDERED: GLIP5TAB20 PO (20:44)
[2023-02-01] MEDS ORDERED: GABA-282 PO (20:44)
[2023-02-01] MEDS ORDERED: FLUT1BLS8 INH (20:44)
[2023-02-01] MEDS ORDERED: PANT40TA29 PO (20:44)
[2023-02-01] MEDS ORDERED: ZOLO100T PO (20:44)
[2023-02-01] MEDS ORDERED: JARD1TAB PO (20:44)
[2023-02-01] MEDS ORDERED: METF-838 PO (20:44)
[2023-02-01] MEDS: INSULIN LISPRO (NovoLOG) PER UNIT SC SCH (21:00)
[2023-02-01] MEDS: DOCUSATE SODIUM 100MG CAPSULE PO SCH (21:00)
[2023-02-01 23:01] LABS: HEMATOCRIT 23.2 % (42.0-52.0); MEAN CORPUSCULAR HEMOGLOBIN 22.7 pg (27.0-33.0); MEAN CORPUSCULAR HGB CONC 29.3 g/dl (32.0-36.5); MEAN CORPUSCULAR VOLUME 77.3 fl (80.0-96.0); PLATELET COUNT, AUTOMATED 170 10^3/uL (150-450); WHITE BLOOD COUNT 3.6 10^3/uL (4.0-10.0)
[2023-02-01 23:11] LABS: HEMOGLOBIN 6.8 g/dl (13.5-17.5)
[2023-02-02] VITALS (15 sets, daily range): BP systolic 103–118; BP diastolic 52–76; TEMP 97.2–98; O2SAT 95–100
[2023-02-02 03:38] LABS: HEMATOCRIT 25.9 % (42.0-52.0); HEMOGLOBIN 7.9 g/dl (13.5-17.5)
[2023-02-02] MEDS ORDERED: ALBU8.5H INH (03:48)
[2023-02-02] MEDS ORDERED: BRIL1TAB PO (03:48)
[2023-02-02] MEDS ORDERED: NITR4TASL SL (03:48)
[2023-02-02] MEDS ORDERED: EZET10TA21 PO (03:48)
[2023-02-02] MEDS ORDERED: HOME MED LIST COMPLETE! XX SCH (03:50)
[2023-02-02] MEDS ORDERED: ALBU2.5V10 INH (03:51)
[2023-02-02] MEDS ORDERED: ALBUTEROL 90 MCG/ACT 8GM HFA INHALER INH PRN (04:25)
[2023-02-02] MEDS ORDERED: VITA100018 PO (04:36)
[2023-02-02] MEDS: LEVOTHYROXINE 125MCG TABLET (0.125MG) PO SCH (05:30)
[2023-02-02] MEDS: ADVAIR HFA 230/21MCG INHALER INH SCH ×2 (07:13→20:58)
[2023-02-02] MEDS: TIOTROPIUM INHALER/CAPSULE (SPIRIVA) INH SCH (07:13)
[2023-02-02] MEDS: DOCUSATE SODIUM 100MG CAPSULE PO SCH ×2 (08:28→21:09)
[2023-02-02] MEDS: EZETIMIBE 10MG TABLET (ZETIA) PO SCH (08:28)
[2023-02-02] MEDS: GABAPENTIN 400MG CAP PO SCH ×2 (08:28→21:08)
[2023-02-02] MEDS: CYANOCOBALAMIN 500 MCG TAB PO SCH (08:28)
[2023-02-02] MEDS: PANTOPRAZOLE 40MG TAB (PROTONIX) PO SCH (08:28)
[2023-02-02] MEDS: SERTRALINE 100 MG TAB PO SCH (08:28)
[2023-02-02] MEDS: ROSUVASTATIN 10 MG TAB (CRESTOR) PO SCH (08:29)
[2023-02-02] MEDS: INSULIN LISPRO (NovoLOG) PER UNIT SC SCH ×4 (08:30→21:09)
[2023-02-02 08:51] LABS: HEMATOCRIT 29.9 % (42.0-52.0); HEMOGLOBIN 9.2 g/dl (13.5-17.5); MEAN CORPUSCULAR HEMOGLOBIN 23.8 pg (27.0-33.0); MEAN CORPUSCULAR HGB CONC 30.8 g/dl (32.0-36.5); MEAN CORPUSCULAR VOLUME 77.3 fl (80.0-96.0); PLATELET COUNT, AUTOMATED 163 10^3/uL (150-450); RED BLOOD COUNT 3.87 10^6/uL (4.30-6.10); WHITE BLOOD COUNT 3.5 10^3/uL (4.0-10.0)
[2023-02-02] MEDS ORDERED: BRILINTA 60 MG PO SCH (09:00)
[2023-02-02 09:17] LABS: BLOOD UREA NITROGEN 11 MG/DL (9-23); CALCIUM LEVEL 8.1 MG/DL (8.5-10.1); CARBON DIOXIDE LEVEL 22 MMOL/L (20-31); CHLORIDE LEVEL 109 MMOL/L (98-107); CREATININE FOR GFR 0.63 MG/DL (0.70-1.30); GLOMERULAR FILTRATION RATE > 60.0 (>56); GLUCOSE, FASTING 119 MG/DL (60-100); POTASSIUM SERUM 3.8 MMOL/L (3.5-5.1); SODIUM LEVEL 139 MMOL/L (136-145)
[2023-02-02 13:50] LABS: HEMOGLOBIN 10.4 g/dl (13.5-17.5)
[2023-02-02 21:00] LABS: HEMATOCRIT 30.7 % (42.0-52.0); HEMOGLOBIN 9.5 g/dl (13.5-17.5)
[2023-02-02] MEDS ORDERED: ASPIRIN 81MG ENTERIC TABLET PO SCH (21:00)
[2023-02-02] MEDS ORDERED: FAMOTIDINE 20 MG TAB PO SCH (21:00)
[2023-02-03] MEDS: LEVOTHYROXINE 125MCG TABLET (0.125MG) PO SCH (05:36)
[2023-02-03 05:37] VITALS: BP 114/61; TEMP 97.6; O2SAT 98
[2023-02-03 06:13] LABS: HEMATOCRIT 31.9 % (42.0-52.0); HEMOGLOBIN 9.6 g/dl (13.5-17.5); MEAN CORPUSCULAR HEMOGLOBIN 23.4 pg (27.0-33.0); MEAN CORPUSCULAR HGB CONC 30.1 g/dl (32.0-36.5); MEAN CORPUSCULAR VOLUME 77.8 fl (80.0-96.0); PLATELET COUNT, AUTOMATED 167 10^3/uL (150-450); WHITE BLOOD COUNT 3.4 10^3/uL (4.0-10.0)
[2023-02-03 06:31] LABS: BLOOD UREA NITROGEN 11 MG/DL (9-23); CARBON DIOXIDE LEVEL 24 MMOL/L (20-31); CHLORIDE LEVEL 109 MMOL/L (98-107); CREATININE FOR GFR 0.57 MG/DL (0.70-1.30); GLOMERULAR FILTRATION RATE > 60.0 (>56); GLUCOSE, FASTING 178 MG/DL (60-100); PHOSPHORUS LEVEL 3.7 MG/DL (2.5-4.9); POTASSIUM SERUM 3.6 MMOL/L (3.5-5.1); SODIUM LEVEL 139 MMOL/L (136-145)
[2023-02-03] MEDS: TIOTROPIUM INHALER/CAPSULE (SPIRIVA) INH SCH (07:14)
[2023-02-03] MEDS: ADVAIR HFA 230/21MCG INHALER INH SCH (07:14)
[2023-02-03 08:00] VITALS: BP 116/62; TEMP 96.3; O2SAT 98
[2023-02-03] MEDS: CYANOCOBALAMIN 500 MCG TAB PO SCH (08:37)
[2023-02-03] MEDS: PANTOPRAZOLE 40MG TAB (PROTONIX) PO SCH (08:37)
[2023-02-03] MEDS: DOCUSATE SODIUM 100MG CAPSULE PO SCH (08:37)
[2023-02-03] MEDS: EZETIMIBE 10MG TABLET (ZETIA) PO SCH (08:37)
[2023-02-03] MEDS: ROSUVASTATIN 10 MG TAB (CRESTOR) PO SCH (08:37)
[2023-02-03] MEDS: GABAPENTIN 400MG CAP PO SCH (08:37)
[2023-02-03] MEDS: SERTRALINE 100 MG TAB PO SCH (08:37)
[2023-02-03] MEDS: INSULIN LISPRO (NovoLOG) PER UNIT SC SCH (08:38)
== END 2023-02-03 10:48 | disposition home or self-care (01) ==
LOC: M ED 16:51 → M ED INP 17:51 → M MS4PR 20:56
PROVIDERS: ADMIT Student in an Organized Health Care Education/Training Program; ATTEND Internal Medicine
DX: D50.9 Iron deficiency anemia, unspecified (principal); I25.10 Atherosclerotic heart disease of native coronary artery without angina pectoris; Z98.61 Coronary angioplasty status; I25.2 Old myocardial infarction; R31.29 Other microscopic hematuria; I10 Essential (primary) hypertension; E11.9 Type 2 diabetes mellitus without complications; E78.5 Hyperlipidemia, unspecified; F32.A Depression, unspecified; Z79.82 Long term (current) use of aspirin; E03.9 Hypothyroidism, unspecified; K21.9 Gastro-esophageal reflux disease without esophagitis; E53.8 Deficiency of other specified B group vitamins; F41.9 Anxiety disorder, unspecified; Z79.84 Long term (current) use of oral hypoglycemic drugs; Z79.899 Other long term (current) drug therapy
CPT/HCPCS: 36415; 36430; 71045; 78278; 80048; 80053; 81001; 82270; 82607; 82728; 83540; 83735; 84100; 84439; 84443; 85014; 85018; 85025; 85027; 85610; 85730; 86258; 86850; 86900; 86901; 86920; 87635; 93005; 94640; 97162; 99285; A9560; G0378; G0463; J1815; P9016

== ENCOUNTER → 2023-02-01 | Outpatient (CLI) | payer MEDICARE, MEDICAID ==
[~2023-02-01] MED LIST changes: +ALBU8.5H INH; +BRIL1TAB PO; +FLUT1BLS8 INH; +GABA-282 PO; +GABA-283 PO; +GLIP5TAB20 PO; +JARD1TAB PO; +METF-838 PO; -ROSU20TA5 PO; +ROSU20TA61 PO; +ROSU40TA4 PO; +VITA100018 PO; +ZOLO100T PO
[2023-02-01 14:33] LABS: BASO % 0.9 % (0.0-1.0); EOS # 0.2 10^3/uL (0.0-0.5); EOS % 5.6 % (0.0-3.0); HEMATOCRIT 23.7 % (42.0-52.0); LYMPH # 0.8 10^3/uL (1.5-5.0); LYMPH % 23.7 % (24.0-44.0); MEAN CORPUSCULAR HEMOGLOBIN 21.9 pg (27.0-33.0); MEAN CORPUSCULAR HGB CONC 27.8 g/dl (32.0-36.5); MEAN CORPUSCULAR VOLUME 78.7 fl (80.0-96.0); MONO # 0.3 10^3/uL (0.0-0.8); MONO % 10.3 % (2.0-8.0); NEUTROPHILS # 1.9 10^3/uL (1.5-8.5); NEUTROPHILS % 59.2 % (36.0-66.0); PLATELET COUNT, AUTOMATED 208 10^3/uL (150-450); RED BLOOD COUNT 3.01 10^6/uL (4.30-6.10); WHITE BLOOD COUNT 3.2 10^3/uL (4.0-10.0)
[2023-02-01 14:44] LABS: ALBUMIN 3.9 G/DL (3.2-5.2); ALKALINE PHOSPHATASE 101 U/L (46-116); ALT/SGPT 14 U/L (7.0-40); AST/SGOT 11 U/L (<34); BILIRUBIN,TOTAL 0.8 MG/DL (0.3-1.2); BLOOD UREA NITROGEN 14 MG/DL (9-23); CALCIUM LEVEL 8.7 MG/DL (8.5-10.1); CARBON DIOXIDE LEVEL 22 MMOL/L (20-31); CHLORIDE LEVEL 111 MMOL/L (98-107); CREATININE FOR GFR 0.67 MG/DL (0.70-1.30); GLOMERULAR FILTRATION RATE > 60.0 (>56); GLUCOSE, FASTING 128 MG/DL (60-100); IRON (FE) 26 UG/DL (65-175); POTASSIUM SERUM 4.4 MMOL/L (3.5-5.1); SODIUM LEVEL 140 MMOL/L (136-145); TOTAL PROTEIN 6.6 G/DL (5.7-8.2)
[2023-02-01 14:48] LABS: FERRITIN 2.4 NG/ML (10.5-307.3); FREE T4 1.18 NG/DL (0.89-1.76); THYROID STIMULATING HORMONE 0.657 uIU/ML (0.55-4.78)
[2023-02-01 14:49] LABS: VITAMIN B12 LEVEL 554 PG/ML (211-911)
[2023-02-01 14:54] LABS: HEMOGLOBIN 6.6 g/dl (13.5-17.5)
[2023-02-01 14:55] LABS: INR 0.94; PROTHROMBIN TIME 12.8 SECONDS (12.5-14.5)
[2023-02-01 14:56] LABS: PARTIAL THROMBOPLASTIN TIME 24.7 SECONDS (24.8-34.2)
== END ==
LOC: M PLALAB 09:39
PROVIDERS: ATTEND Physician Assistant Medical
DX: E53.8 Deficiency of other specified B group vitamins (principal); D50.9 Iron deficiency anemia, unspecified; E03.9 Hypothyroidism, unspecified; F41.9 Anxiety disorder, unspecified

== ENCOUNTER → 2023-02-09 | Outpatient (CLI) | payer MEDICARE, MEDICAID ==
[~2023-02-09] MED LIST changes: +ALBU8.5H INH; +BRIL1TAB PO; +FLUT1BLS8 INH; +GABA-282 PO; +GABA-283 PO; +GLIP5TAB20 PO; +JARD1TAB PO; +METF-838 PO; +ROSU40TA4 PO; +VITA100018 PO; +ZOLO100T PO
[2023-02-09 14:05] LABS: BASO % 1.1 % (0.0-1.0); EOS # 0.2 10^3/uL (0.0-0.5); HEMATOCRIT 33.4 % (42.0-52.0); LYMPH # 0.9 10^3/uL (1.5-5.0); LYMPH % 22.7 % (24.0-44.0); MEAN CORPUSCULAR HEMOGLOBIN 23.9 pg (27.0-33.0); MEAN CORPUSCULAR HGB CONC 29.9 g/dl (32.0-36.5); MEAN CORPUSCULAR VOLUME 79.9 fl (80.0-96.0); MONO # 0.4 10^3/uL (0.0-0.8); NEUTROPHILS # 2.3 10^3/uL (1.5-8.5); NEUTROPHILS % 60.7 % (36.0-66.0); PLATELET COUNT, AUTOMATED 204 10^3/uL (150-450); RED BLOOD COUNT 4.18 10^6/uL (4.30-6.10); WHITE BLOOD COUNT 3.8 10^3/uL (4.0-10.0)
== END ==
LOC: M PLALAB 11:45
PROVIDERS: ATTEND Physician Assistant Medical
DX: D50.9 Iron deficiency anemia, unspecified (principal)

== ENCOUNTER 2023-02-22 12:15 | Outpatient (CLI) | payer MEDICARE, MEDICAID ==
[~2023-02-22] VITALS: Ht 182.9 cm; Wt 87.1 kg
[~2023-02-22 12:15] MED LIST changes: +ALBUTEROL SULFATE 2.5MG/0.5ML INH NEB SOLN INH PRN; +EPINEPHrine INJ 1 MG/ML 1ML AMP IM PRN; +diphenhydrAMINE 50MG/ML VIAL IV PRN; +methylPREDNISolone 125MG 2ML VIAL IV PRN
[2023-02-22] MEDS ORDERED: NS 1,000 ML IV SCH (12:30)
[2023-02-22] MEDS ORDERED: IRON SUCROSE 400 MG in NS 250 ML OVER 2.5 HRS IV ONE (12:30)
[2023-02-22 12:31] VITALS: BP 112/63; O2SAT 98
[2023-02-22 15:25] VITALS: BP 109/64; O2SAT 100
[2023-02-22 15:30] VITALS: BP 118/78; O2SAT 99
== END 2023-02-22 15:30 | disposition home or self-care (01) ==
LOC: M INFU 12:15
PROVIDERS: ATTEND Physician Assistant Medical
DX: D50.9 Iron deficiency anemia, unspecified (principal)
CPT/HCPCS: 96365; 96366; J1756

== ENCOUNTER → 2023-03-02 | Outpatient (CLI) | payer MEDICARE, MEDICAID ==
[~2023-03-02] MED LIST changes: -ALBUTEROL SULFATE 2.5MG/0.5ML INH NEB SOLN INH PRN; -EPINEPHrine INJ 1 MG/ML 1ML AMP IM PRN; +GLUCAGON INJ 1MG VIAL As Ordered ONE; +ISOVUE-370 76% 100ML VIAL As Ordered ONE; +NEULUMEX 0.1% SUSPENSION 450ML BOTTLE (FORMERLY VOLUMEN) As Ordered ONE; -diphenhydrAMINE 50MG/ML VIAL IV PRN; -methylPREDNISolone 125MG 2ML VIAL IV PRN
== END ==
LOC: M RAD 09:38
PROVIDERS: ATTEND Physician Assistant Medical
DX: D50.9 Iron deficiency anemia, unspecified (principal); R93.5 Abnormal findings on diagnostic imaging of other abdominal regions, including retroperitoneum

== ENCOUNTER → 2023-03-10 | Outpatient (CLI) | payer MEDICARE, MEDICAID | LOC: M RAD 07:24 | PROVIDERS: ATTEND Physician Assistant Medical | DX: D50.9 Iron deficiency anemia, unspecified (principal); K57.30 Diverticulosis of large intestine without perforation or abscess without bleeding; K42.9 Umbilical hernia without obstruction or gangrene; I70.0 Atherosclerosis of aorta; I25.10 Atherosclerotic heart disease of native coronary artery without angina pectoris | CPT/HCPCS: 74177; J1610; Q9967 ==

== ENCOUNTER → 2023-03-23 | Outpatient (CLI) | payer MEDICARE, MEDICAID ==
[~2023-03-23] MED LIST changes: +D-101000 PO; -GABA-283 PO; +GABA-284 PO; -GLUCAGON INJ 1MG VIAL As Ordered ONE; +IRON65TA2 PO; -ISOVUE-370 76% 100ML VIAL As Ordered ONE; -NEULUMEX 0.1% SUSPENSION 450ML BOTTLE (FORMERLY VOLUMEN) As Ordered ONE
[2023-03-23 14:10] LABS: BASO % 0.9 % (0.0-1.0); EOS # 0.2 10^3/uL (0.0-0.5); EOS % 4.6 % (0.0-3.0); HEMATOCRIT 36.9 % (42.0-52.0); HEMOGLOBIN 11.6 g/dl (13.5-17.5); LYMPH % 23.4 % (24.0-44.0); MEAN CORPUSCULAR HEMOGLOBIN 27.4 pg (27.0-33.0); MEAN CORPUSCULAR HGB CONC 31.4 g/dl (32.0-36.5); MEAN CORPUSCULAR VOLUME 87.2 fl (80.0-96.0); MONO # 0.4 10^3/uL (0.0-0.8); MONO % 8.3 % (2.0-8.0); NEUTROPHILS # 2.7 10^3/uL (1.5-8.5); NEUTROPHILS % 62.3 % (36.0-66.0); PLATELET COUNT, AUTOMATED 183 10^3/uL (150-450); RED BLOOD COUNT 4.23 10^6/uL (4.30-6.10); WHITE BLOOD COUNT 4.3 10^3/uL (4.0-10.0)
[2023-03-23 14:25] LABS: ALBUMIN 4.1 G/DL (3.2-5.2); ALKALINE PHOSPHATASE 92 U/L (46-116); ALT/SGPT 22 U/L (7.0-40); AST/SGOT < 8 U/L (<34); BILIRUBIN,TOTAL 0.7 MG/DL (0.3-1.2); BLOOD UREA NITROGEN 11 MG/DL (9-23); CALCIUM LEVEL 9.2 MG/DL (8.5-10.1); CARBON DIOXIDE LEVEL 25 MMOL/L (20-31); CHLORIDE LEVEL 107 MMOL/L (98-107); CREATININE FOR GFR 0.63 MG/DL (0.70-1.30); FERRITIN 15.4 NG/ML (10.5-307.3); GLOMERULAR FILTRATION RATE > 60.0 (>56); GLUCOSE, FASTING 164 MG/DL (60-100); IRON (FE) 118 UG/DL (65-175); POTASSIUM SERUM 3.6 MMOL/L (3.5-5.1); SODIUM LEVEL 141 MMOL/L (136-145); TOTAL PROTEIN 7.1 G/DL (5.7-8.2)
[2023-03-23 14:26] LABS: VITAMIN B12 LEVEL 1209 PG/ML (211-911)
[2023-03-23 14:32] LABS: HEMOGLOBIN A1c 5.4 % (4.0-6.0)
== END ==
LOC: M PLALAB 10:19
PROVIDERS: ATTEND Physician Assistant Medical
DX: D50.9 Iron deficiency anemia, unspecified (principal); E11.9 Type 2 diabetes mellitus without complications; E78.2 Mixed hyperlipidemia; E53.8 Deficiency of other specified B group vitamins

== ENCOUNTER 2023-03-31 08:25 | Outpatient (CLI) | payer MEDICARE, MEDICAID ==
[~2023-03-31] VITALS: Ht 182.9 cm; Wt 90.0 kg
[~2023-03-31 08:25] MED LIST changes: +ALBUTEROL SULFATE 2.5MG/0.5ML INH NEB SOLN INH PRN; +EPINEPHrine INJ 1 MG/ML 1ML AMP IM PRN; +diphenhydrAMINE 50MG/ML VIAL IV PRN; +methylPREDNISolone 125MG 2ML VIAL IV PRN
[2023-03-31] MEDS ORDERED: ACETAMINOPHEN TAB 650MG DOSE (2X325MG) PO ONE (08:30)
[2023-03-31] MEDS ORDERED: IRON SUCROSE 300 MG in NS 250 ML OVER 90 MIN. IV ONE (08:30)
[2023-03-31] MEDS ORDERED: diphenhydrAMINE 25MG CAP PO ONE (08:30)
[2023-03-31] MEDS ORDERED: NS 1,000 ML IV SCH (08:30)
[2023-03-31 08:44] VITALS: BP 110/63; O2SAT 100
[2023-03-31 10:40] VITALS: BP 133/70; O2SAT 98
== END 2023-03-31 10:40 ==
LOC: M INFU 08:25
PROVIDERS: ATTEND Physician Assistant Medical
DX: D50.9 Iron deficiency anemia, unspecified (principal)
CPT/HCPCS: 96365; 96366; J1756

== ENCOUNTER 2023-04-02 12:21 | Day surgery (SDC) | payer MEDICARE, MEDICAID ==
[~2023-04-02] VITALS: Ht 182.9 cm; Wt 86.8 kg
[~2023-04-02 12:21] MED LIST changes: -ALBUTEROL SULFATE 2.5MG/0.5ML INH NEB SOLN INH PRN; -EPINEPHrine INJ 1 MG/ML 1ML AMP IM PRN; +NS 1,000 ML IV ONE; -diphenhydrAMINE 50MG/ML VIAL IV PRN; -methylPREDNISolone 125MG 2ML VIAL IV PRN
[2023-04-02] MEDS ORDERED: propofoL 200 MG/20 ML VIAL As Ordered ONE ×4 (14:38→15:14)
[2023-04-02] MEDS ORDERED: LIDOCAINE 2% 100MG/5ML SDV (FOR ANES.) As Ordered ONE (14:38)
[2023-04-02] MEDS ORDERED: GLYCOPYRROLATE INJ 0.2 MG/ML 2 ML VIAL As Ordered ONE (14:47)
[2023-04-02 15:21] VITALS: TEMP 97.7
[2023-04-02 15:36] VITALS: BP 111/64; O2SAT 94
== END 2023-04-02 15:38 | disposition home or self-care (01) ==
LOC: M OPP 12:21
PROVIDERS: ATTEND Internal Medicine Gastroenterology
DX: D50.9 Iron deficiency anemia, unspecified (principal); K44.9 Diaphragmatic hernia without obstruction or gangrene; K31.819 Angiodysplasia of stomach and duodenum without bleeding; F17.200 Nicotine dependence, unspecified, uncomplicated; Z79.52 Long term (current) use of systemic steroids; Z79.82 Long term (current) use of aspirin; Z79.84 Long term (current) use of oral hypoglycemic drugs; Z79.890 Hormone replacement therapy; Z79.891 Long term (current) use of opiate analgesic; Z79.899 Other long term (current) drug therapy

== ENCOUNTER → 2023-05-04 | Outpatient (CLI) | payer MEDICARE, MEDICAID ==
[~2023-05-04] MED LIST changes: -NS 1,000 ML IV ONE
[2023-05-04 14:25] LABS: BASO % 0.5 % (0.0-1.0); EOS # 0.3 10^3/uL (0.0-0.5); EOS % 4.6 % (0.0-3.0); HEMATOCRIT 40.8 % (42.0-52.0); LYMPH % 17.8 % (24.0-44.0); MEAN CORPUSCULAR HEMOGLOBIN 28.1 pg (27.0-33.0); MEAN CORPUSCULAR HGB CONC 31.9 g/dl (32.0-36.5); MEAN CORPUSCULAR VOLUME 88.1 fl (80.0-96.0); MONO # 0.6 10^3/uL (0.0-0.8); MONO % 10.2 % (2.0-8.0); NEUTROPHILS # 3.7 10^3/uL (1.5-8.5); NEUTROPHILS % 66.5 % (36.0-66.0); PLATELET COUNT, AUTOMATED 189 10^3/uL (150-450); RED BLOOD COUNT 4.63 10^6/uL (4.30-6.10); WHITE BLOOD COUNT 5.6 10^3/uL (4.0-10.0)
== END ==
LOC: M PLALAB 09:42
PROVIDERS: ATTEND Physician Assistant Medical
DX: D50.9 Iron deficiency anemia, unspecified (principal); Z12.5 Encounter for screening for malignant neoplasm of prostate
CPT/HCPCS: 36415; 82728; 85025; G0103

== ENCOUNTER 2023-05-21 08:57 | Outpatient (CLI) | payer MEDICARE, MEDICAID ==
[~2023-05-21] VITALS: Ht 182.9 cm; Wt 86.4 kg
[~2023-05-21 08:57] MED LIST changes: +ALBUTEROL SULFATE 2.5MG/0.5ML INH NEB SOLN INH PRN; +EPINEPHrine INJ 1 MG/ML 1ML AMP IM PRN; +diphenhydrAMINE 50MG/ML VIAL IV PRN; +methylPREDNISolone 125MG 2ML VIAL IV PRN
[2023-05-21 09:00] VITALS: BP 111/57; O2SAT 97
[2023-05-21] MEDS ORDERED: IRON SUCROSE 250 MG in NS 237.5 ML IV ONE (09:05)
[2023-05-21] MEDS ORDERED: diphenhydrAMINE 25MG CAP PO ONE (09:05)
[2023-05-21] MEDS ORDERED: NS 1,000 ML IV SCH (09:05)
[2023-05-21] MEDS ORDERED: ACETAMINOPHEN TAB 650MG DOSE (2X325MG) PO ONE (09:05)
[2023-05-21 11:45] VITALS: BP 111/58; O2SAT 99
== END 2023-05-21 11:45 | disposition home or self-care (01) ==
LOC: M INFU 08:57
PROVIDERS: ATTEND Physician Assistant Medical
DX: D50.9 Iron deficiency anemia, unspecified (principal)
CPT/HCPCS: 96365; 96366; J1756

== ENCOUNTER → 2023-06-01 | Outpatient (CLI) | payer MEDICARE, MEDICAID ==
[~2023-06-01] MED LIST changes: -ALBUTEROL SULFATE 2.5MG/0.5ML INH NEB SOLN INH PRN; -EPINEPHrine INJ 1 MG/ML 1ML AMP IM PRN; -OXYB5TAB10 PO; +OXYB5TAB11 PO; -diphenhydrAMINE 50MG/ML VIAL IV PRN; -methylPREDNISolone 125MG 2ML VIAL IV PRN
== END ==
LOC: M PLAIMG 12:06
PROVIDERS: ATTEND Nurse Practitioner Adult Health
DX: J45.909 Unspecified asthma, uncomplicated (principal)

== ENCOUNTER → 2023-06-01 | Outpatient (CLI) | payer MEDICARE, MEDICAID ==
[2023-06-01 09:57] LABS: HEMATOCRIT 40.1 % (42.0-52.0); HEMOGLOBIN 13.2 g/dl (13.5-17.5); MEAN CORPUSCULAR HEMOGLOBIN 28.9 pg (27.0-33.0); MEAN CORPUSCULAR HGB CONC 32.9 g/dl (32.0-36.5); MEAN CORPUSCULAR VOLUME 87.9 fl (80.0-96.0); PLATELET COUNT, AUTOMATED 190 10^3/uL (150-450); RED BLOOD COUNT 4.56 10^6/uL (4.30-6.10); WHITE BLOOD COUNT 4.8 10^3/uL (4.0-10.0)
[2023-06-01 10:10] LABS: INR 1.04; PROTHROMBIN TIME 13.3 SECONDS (12.5-14.5)
[2023-06-01 10:11] LABS: PARTIAL THROMBOPLASTIN TIME 26.2 SECONDS (24.8-34.2)
[2023-06-01 10:22] LABS: ALKALINE PHOSPHATASE 98 U/L (46-116); ALT/SGPT 25 U/L (7.0-40); AST/SGOT 12 U/L (<34); BILIRUBIN,TOTAL 0.6 MG/DL (0.3-1.2); BLOOD UREA NITROGEN 12 MG/DL (9-23); CARBON DIOXIDE LEVEL 25 MMOL/L (20-31); CHLORIDE LEVEL 107 MMOL/L (98-107); CREATININE FOR GFR 0.61 MG/DL (0.70-1.30); GLOMERULAR FILTRATION RATE > 60.0 (>56); GLUCOSE, FASTING 216 MG/DL (60-100); POTASSIUM SERUM 3.9 MMOL/L (3.5-5.1); SODIUM LEVEL 140 MMOL/L (136-145); TOTAL PROTEIN 7.2 G/DL (5.7-8.2)
== END ==
LOC: M LAB 08:34
PROVIDERS: ATTEND Neurological Surgery
DX: Z01.812 Encounter for preprocedural laboratory examination (principal); R06.02 Shortness of breath; M47.26 Other spondylosis with radiculopathy, lumbar region

== ENCOUNTER 2023-06-04 09:15 | Outpatient (CLI) | payer MEDICARE, MEDICAID ==
[~2023-06-04] VITALS: Ht 182.9 cm; Wt 81.4 kg
[2023-06-04 09:10] VITALS: BP 125/68; O2SAT 96
[2023-06-04] MEDS ORDERED: diphenhydrAMINE 50MG/ML VIAL IV PRN (09:25)
[2023-06-04] MEDS ORDERED: diphenhydrAMINE 25MG CAP PO ONE (09:25)
[2023-06-04] MEDS ORDERED: IRON SUCROSE 250 MG in NS 237.5 ML IV ONE (09:25)
[2023-06-04] MEDS ORDERED: ACETAMINOPHEN TAB 650MG DOSE (2X325MG) PO ONE (09:25)
[2023-06-04] MEDS ORDERED: methylPREDNISolone 125MG 2ML VIAL IV PRN (09:25)
[2023-06-04] MEDS ORDERED: NS 1,000 ML IV SCH (09:25)
[2023-06-04] MEDS ORDERED: EPINEPHrine INJ 1 MG/ML 1ML AMP IM PRN (09:25)
[2023-06-04] MEDS ORDERED: ALBUTEROL SULFATE 2.5MG/0.5ML INH NEB SOLN INH PRN (09:25)
[2023-06-04 11:35] VITALS: BP 114/65; O2SAT 98
== END 2023-06-04 11:35 ==
LOC: M INFU 09:15
PROVIDERS: ATTEND Physician Assistant Medical
DX: D50.9 Iron deficiency anemia, unspecified (principal)
CPT/HCPCS: 96365; J1756

== ENCOUNTER → 2023-08-05 | Outpatient (CLI) | payer MEDICARE, MEDICAID ==
[2023-08-05 14:39] LABS: BASO % 0.6 % (0.0-1.0); EOS # 0.1 10^3/uL (0.0-0.5); EOS % 2.7 % (0.0-3.0); HEMATOCRIT 38.8 % (42.0-52.0); LYMPH # 0.8 10^3/uL (1.5-5.0); MEAN CORPUSCULAR HEMOGLOBIN 26.2 pg (27.0-33.0); MEAN CORPUSCULAR HGB CONC 30.9 g/dl (32.0-36.5); MEAN CORPUSCULAR VOLUME 84.7 fl (80.0-96.0); MONO # 0.5 10^3/uL (0.0-0.8); MONO % 10.2 % (2.0-8.0); NEUTROPHILS # 3.6 10^3/uL (1.5-8.5); NEUTROPHILS % 69.7 % (36.0-66.0); PLATELET COUNT, AUTOMATED 267 10^3/uL (150-450); RED BLOOD COUNT 4.58 10^6/uL (4.30-6.10); WHITE BLOOD COUNT 5.2 10^3/uL (4.0-10.0)
[2023-08-05 15:11] LABS: FERRITIN 7.4 NG/ML (10.5-307.3)
== END ==
LOC: M PLALAB 09:38
PROVIDERS: ATTEND Physician Assistant Medical
DX: D50.9 Iron deficiency anemia, unspecified (principal)

== ENCOUNTER 2023-08-23 11:01 | Outpatient (CLI) | payer MEDICARE, MEDICAID ==
[~2023-08-23] VITALS: Ht 182.9 cm; Wt 88.2 kg
[~2023-08-23 11:01] MED LIST changes: +ALBUTEROL SULFATE 2.5MG/0.5ML INH NEB SOLN INH PRN; +EPINEPHrine INJ 1 MG/ML 1ML AMP IM PRN; +NS 1,000 ML IV SCH; +diphenhydrAMINE 50MG/ML VIAL IV PRN; +methylPREDNISolone 125MG 2ML VIAL IV PRN
[2023-08-23] MEDS ORDERED: IRON SUCROSE 250 MG in NS 237.5 ML IV ONE (11:30)
[2023-08-23] MEDS ORDERED: ACETAMINOPHEN 650MG PO PRIOR TO INFUSION PO ONE (11:30)
[2023-08-23] MEDS ORDERED: diphenhydrAMINE 25MG PO PRIOR TO INFUSION PO ONE (11:30)
[2023-08-23 11:35] VITALS: BP 111/59; O2SAT 98
[2023-08-23 14:15] VITALS: BP 117/66; O2SAT 99
== END 2023-08-23 14:15 ==
LOC: M INFU 11:01
PROVIDERS: ATTEND Physician Assistant Medical
DX: D50.9 Iron deficiency anemia, unspecified (principal)
CPT/HCPCS: 96365; 96366; J1756

== ENCOUNTER 2023-08-30 11:00 | Outpatient (CLI) | payer MEDICARE, MEDICAID ==
[~2023-08-30] VITALS: Ht 182.9 cm; Wt 88.2 kg
[~2023-08-30 11:00] MED LIST changes: +ACETAMINOPHEN 650MG PO PRIOR TO INFUSION PO ONE; +IRON SUCROSE 250 MG in NS 237.5 ML IV ONE; +diphenhydrAMINE 25MG PO PRIOR TO INFUSION PO ONE
[2023-08-30 11:10] VITALS: BP 123/73; O2SAT 100
[2023-08-30 13:20] VITALS: BP 105/56; O2SAT 97
== END 2023-08-30 13:20 ==
LOC: M INFU 11:00
PROVIDERS: ATTEND Physician Assistant Medical
DX: D50.9 Iron deficiency anemia, unspecified (principal)
CPT/HCPCS: 96365; J1756

== ENCOUNTER → 2023-11-12 | Outpatient (REF) | payer MEDICARE, MEDICAID ==
[~2023-11-12] MED LIST changes: -ACETAMINOPHEN 650MG PO PRIOR TO INFUSION PO ONE; -ALBUTEROL SULFATE 2.5MG/0.5ML INH NEB SOLN INH PRN; -EPINEPHrine INJ 1 MG/ML 1ML AMP IM PRN; -IRON SUCROSE 250 MG in NS 237.5 ML IV ONE; -NS 1,000 ML IV SCH; -OXYB5TAB11 PO; +OXYB5TAB14 PO; -diphenhydrAMINE 25MG PO PRIOR TO INFUSION PO ONE; -diphenhydrAMINE 50MG/ML VIAL IV PRN; -methylPREDNISolone 125MG 2ML VIAL IV PRN
[2023-11-12 13:25] LABS: APPEARANCE, URINE CLEAR (CLEAR); BACTERIA, URINE AUTO NEGATIVE (NEGATIVE); BILIRUBIN, URINE AUTO NEGATIVE (NEGATIVE); BLOOD, URINE BLOOD 3+ (NEGATIVE); COLOR, URINE YELLOW (YELLOW); GLUCOSE, URINE (UA) AUTO 3+ mg/dL (NEGATIVE); KETONE, URINE AUTO NEGATIVE (NEGATIVE); LEUKOCYTE ESTERASE, URINE AUTO NEGATIVE (NEGATIVE); NITRITE, URINE AUTO NEGATIVE (NEGATIVE); PROTEIN, URINE AUTO NEGATIVE (NEGATIVE); RBC, URINE AUTO 28 /HPF (0-3); SPECIFIC GRAVITY URINE AUTO 1.035 (1.002-1.035); SQUAMOUS EPITHELIAL CELL UR AU 0 /HPF (0-6); UROBILINOGEN, URINE AUTO 0.2 mg/dL (0.0-2.0); WBC, URINE AUTO 0 /HPF (0-3)
== END ==
LOC: M SFHCPLAZ 12:42
PROVIDERS: ATTEND Physician Assistant
DX: M54.50 Low back pain, unspecified (principal); Z79.899 Other long term (current) drug therapy

== ENCOUNTER → 2023-11-24 | Outpatient (CLI) | payer MEDICARE, MEDICAID ==
[2023-11-24 10:28] LABS: BASO % 0.5 % (0.0-1.0); EOS # 0.2 10^3/uL (0.0-0.5); EOS % 4.1 % (0.0-3.0); HEMATOCRIT 36.7 % (42.0-52.0); HEMOGLOBIN 11.3 g/dl (13.5-17.5); LYMPH # 0.9 10^3/uL (1.5-5.0); LYMPH % 21.8 % (24.0-44.0); MEAN CORPUSCULAR HGB CONC 30.8 g/dl (32.0-36.5); MEAN CORPUSCULAR VOLUME 81.2 fl (80.0-96.0); MONO # 0.4 10^3/uL (0.0-0.8); MONO % 10.7 % (2.0-8.0); NEUTROPHILS # 2.6 10^3/uL (1.5-8.5); NEUTROPHILS % 62.7 % (36.0-66.0); PLATELET COUNT, AUTOMATED 217 10^3/uL (150-450); RED BLOOD COUNT 4.52 10^6/uL (4.30-6.10); WHITE BLOOD COUNT 4.1 10^3/uL (4.0-10.0)
[2023-11-24 10:30] LABS: HEMATOCRIT 36.8 % (42.0-52.0)
[2023-11-24 10:55] LABS: HEMOGLOBIN A1c 7.2 % (4.0-6.0)
[2023-11-24 10:57] LABS: CPK CREATINE PHOSPHOKINASE 58 U/L (46-171)
[2023-11-24 10:58] LABS: ALBUMIN 3.7 G/DL (3.2-5.2); ALKALINE PHOSPHATASE 99 U/L (46-116); ALT/SGPT 46 U/L (7.0-40); AST/SGOT 24 U/L (<34); BILIRUBIN,TOTAL 0.7 MG/DL (0.3-1.2); BLOOD UREA NITROGEN 17 MG/DL (9-23); CALCIUM LEVEL 9.1 MG/DL (8.5-10.1); CARBON DIOXIDE LEVEL 25 MMOL/L (20-31); CHLORIDE LEVEL 105 MMOL/L (98-107); CHOLESTEROL LEVEL 139 MG/DL (<200); CHOLESTEROL RISK RATIO 4.07 (<5); CREATININE FOR GFR 0.61 MG/DL (0.70-1.30); FERRITIN 5.3 NG/ML (10.5-307.3); FREE T4 1.38 NG/DL (0.89-1.76); GLOMERULAR FILTRATION RATE > 60.0 (>56); GLUCOSE, FASTING 176 MG/DL (60-100); HDL CHOLESTEROL 34.1 MG/DL (>40); IRON (FE) 33 UG/DL (65-175); NON-HDL-C 104.9 MG/DL; PSA SCREENING 0.66 NG/ML (< 4.00); SODIUM LEVEL 139 MMOL/L (136-145); TOTAL PROTEIN 6.7 G/DL (5.7-8.2); TRIGLYCERIDES LEVEL 901 MG/DL (<150); VITAMIN B12 LEVEL 800 PG/ML (211-911)
[2023-11-24 10:59] LABS: THYROID STIMULATING HORMONE 0.461 uIU/ML (0.55-4.78)
[2023-11-24 11:40] LABS: APPEARANCE, URINE HAZY (CLEAR); BACTERIA, URINE AUTO NEGATIVE (NEGATIVE); BILIRUBIN, URINE AUTO NEGATIVE (NEGATIVE); BLOOD, URINE BLOOD NEGATIVE (NEGATIVE); COLOR, URINE YELLOW (YELLOW); GLUCOSE, URINE (UA) AUTO 3+ mg/dL (NEGATIVE); KETONE, URINE AUTO NEGATIVE (NEGATIVE); LEUKOCYTE ESTERASE, URINE AUTO NEGATIVE (NEGATIVE); NITRITE, URINE AUTO NEGATIVE (NEGATIVE); PROTEIN, URINE AUTO NEGATIVE (NEGATIVE); RBC, URINE AUTO 3 /HPF (0-3); SPECIFIC GRAVITY URINE AUTO 1.032 (1.002-1.035); SQUAMOUS EPITHELIAL CELL UR AU 0 /HPF (0-6); UROBILINOGEN, URINE AUTO 0.2 mg/dL (0.0-2.0); WBC, URINE AUTO 0 /HPF (0-3)
[2023-11-24 16:51] LABS: LIPASE 34 U/L (12-53)
== END ==
LOC: M RAD 08:52
PROVIDERS: ATTEND Physician Assistant Medical
DX: N20.0 Calculus of kidney (principal); R16.1 Splenomegaly, not elsewhere classified; K40.20 Bilateral inguinal hernia, without obstruction or gangrene, not specified as recurrent; K42.9 Umbilical hernia without obstruction or gangrene; E78.5 Hyperlipidemia, unspecified; R10.9 Unspecified abdominal pain; R31.29 Other microscopic hematuria; D50.9 Iron deficiency anemia, unspecified; E11.9 Type 2 diabetes mellitus without complications; E78.2 Mixed hyperlipidemia; E03.9 Hypothyroidism, unspecified; E53.8 Deficiency of other specified B group vitamins; Z12.5 Encounter for screening for malignant neoplasm of prostate

== ENCOUNTER 2023-12-06 09:50 | Outpatient (CLI) | payer MEDICARE, MEDICAID ==
[2023-12-06 09:45] VITALS: BP 121/66; O2SAT 100
[~2023-12-06 09:50] MED LIST changes: +ALBUTEROL SULFATE 2.5MG/0.5ML INH NEB SOLN INH PRN; +EPINEPHrine INJ 1 MG/ML 1ML AMP IM PRN; +NS 1,000 ML IV SCH; +diphenhydrAMINE 50MG/ML VIAL IV PRN; +methylPREDNISolone 125MG 2ML VIAL IV PRN
[2023-12-06] MEDS: IRON SUCROSE 300 MG in NS 250 ML IV ONE (09:51)
[2023-12-06] MEDS ORDERED: ACETAMINOPHEN 650MG PO PRIOR TO INFUSION PO ONE (10:00)
[2023-12-06] MEDS ORDERED: NS IV ONE (10:00)
[2023-12-06] MEDS ORDERED: diphenhydrAMINE 25MG PO PRIOR TO INFUSION PO ONE (10:00)
[2023-12-06] MEDS ORDERED: IRON SUCROSE IV ONE (10:00)
[2023-12-06 11:30] VITALS: BP 125/72; O2SAT 97
== END 2023-12-06 11:40 ==
LOC: M INFU 09:50
PROVIDERS: ATTEND Physician Assistant Medical
DX: D50.9 Iron deficiency anemia, unspecified (principal)
CPT/HCPCS: 96365; 96366; J1756

== ENCOUNTER → 2024-02-01 | Outpatient (CLI) | payer MEDICARE, MEDICAID ==
[~2024-02-01] MED LIST changes: -ALBU90AE IH; +ALBU90AE2 IH; -ALBUTEROL SULFATE 2.5MG/0.5ML INH NEB SOLN INH PRN; -EPINEPHrine INJ 1 MG/ML 1ML AMP IM PRN; -NS 1,000 ML IV SCH; -RAMI1CAP22 PO; +RAMI2.5C42 PO; -ROSU40TA4 PO; +ROSU40TA63 PO; -diphenhydrAMINE 50MG/ML VIAL IV PRN; -methylPREDNISolone 125MG 2ML VIAL IV PRN
== END ==
LOC: M RAD 09:43
PROVIDERS: ATTEND Nurse Practitioner Adult Health
DX: Z12.2 Encounter for screening for malignant neoplasm of respiratory organs (principal); F17.218 Nicotine dependence, cigarettes, with other nicotine-induced disorders; J84.10 Pulmonary fibrosis, unspecified

== ENCOUNTER → 2024-02-16 | Outpatient (CLI) | payer MEDICARE, MEDICAID | LOC: M WUC 11:43 | PROVIDERS: ATTEND Physician Assistant Medical | DX: Z01.818 Encounter for other preprocedural examination (principal); D50.9 Iron deficiency anemia, unspecified; E11.9 Type 2 diabetes mellitus without complications ==

== ENCOUNTER → 2024-02-16 | Outpatient (CLI) | payer MEDICARE, MEDICAID ==
[2024-02-16 12:45] LABS: BASO % 0.5 % (0.0-1.0); EOS # 0.3 10^3/uL (0.0-0.5); EOS % 6.9 % (0.0-3.0); HEMATOCRIT 33.3 % (42.0-52.0); HEMOGLOBIN 10.1 g/dl (13.5-17.5); LYMPH # 0.7 10^3/uL (1.5-5.0); LYMPH % 17.6 % (24.0-44.0); MEAN CORPUSCULAR HEMOGLOBIN 23.9 pg (27.0-33.0); MEAN CORPUSCULAR HGB CONC 30.3 g/dl (32.0-36.5); MEAN CORPUSCULAR VOLUME 78.7 fl (80.0-96.0); MONO # 0.3 10^3/uL (0.0-0.8); MONO % 8.2 % (2.0-8.0); NEUTROPHILS # 2.7 10^3/uL (1.5-8.5); NEUTROPHILS % 66.6 % (36.0-66.0); PLATELET COUNT, AUTOMATED 202 10^3/uL (150-450); RED BLOOD COUNT 4.23 10^6/uL (4.30-6.10)
[2024-02-16 12:56] LABS: INR 1.07; PARTIAL THROMBOPLASTIN TIME 26.3 SECONDS (24.8-34.2); PROTHROMBIN TIME 13.6 SECONDS (12.5-14.5)
[2024-02-16 13:09] LABS: BLOOD UREA NITROGEN 14 MG/DL (9-23); CALCIUM LEVEL 8.7 MG/DL (8.5-10.1); CARBON DIOXIDE LEVEL 24 MMOL/L (20-31); CHLORIDE LEVEL 108 MMOL/L (98-107); GLOMERULAR FILTRATION RATE > 60.0 (>56); GLUCOSE, FASTING 264 MG/DL (60-100); IRON (FE) 24 UG/DL (65-175); SODIUM LEVEL 138 MMOL/L (136-145)
[2024-02-16 13:12] LABS: FERRITIN 4.8 NG/ML (10.5-307.3)
[2024-02-16 13:18] LABS: HEMOGLOBIN A1c 6.3 % (4.0-6.0)
== END ==
LOC: M LAB 12:09
PROVIDERS: ATTEND Physician Assistant Medical
DX: Z01.818 Encounter for other preprocedural examination (principal); D50.9 Iron deficiency anemia, unspecified; E11.9 Type 2 diabetes mellitus without complications

== ENCOUNTER 2024-02-24 06:07 | Day surgery (SDC) | payer MEDICARE, MEDICAID ==
[~2024-02-24] VITALS: Ht 182.9 cm; Wt 84.8 kg
[~2024-02-24 06:07] MED LIST changes: +PHENYLEPHRINE 10% OPHTH SOL 5ML OD PRN
[2024-02-24] MEDS: OFLOXACIN 0.3 % (OCUFLOX) OPTH SOL 5ML OD ONE (07:00)
[2024-02-24] MEDS: LIDOCAINE 3.5 % 1ML OPHTH TOPICAL GEL OU ONE (07:22)
[2024-02-24] MEDS: PHENYLEPHRINE 2.5% OPHTH SOL 2ML OD SCH (07:23)
[2024-02-24] MEDS: TROPICAMIDE 1% OPHTH SOLN 15ML OD SCH (07:23)
[2024-02-24] MEDS: ATROPINE SULFATE 1% OPHTH SOLN 2ML BTL OD SCH (07:23)
[2024-02-24] MEDS ORDERED: GLUCOSE 4 GM CHEW PO PRN (07:25)
[2024-02-24] MEDS: INSULIN LISPRO (NovoLOG) PER UNIT SC PRN (07:31)
[2024-02-24] MEDS ORDERED: MIDAZOLAM INJ 2MG/2ML VIAL As Ordered ONE (07:39)
[2024-02-24] MEDS ORDERED: fentaNYL 100 MCG/2 ML INJECTION As Ordered ONE (07:39)
[2024-02-24] MEDS: LIDOCAINE 1% SDV 5ML VIAL As Ordered ONE (08:04)
[2024-02-24] MEDS: BSS IRRIG/VANCO(10MG)/TOBRA(5MG)/EPINEPH(1:1000-0.5CC)500ML BAG-ORONLY As Ordered ONE (08:04)
[2024-02-24] MEDS: CEFUROXIME 1MG/0.1ML INTRACAMERAL INJ As Ordered ONE (08:04)
[2024-02-24 08:15] VITALS: BP 111/61; TEMP 97; O2SAT 98
== END 2024-02-24 08:30 | disposition home or self-care (01) ==
LOC: M SDC 06:07
PROVIDERS: ATTEND Ophthalmology
DX: E11.36 Type 2 diabetes mellitus with diabetic cataract (principal); H25.11 Age-related nuclear cataract, right eye; I25.10 Atherosclerotic heart disease of native coronary artery without angina pectoris; E03.9 Hypothyroidism, unspecified; I25.2 Old myocardial infarction; D50.9 Iron deficiency anemia, unspecified; E78.00 Pure hypercholesterolemia, unspecified; Z79.899 Other long term (current) drug therapy; Z79.82 Long term (current) use of aspirin; Z79.890 Hormone replacement therapy; Z79.84 Long term (current) use of oral hypoglycemic drugs; Z90.89 Acquired absence of other organs
CPT/HCPCS: 66984; J0697; J1815; J2250; J3010; V2632

== ENCOUNTER 2024-03-02 08:38 | Day surgery (SDC) | payer MEDICARE, MEDICAID ==
[~2024-03-02] VITALS: Ht 182.9 cm; Wt 84.8 kg
[~2024-03-02 08:38] MED LIST changes: +MIDAZOLAM INJ 2MG/2ML VIAL As Ordered ONE; -PHENYLEPHRINE 10% OPHTH SOL 5ML OD PRN; +PHENYLEPHRINE 10% OPHTH SOL 5ML OS PRN; +TROPICAMIDE 1% OPHTH SOLN 15ML OS SCH; +fentaNYL 100 MCG/2 ML INJECTION As Ordered ONE
[2024-03-02] MEDS: LIDOCAINE 3.5 % 1ML OPHTH TOPICAL GEL OU ONE (09:43)
[2024-03-02] MEDS: OFLOXACIN 0.3 % (OCUFLOX) OPTH SOL 5ML OS ONE (09:43)
[2024-03-02] MEDS: PHENYLEPHRINE 2.5% OPHTH SOL 2ML OS SCH (09:44)
[2024-03-02] MEDS: ATROPINE SULFATE 1% OPHTH SOLN 2ML BTL OS SCH (09:44)
[2024-03-02] MEDS: LIDOCAINE 1% SDV 5ML VIAL As Ordered ONE (10:18)
[2024-03-02] MEDS: CEFUROXIME 1MG/0.1ML INTRACAMERAL INJ As Ordered ONE (10:18)
[2024-03-02] MEDS: BSS IRRIG/VANCO(10MG)/TOBRA(5MG)/EPINEPH(1:1000-0.5CC)500ML BAG-ORONLY As Ordered ONE (10:18)
[2024-03-02 10:30] VITALS: BP 110/73; TEMP 96.9; O2SAT 98
== END 2024-03-02 10:45 | disposition home or self-care (01) ==
LOC: M SDC 08:38
PROVIDERS: ATTEND Ophthalmology
DX: E11.36 Type 2 diabetes mellitus with diabetic cataract (principal); H25.12 Age-related nuclear cataract, left eye; I25.10 Atherosclerotic heart disease of native coronary artery without angina pectoris; E03.9 Hypothyroidism, unspecified; E78.00 Pure hypercholesterolemia, unspecified; D50.9 Iron deficiency anemia, unspecified; I25.2 Old myocardial infarction; K21.9 Gastro-esophageal reflux disease without esophagitis; F17.210 Nicotine dependence, cigarettes, uncomplicated; Z79.82 Long term (current) use of aspirin; Z79.899 Other long term (current) drug therapy; Z79.890 Hormone replacement therapy; Z79.85 Long-term (current) use of injectable non-insulin antidiabetic drugs; Z79.84 Long term (current) use of oral hypoglycemic drugs; Z95.5 Presence of coronary angioplasty implant and graft; Z90.89 Acquired absence of other organs
CPT/HCPCS: 66984; J0697; J2250; J3010; V2632

== ENCOUNTER → 2024-05-26 | Outpatient (CLI) | payer MEDICARE, MEDICAID ==
[~2024-05-26] MED LIST changes: +GABA-1172 PO; -GABA-282 PO; -MIDAZOLAM INJ 2MG/2ML VIAL As Ordered ONE; -PHENYLEPHRINE 10% OPHTH SOL 5ML OS PRN; -ROSU20TA61 PO; +ROSU20TA86 PO; -ROSU40TA63 PO; +ROSU40TA81 PO; -TROPICAMIDE 1% OPHTH SOLN 15ML OS SCH; -fentaNYL 100 MCG/2 ML INJECTION As Ordered ONE
[2024-05-26 13:26] LABS: APPEARANCE, URINE CLEAR (CLEAR); BACTERIA, URINE AUTO NEGATIVE (NEGATIVE); BILIRUBIN, URINE AUTO NEGATIVE (NEGATIVE); BLOOD, URINE BLOOD NEGATIVE (NEGATIVE); COLOR, URINE YELLOW (YELLOW); GLUCOSE, URINE (UA) AUTO 3+ mg/dL (NEGATIVE); KETONE, URINE AUTO NEGATIVE (NEGATIVE); LEUKOCYTE ESTERASE, URINE AUTO NEGATIVE (NEGATIVE); MUCUS, URINE SMALL (NEGATIVE); NITRITE, URINE AUTO NEGATIVE (NEGATIVE); PROTEIN, URINE AUTO NEGATIVE (NEGATIVE); RBC, URINE AUTO 1 /HPF (0-3); SPECIFIC GRAVITY URINE AUTO 1.027 (1.002-1.035); SQUAMOUS EPITHELIAL CELL UR AU 0 /HPF (0-6); WBC, URINE AUTO 1 /HPF (0-3)
[2024-05-26 13:33] LABS: BASO % 0.7 % (0.0-1.0); EOS # 0.2 10^3/uL (0.0-0.5); EOS % 4.8 % (0.0-3.0); HEMATOCRIT 27.1 % (42.0-52.0); HEMOGLOBIN 7.7 g/dl (13.5-17.5); LYMPH # 0.8 10^3/uL (1.5-5.0); MEAN CORPUSCULAR HEMOGLOBIN 22.1 pg (27.0-33.0); MEAN CORPUSCULAR HGB CONC 28.4 g/dl (32.0-36.5); MEAN CORPUSCULAR VOLUME 77.9 fl (80.0-96.0); MONO # 0.5 10^3/uL (0.0-0.8); MONO % 10.1 % (2.0-8.0); PLATELET COUNT, AUTOMATED 221 10^3/uL (150-450); RED BLOOD COUNT 3.48 10^6/uL (4.30-6.10); WHITE BLOOD COUNT 4.6 10^3/uL (4.0-10.0)
[2024-05-26 13:41] LABS: FERRITIN 5.1 NG/ML (10.5-307.3)
== END ==
LOC: M PLALAB 09:39
PROVIDERS: ATTEND Physician Assistant Medical
DX: R35.0 Frequency of micturition (principal); D50.9 Iron deficiency anemia, unspecified

== ENCOUNTER → 2024-05-29 | Outpatient (CLI) | payer MEDICARE, MEDICAID | LOC: M LAB 08:35 | PROVIDERS: ATTEND Physician Assistant Medical | DX: R71.0 Precipitous drop in hematocrit (principal) ==

== ENCOUNTER 2024-05-30 08:11 | Outpatient (CLI) | payer MEDICARE, MEDICAID ==
[~2024-05-30] VITALS: Ht 182.9 cm; Wt 85.0 kg
[2024-05-30] MEDS: diphenhydrAMINE 25MG CAP PO ONE (09:00)
[2024-05-30] MEDS ORDERED: NS 250 ML IV ONE (09:00)
[2024-05-30] MEDS: ACETAMINOPHEN 650 MG PO ONE (09:00)
[2024-05-30 09:27] VITALS: BP 120/77; TEMP 97.5; O2SAT 100
[2024-05-30 09:44] VITALS: BP 109/55; TEMP 97.3; O2SAT 100
[2024-05-30 10:45] VITALS: BP 117/58; TEMP 98.1; O2SAT 100
[2024-05-30 11:30] VITALS: BP 123/60; TEMP 97.8; O2SAT 99
[2024-05-30 11:55] VITALS: BP 116/62; TEMP 97.7; O2SAT 99
[2024-05-30 13:15] VITALS: BP 110/58; TEMP 98.4; O2SAT 100
== END 2024-05-30 13:25 ==
LOC: M INFU 08:11
PROVIDERS: ATTEND Physician Assistant Medical
DX: R71.0 Precipitous drop in hematocrit (principal)
CPT/HCPCS: 36430; P9016

== ENCOUNTER → 2024-06-09 | Outpatient (CLI) | payer MEDICARE, MEDICAID ==
[2024-06-09 11:24] LABS: EOS # 0.2 10^3/uL (0.0-0.5); EOS % 4.8 % (0.0-3.0); HEMATOCRIT 34.5 % (42.0-52.0); HEMOGLOBIN 10.2 g/dl (13.5-17.5); LYMPH # 0.9 10^3/uL (1.5-5.0); LYMPH % 22.2 % (24.0-44.0); MEAN CORPUSCULAR HEMOGLOBIN 23.4 pg (27.0-33.0); MEAN CORPUSCULAR HGB CONC 29.6 g/dl (32.0-36.5); MEAN CORPUSCULAR VOLUME 79.3 fl (80.0-96.0); MONO # 0.4 10^3/uL (0.0-0.8); MONO % 8.8 % (2.0-8.0); NEUTROPHILS # 2.6 10^3/uL (1.5-8.5); NEUTROPHILS % 62.7 % (36.0-66.0); PLATELET COUNT, AUTOMATED 227 10^3/uL (150-450); RED BLOOD COUNT 4.35 10^6/uL (4.30-6.10); WHITE BLOOD COUNT 4.2 10^3/uL (4.0-10.0)
[2024-06-09 11:55] LABS: FERRITIN 5.8 NG/ML (10.5-307.3)
== END ==
LOC: M LAB 10:31
PROVIDERS: ATTEND Physician Assistant Medical
DX: D50.9 Iron deficiency anemia, unspecified (principal)

== ENCOUNTER → 2024-06-09 | Outpatient (REF) | payer MEDICARE, MEDICAID | LOC: M LAB REF 11:06 | PROVIDERS: ATTEND Physician Assistant Medical | DX: R71.0 Precipitous drop in hematocrit (principal) ==

== ENCOUNTER → 2024-06-28 | Outpatient (CLI) | payer MEDICARE, MEDICAID | LOC: M PLAIMG 08:25 | PROVIDERS: ATTEND Physician Assistant | DX: I77.810 Thoracic aortic ectasia (principal); I27.20 Pulmonary hypertension, unspecified ==

== ENCOUNTER 2024-07-04 09:51 | Outpatient (CLI) | payer MEDICARE, MEDICAID ==
[~2024-07-04] VITALS: Ht 182.9 cm; Wt 86.3 kg
[~2024-07-04 09:51] MED LIST changes: +ALBUTEROL SULFATE 2.5MG/0.5ML INH NEB SOLN INH PRN; +EPINEPHrine INJ 1 MG/ML 1ML AMP IM PRN; +NS 1,000 ML IV SCH; +diphenhydrAMINE 50MG/ML VIAL IV PRN; +methylPREDNISolone 125MG 2ML VIAL IV PRN
[2024-07-04 10:00] VITALS: BP 123/68; O2SAT 100
[2024-07-04] MEDS: IRON SUCROSE 500 MG in NS 250 ML OVER 4 HRS IV ONE (10:49)
[2024-07-04] MEDS: diphenhydrAMINE 25MG PO PRIOR TO INFUSION PO ONE (10:50)
[2024-07-04] MEDS: ACETAMINOPHEN 650MG PO PRIOR TO INFUSION PO ONE (10:50)
[2024-07-04 12:00] VITALS: BP 126/71; O2SAT 98
[2024-07-04 13:00] VITALS: BP 114/75; O2SAT 97
[2024-07-04 14:00] VITALS: BP 129/64; O2SAT 100
[2024-07-04 14:48] VITALS: BP 112/58; O2SAT 95
== END 2024-07-04 14:49 | disposition home or self-care (01) ==
LOC: M INFU 09:51
PROVIDERS: ATTEND Physician Assistant Medical
DX: D50.9 Iron deficiency anemia, unspecified (principal); Z88.8 Allergy status to other drugs, medicaments and biological substances
CPT/HCPCS: 96365; 96366; J1756

== ENCOUNTER 2024-07-11 09:20 | Outpatient (CLI) | payer MEDICARE, MEDICAID ==
[~2024-07-11] VITALS: Ht 182.9 cm; Wt 85.5 kg
[2024-07-11 09:20] VITALS: BP 118/64; O2SAT 97
[~2024-07-11 09:20] MED LIST changes: -NS 1,000 ML IV SCH
[2024-07-11] MEDS ORDERED: NS 1,000 ML IV SCH (09:30)
[2024-07-11] MEDS ORDERED: diphenhydrAMINE 25MG CAP PO ONE (09:30)
[2024-07-11] MEDS ORDERED: ACETAMINOPHEN 650 MG PO ONE (09:30)
[2024-07-11] MEDS: IRON SUCROSE 500 MG in NS 250 ML OVER 4 HRS IV ONE (09:52)
[2024-07-11 11:00] VITALS: BP 128/90; O2SAT 100
[2024-07-11 13:45] VITALS: BP 122/69; O2SAT 94
== END 2024-07-11 13:45 ==
LOC: M INFU 09:20
PROVIDERS: ATTEND Physician Assistant Medical
DX: D50.9 Iron deficiency anemia, unspecified (principal)
CPT/HCPCS: 96365; 96366; J1756

== ENCOUNTER → 2024-07-25 | Outpatient (CLI) | payer MEDICARE, MEDICAID ==
[~2024-07-25] MED LIST changes: -ALBUTEROL SULFATE 2.5MG/0.5ML INH NEB SOLN INH PRN; -EPINEPHrine INJ 1 MG/ML 1ML AMP IM PRN; -diphenhydrAMINE 50MG/ML VIAL IV PRN; -methylPREDNISolone 125MG 2ML VIAL IV PRN
[2024-07-25 14:35] LABS: BASO % 1.1 % (0.0-1.0); EOS # 0.2 10^3/uL (0.0-0.5); EOS % 5.5 % (0.0-3.0); HEMATOCRIT 40.3 % (42.0-52.0); HEMOGLOBIN 12.4 g/dl (13.5-17.5); LYMPH # 0.8 10^3/uL (1.5-5.0); LYMPH % 22.4 % (24.0-44.0); MEAN CORPUSCULAR HEMOGLOBIN 26.1 pg (27.0-33.0); MEAN CORPUSCULAR HGB CONC 30.8 g/dl (32.0-36.5); MEAN CORPUSCULAR VOLUME 84.7 fl (80.0-96.0); MONO # 0.4 10^3/uL (0.0-0.8); MONO % 11.6 % (2.0-8.0); NEUTROPHILS # 2.1 10^3/uL (1.5-8.5); NEUTROPHILS % 58.8 % (36.0-66.0); PLATELET COUNT, AUTOMATED 205 10^3/uL (150-450); RED BLOOD COUNT 4.76 10^6/uL (4.30-6.10); WHITE BLOOD COUNT 3.6 10^3/uL (4.0-10.0)
[2024-07-25 14:47] LABS: FERRITIN 57.7 NG/ML (10.5-307.3)
== END ==
LOC: M PLALAB 09:59
PROVIDERS: ATTEND Physician Assistant Medical
DX: D50.9 Iron deficiency anemia, unspecified (principal)

== ENCOUNTER → 2024-08-23 | Outpatient (CLI) | payer MEDICARE, MEDICAID ==
[2024-08-23 16:18] LABS: BASO % 0.7 % (0.0-1.0); EOS # 0.2 10^3/uL (0.0-0.5); EOS % 4.3 % (0.0-3.0); HEMOGLOBIN 12.2 g/dl (13.5-17.5); LYMPH # 1.2 10^3/uL (1.5-5.0); LYMPH % 20.9 % (24.0-44.0); MEAN CORPUSCULAR HEMOGLOBIN 25.8 pg (27.0-33.0); MEAN CORPUSCULAR HGB CONC 30.5 g/dl (32.0-36.5); MEAN CORPUSCULAR VOLUME 84.6 fl (80.0-96.0); MONO # 0.6 10^3/uL (0.0-0.8); MONO % 10.2 % (2.0-8.0); NEUTROPHILS # 3.6 10^3/uL (1.5-8.5); NEUTROPHILS % 63.7 % (36.0-66.0); PLATELET COUNT, AUTOMATED 227 10^3/uL (150-450); RED BLOOD COUNT 4.73 10^6/uL (4.30-6.10); WHITE BLOOD COUNT 5.6 10^3/uL (4.0-10.0)
[2024-08-23 16:25] LABS: ERYTHROCYTE SEDIMENTATION RATE 15 mm/hr (0-20)
== END ==
LOC: M PLALAB 13:03
PROVIDERS: ATTEND Neurological Surgery
DX: A49.9 Bacterial infection, unspecified (principal)

== ENCOUNTER → 2024-09-07 | Outpatient (CLI) | payer MEDICARE, MEDICAID ==
[2024-09-07 16:12] LABS: BLOOD UREA NITROGEN 14 MG/DL (9-23); CREATININE FOR GFR 0.61 MG/DL (0.70-1.30); GLOMERULAR FILTRATION RATE > 60.0 (>56)
== END ==
LOC: M PLALAB 13:43
PROVIDERS: ATTEND Neurological Surgery
DX: Z01.812 Encounter for preprocedural laboratory examination (principal)

== ENCOUNTER → 2024-11-09 | Outpatient (CLI) | payer MEDICARE, MEDICAID ==
[~2024-11-09] MED LIST changes: +GLIP-318 PO; -GLIP5TAB20 PO
[2024-11-09 12:58] LABS: BASO % 0.4 % (0.0-1.0); EOS # 0.2 10^3/uL (0.0-0.5); EOS % 4.2 % (0.0-3.0); HEMOGLOBIN 10.4 g/dl (13.5-17.5); LYMPH # 1.1 10^3/uL (1.5-5.0); LYMPH % 25.1 % (24.0-44.0); MEAN CORPUSCULAR HGB CONC 29.7 g/dl (32.0-36.5); MEAN CORPUSCULAR VOLUME 80.8 fl (80.0-96.0); MONO # 0.5 10^3/uL (0.0-0.8); MONO % 10.9 % (2.0-8.0); NEUTROPHILS # 2.7 10^3/uL (1.5-8.5); PLATELET COUNT, AUTOMATED 219 10^3/uL (150-450); RED BLOOD COUNT 4.33 10^6/uL (4.30-6.10); WHITE BLOOD COUNT 4.5 10^3/uL (4.0-10.0)
[2024-11-09 13:10] LABS: ALBUMIN 3.9 G/DL (3.2-5.2); ALKALINE PHOSPHATASE 90 U/L (40-129); ALT/SGPT 40 U/L (7.0-40); AST/SGOT 16 U/L (<34); BILIRUBIN,TOTAL 0.7 MG/DL (0.3-1.2); BLOOD UREA NITROGEN 8 MG/DL (9-23); CALCIUM LEVEL 9.2 MG/DL (8.5-10.1); CARBON DIOXIDE LEVEL 27 MMOL/L (20-31); CHLORIDE LEVEL 107 MMOL/L (98-107); CREATININE FOR GFR 0.59 MG/DL (0.70-1.30); GLOMERULAR FILTRATION RATE > 60.0 (>56); GLUCOSE, FASTING 161 MG/DL (60-100); INR 0.95; PARTIAL THROMBOPLASTIN TIME 27.2 SECONDS (24.8-34.2); POTASSIUM SERUM 4.3 MMOL/L (3.5-5.1); SODIUM LEVEL 140 MMOL/L (136-145); TOTAL PROTEIN 7.2 G/DL (5.7-8.2)
[2024-11-09 13:12] LABS: FERRITIN 7.6 NG/ML (10.5-307.3); FREE T4 1.14 NG/DL (0.89-1.76); THYROID STIMULATING HORMONE 7.903 uIU/ML (0.55-4.78); VITAMIN B12 LEVEL 612 PG/ML (211-911)
== END ==
LOC: M PLALAB 10:30
PROVIDERS: ATTEND Family Medicine
DX: E11.9 Type 2 diabetes mellitus without complications (principal); E03.9 Hypothyroidism, unspecified

== ENCOUNTER → 2024-11-10 | Outpatient (CLI) | payer MEDICARE, MEDICAID | LOC: M LAB 13:32 | PROVIDERS: ATTEND Physician Assistant Medical | DX: D64.9 Anemia, unspecified (principal) ==

== ENCOUNTER 2024-11-13 08:42 | Outpatient (CLI) | payer MEDICARE, MEDICAID ==
[~2024-11-13] VITALS: Ht 182.9 cm; Wt 85.0 kg
[2024-11-13 08:45] VITALS: BP 126/66; O2SAT 96
[2024-11-13 09:16] VITALS: BP 109/51; TEMP 97.1; O2SAT 96
[2024-11-13 10:35] VITALS: BP 115/57; TEMP 97.6; O2SAT 98
[2024-11-13 11:05] VITALS: BP 110/68; TEMP 97.5; O2SAT 96
[2024-11-13 12:25] VITALS: BP 110/65; TEMP 96.2; O2SAT 95
[2024-11-13 12:32] VITALS: BP 110/65; O2SAT 95
== END 2024-11-13 12:25 ==
LOC: M INFU 08:42
PROVIDERS: ATTEND Physician Assistant Medical
DX: D50.9 Iron deficiency anemia, unspecified (principal); Z88.8 Allergy status to other drugs, medicaments and biological substances
CPT/HCPCS: 36430; 86920; P9016

== ENCOUNTER → 2024-11-26 | Outpatient (CLI) | payer MEDICARE, MEDICAID ==
[2024-11-26 11:47] LABS: HEMATOCRIT 36.7 % (42.0-52.0); HEMOGLOBIN 11.5 g/dl (13.5-17.5); MEAN CORPUSCULAR HEMOGLOBIN 25.2 pg (27.0-33.0); MEAN CORPUSCULAR HGB CONC 31.3 g/dl (32.0-36.5); MEAN CORPUSCULAR VOLUME 80.3 fl (80.0-96.0); PLATELET COUNT, AUTOMATED 174 10^3/uL (150-450); RED BLOOD COUNT 4.57 10^6/uL (4.30-6.10); WHITE BLOOD COUNT 4.3 10^3/uL (4.0-10.0)
[2024-11-26 11:59] LABS: ANISOCYTOSIS 2+; ATYPICAL LYMPH 4 % (0-5); LYMPHOCYTES 32 % (16-44); MONOCYTES 11 % (0-5); NEUTROPHILS 53 % (28-66); PLATELET ESTIMATE NORMAL (NORMAL); POIKILOCYTOSIS 1+
== END ==
LOC: M LAB 11:03
PROVIDERS: ATTEND Physician Assistant Medical
DX: D50.9 Iron deficiency anemia, unspecified (principal)

== ENCOUNTER → 2024-11-27 | Outpatient (CLI) | payer MEDICARE, MEDICAID ==
[2024-11-27 10:46] LABS: HEMATOCRIT 36.7 % (42.0-52.0); HEMOGLOBIN 11.7 g/dl (13.5-17.5); MEAN CORPUSCULAR HEMOGLOBIN 25.3 pg (27.0-33.0); MEAN CORPUSCULAR HGB CONC 31.9 g/dl (32.0-36.5); MEAN CORPUSCULAR VOLUME 79.4 fl (80.0-96.0); PLATELET COUNT, AUTOMATED 178 10^3/uL (150-450); RED BLOOD COUNT 4.62 10^6/uL (4.30-6.10); WHITE BLOOD COUNT 4.4 10^3/uL (4.0-10.0)
[2024-11-27 11:15] LABS: ALBUMIN 3.7 G/DL (3.2-5.2); ALKALINE PHOSPHATASE 100 U/L (40-129); ALT/SGPT 48 U/L (7.0-40); AST/SGOT 21 U/L (<34); BILIRUBIN,TOTAL 0.9 MG/DL (0.3-1.2); BLOOD UREA NITROGEN 12 MG/DL (9-23); C REACTIVE PROTEIN QUANTITATIV < 0.50 MG/DL (<1.0); CALCIUM LEVEL 8.6 MG/DL (8.5-10.1); CARBON DIOXIDE LEVEL 26 MMOL/L (20-31); CHLORIDE LEVEL 107 MMOL/L (98-107); CREATININE FOR GFR 0.66 MG/DL (0.70-1.30); GLOMERULAR FILTRATION RATE > 90.0 (>56); GLUCOSE, FASTING 156 MG/DL (60-100); POTASSIUM SERUM 4.1 MMOL/L (3.5-5.1); SODIUM LEVEL 142 MMOL/L (136-145)
[2024-11-27 11:38] LABS: ATYPICAL LYMPH 11 % (0-5); BASOPHILS 1 % (0-1); EOSINOPHILS 4 % (0-3); LYMPHOCYTES 15 % (16-44); MONOCYTES 10 % (0-5); MYELOCYTES 1 % (0-0); NEUTROPHILS 52 % (28-66)
[2024-11-27 11:39] LABS: PLATELET ESTIMATE NORMAL (NORMAL)
[2024-11-27 11:57] LABS: ERYTHROCYTE SEDIMENTATION RATE 17 mm/hr (0-20)
== END ==
LOC: M LAB 09:57
PROVIDERS: ATTEND Physician Assistant Medical
DX: T81.49XA Infection following a procedure, other surgical site, initial encounter (principal)

== ENCOUNTER → 2024-12-11 | Outpatient (CLI) | payer MEDICARE, MEDICAID ==
[2024-12-11 15:45] LABS: BASO % 0.6 % (0.0-1.0); EOS # 0.2 10^3/uL (0.0-0.5); EOS % 3.5 % (0.0-3.0); HEMATOCRIT 38.4 % (42.0-52.0); HEMOGLOBIN 11.8 g/dl (13.5-17.5); LYMPH # 1.2 10^3/uL (1.5-5.0); LYMPH % 23.8 % (24.0-44.0); MEAN CORPUSCULAR HEMOGLOBIN 24.9 pg (27.0-33.0); MEAN CORPUSCULAR HGB CONC 30.7 g/dl (32.0-36.5); MONO # 0.5 10^3/uL (0.0-0.8); MONO % 10.5 % (2.0-8.0); NEUTROPHILS % 61.4 % (36.0-66.0); PLATELET COUNT, AUTOMATED 223 10^3/uL (150-450); RED BLOOD COUNT 4.74 10^6/uL (4.30-6.10); WHITE BLOOD COUNT 4.8 10^3/uL (4.0-10.0)
[2024-12-11 16:01] LABS: ERYTHROCYTE SEDIMENTATION RATE 24 mm/hr (0-20)
== END ==
LOC: M PLALAB 12:23
PROVIDERS: ATTEND Physician Assistant Medical
DX: T81.49XA Infection following a procedure, other surgical site, initial encounter (principal); Y84.8 Other medical procedures as the cause of abnormal reaction of the patient, or of later complication, without mention of misadventure at the time of the procedure

== ENCOUNTER → 2024-12-27 | Outpatient (CLI) | payer MEDICARE, MEDICAID ==
[2024-12-27 13:32] LABS: FREE T4 1.29 NG/DL (0.89-1.76); THYROID STIMULATING HORMONE 2.662 uIU/ML (0.55-4.78)
== END ==
LOC: M WUC 09:24
PROVIDERS: ATTEND Physician Assistant Medical
DX: E03.9 Hypothyroidism, unspecified (principal)

== ENCOUNTER → 2024-12-28 | Outpatient (CLI) | payer MEDICARE, MEDICAID ==
[2024-12-28 15:27] LABS: HEMOGLOBIN A1c 6.9 % (4.0-6.0)
== END ==
LOC: M PLALAB 11:22
PROVIDERS: ATTEND Physician Assistant Medical
DX: E11.65 Type 2 diabetes mellitus with hyperglycemia (principal)

== ENCOUNTER → 2025-02-19 | Outpatient (CLI) | payer MEDICARE, MEDICAID ==
[2025-02-19 14:49] LABS: BASO # 0.0 10^3/uL (0.0-0.2); BASO % 0.4 % (0.0-1.0); EOS # 0.2 10^3/uL (0.0-0.5); EOS % 4.0 % (0.0-3.0); LYMPH # 0.9 10^3/uL (1.5-5.0); LYMPH % 19.2 % (24.0-44.0); MONO # 0.5 10^3/uL (0.0-0.8); MONO % 10.2 % (2.0-8.0); NEUTROPHILS # 3.0 10^3/uL (1.5-8.5); NEUTROPHILS % 65.8 % (36.0-66.0); PLATELET COUNT, AUTOMATED 222 10^3/uL (150-450)
[2025-02-19 14:52] LABS: IRON (FE) 40.0 UG/DL (65-175)
== END ==
LOC: M PLALAB 10:50
PROVIDERS: ATTEND Physician Assistant Medical
DX: D50.9 Iron deficiency anemia, unspecified (principal); R53.83 Other fatigue

== ENCOUNTER 2025-02-21 11:19 | Outpatient (CLI) | payer MEDICARE, MEDICAID ==
[~2025-02-21] VITALS: Ht 182.9 cm; Wt 84.0 kg
[~2025-02-21 11:19] MED LIST changes: +ALBUTEROL SULFATE 2.5 MG/0.5 ML INH CONCENTRATE NEB SOLN INH PRN; +EPINEPHrine INJ 1 MG/ML 1ML AMP IM PRN; +diphenhydrAMINE 50 MG/ML VIAL IV PRN
[2025-02-21 11:35] VITALS: BP 110/57; O2SAT 96
[2025-02-21] MEDS: IRON SUCROSE 300 MG in NS 250 ML OVER 90 MIN. IV ONE (12:06)
[2025-02-21 13:45] VITALS: BP 111/64; O2SAT 98
== END 2025-02-21 13:45 ==
LOC: M INFU 11:19
PROVIDERS: ATTEND Physician Assistant Medical
DX: D50.9 Iron deficiency anemia, unspecified (principal)
CPT/HCPCS: 96365; J1756

== ENCOUNTER 2025-02-28 10:10 | Outpatient (CLI) | payer MEDICARE, MEDICAID ==
[~2025-02-28] VITALS: Ht 182.9 cm; Wt 83.6 kg
[2025-02-28 10:30] VITALS: BP 109/58; O2SAT 98
[2025-02-28] MEDS: IRON SUCROSE 300 MG in NS 250 ML IV ONE (11:20)
[2025-02-28 12:55] VITALS: BP 127/75; O2SAT 96
== END 2025-02-28 11:50 ==
LOC: M INFU 10:10
PROVIDERS: ATTEND Physician Assistant Medical
DX: D50.9 Iron deficiency anemia, unspecified (principal)
CPT/HCPCS: 96365; 96366; J1756

== ENCOUNTER → 2025-03-02 | Outpatient (CLI) | payer MEDICARE, MEDICAID ==
[~2025-03-02] MED LIST changes: -ALBUTEROL SULFATE 2.5 MG/0.5 ML INH CONCENTRATE NEB SOLN INH PRN; -EPINEPHrine INJ 1 MG/ML 1ML AMP IM PRN; -diphenhydrAMINE 50 MG/ML VIAL IV PRN
== END ==
LOC: M RAD 07:17
PROVIDERS: ATTEND Nurse Practitioner Adult Health
DX: J98.11 Atelectasis (principal); J43.9 Emphysema, unspecified; R91.8 Other nonspecific abnormal finding of lung field; J84.10 Pulmonary fibrosis, unspecified

== ENCOUNTER → 2025-03-13 | Outpatient (CLI) | payer MEDICARE, MEDICAID ==
[2025-03-13 14:04] LABS: BASO # 0.0 10^3/uL (0.0-0.2); BASO % 1.2 % (0.0-1.0); EOS # 0.2 10^3/uL (0.0-0.5); EOS % 4.7 % (0.0-3.0); LYMPH # 0.8 10^3/uL (1.5-5.0); LYMPH % 24.4 % (24.0-44.0); MONO # 0.4 10^3/uL (0.0-0.8); MONO % 12.2 % (2.0-8.0); NEUTROPHILS # 2.0 10^3/uL (1.5-8.5); NEUTROPHILS % 57.2 % (36.0-66.0); PLATELET COUNT, AUTOMATED 203 10^3/uL (150-450)
[2025-03-13 14:16] LABS: IRON (FE) 35.0 UG/DL (65-175)
== END ==
LOC: M PLALAB 10:14
PROVIDERS: ATTEND Physician Assistant Medical
DX: D50.9 Iron deficiency anemia, unspecified (principal)

== ENCOUNTER → 2025-03-17 | Outpatient (CLI) | payer MEDICARE, MEDICAID | LOC: M RAD 14:29 | PROVIDERS: ATTEND Physician Assistant | DX: M25.572 Pain in left ankle and joints of left foot (principal) ==

== ENCOUNTER 2025-05-10 12:36 | Outpatient (CLI) | payer MEDICARE, MEDICAID ==
[~2025-05-10] VITALS: Ht 182.9 cm; Wt 84.0 kg
[~2025-05-10 12:36] MED LIST changes: +ALBUTEROL SULFATE 2.5 MG/0.5 ML INH CONCENTRATE NEB SOLN INH PRN; +EPINEPHrine INJ 1 MG/ML 1ML AMP IM PRN; -EZET10TA21 PO; +EZET10TA57 PO; +diphenhydrAMINE 50 MG/ML VIAL IV PRN
[2025-05-10 13:00] VITALS: BP 115/87; O2SAT 96
[2025-05-10] MEDS: IRON SUCROSE 300 MG in NS 250 ML IV ONE (13:32)
== END 2025-05-10 15:10 ==
LOC: M INFU 12:36
PROVIDERS: ATTEND Physician Assistant Medical
DX: D50.9 Iron deficiency anemia, unspecified (principal)
CPT/HCPCS: 96365; J1756

== ENCOUNTER → 2025-05-17 | Outpatient (CLI) | payer MEDICARE, MEDICAID ==
[~2025-05-17] MED LIST changes: +diphenhydrAMINE 25MG PO PRIOR TO INFUSION PO ONE
[2025-05-17] MEDS: IRON SUCROSE 300 MG in NS 250 ML OVER 90 MIN. IV ONE (12:49)
[2025-05-17 12:59] VITALS: BP 114/67; O2SAT 100
[2025-05-17 14:25] VITALS: BP 107/68; O2SAT 98
== END ==
LOC: M INFU 12:29
PROVIDERS: ATTEND Physician Assistant Medical
DX: D50.9 Iron deficiency anemia, unspecified (principal); Z88.5 Allergy status to narcotic agent; Z88.8 Allergy status to other drugs, medicaments and biological substances
CPT/HCPCS: 96365; 96366; 99195; J1756

== ENCOUNTER → 2025-05-25 | Outpatient (CLI) | payer MEDICARE, MEDICAID ==
[~2025-05-25] MED LIST changes: -ALBUTEROL SULFATE 2.5 MG/0.5 ML INH CONCENTRATE NEB SOLN INH PRN; -EPINEPHrine INJ 1 MG/ML 1ML AMP IM PRN; -diphenhydrAMINE 25MG PO PRIOR TO INFUSION PO ONE; -diphenhydrAMINE 50 MG/ML VIAL IV PRN
[2025-05-25 14:14] LABS: ESTIMATED AVERAGE GLUCOSE 111.0 MG/DL (60-110)
== END ==
LOC: M PLALAB 11:03
PROVIDERS: ATTEND Physician Assistant Medical
DX: E11.9 Type 2 diabetes mellitus without complications (principal)

== ENCOUNTER 2025-06-26 18:05 | Emergency (ER) | payer MEDICARE, MEDICAID ==
[~2025-06-26] VITALS: Ht 182.9 cm; Wt 81.4 kg
[2025-06-26 19:04] LABS: BASO # 0.0 10^3/uL (0.0-0.2); BASO % 0.6 % (0.0-1.0); EOS # 0.1 10^3/uL (0.0-0.5); EOS % 3.7 % (0.0-3.0); LYMPH # 0.7 10^3/uL (1.5-5.0); LYMPH % 19.1 % (24.0-44.0); MONO # 0.3 10^3/uL (0.0-0.8); MONO % 7.4 % (2.0-8.0); NEUTROPHILS # 2.4 10^3/uL (1.5-8.5); NEUTROPHILS % 68.9 % (36.0-66.0); PLATELET COUNT, AUTOMATED 252 10^3/uL (150-450)
[2025-06-26 19:05] LABS: CK-MB VALUE MASS 1.8 NG/ML (<3.6)
[2025-06-26 19:07] LABS: ALT/SGPT 22 U/L (7.0-40); AST/SGOT 13 U/L (<34); CPK CREATINE PHOSPHOKINASE 60 U/L (46-171); MB/CK RELATIVE INDEX 3.00 (< OR =4)
[2025-06-26 19:26] LABS: INR 1.06
[2025-06-26 19:39] VITALS: BP 115/56; TEMP 97.5; O2SAT 100
[2025-06-26 19:59] VITALS: BP 111/52; TEMP 97.5; O2SAT 100
[2025-06-26 20:45] VITALS: BP 105/53; TEMP 98.5; O2SAT 100
[2025-06-26] MEDS: PANTOPRAZOLE 40MG VIAL IV ONE (20:53)
[2025-06-26 21:42] VITALS: BP 106/58; TEMP 98.5; O2SAT 100
[2025-06-26 22:45] VITALS: BP 108/56; TEMP 98.3; O2SAT 99
== END 2025-06-26 22:53 | disposition short-term general hospital (02) ==
LOC: M ED 18:05
DX: K92.2 Gastrointestinal hemorrhage, unspecified (principal); D64.9 Anemia, unspecified; I25.10 Atherosclerotic heart disease of native coronary artery without angina pectoris; I10 Essential (primary) hypertension; E78.5 Hyperlipidemia, unspecified; J45.909 Unspecified asthma, uncomplicated; J44.1 Chronic obstructive pulmonary disease with (acute) exacerbation; K21.9 Gastro-esophageal reflux disease without esophagitis; F41.9 Anxiety disorder, unspecified; F32.9 Major depressive disorder, single episode, unspecified; Z95.5 Presence of coronary angioplasty implant and graft; Z79.82 Long term (current) use of aspirin; Z79.899 Other long term (current) drug therapy
CPT/HCPCS: 36415; 36430; 71045; 71046; 80047; 80053; 80076; 82550; 82553; 82728; 83550; 83690; 84484; 85025; 85610; 86850; 86900; 86901; 86920; 93005; 93041; 94760; 96374; 99285; G0463; J2470; P9016

== ENCOUNTER → 2025-06-26 | Outpatient (CLI) | payer MEDICARE, MEDICAID ==
[2025-06-26 16:56] LABS: BASO # 0.0 10^3/uL (0.0-0.2); BASO % 0.5 % (0.0-1.0); EOS # 0.1 10^3/uL (0.0-0.5); EOS % 3.5 % (0.0-3.0); LYMPH # 0.8 10^3/uL (1.5-5.0); LYMPH % 20.8 % (24.0-44.0); MONO # 0.3 10^3/uL (0.0-0.8); MONO % 8.4 % (2.0-8.0); NEUTROPHILS # 2.7 10^3/uL (1.5-8.5); NEUTROPHILS % 66.6 % (36.0-66.0); PLATELET COUNT, AUTOMATED 273 10^3/uL (150-450)
[2025-06-26 17:51] LABS: ALT/SGPT 23 U/L (7.0-40); AST/SGOT 12 U/L (<34); CALCIUM LEVEL 8.6 MG/DL (8.3-10.6); CARBON DIOXIDE LEVEL 21 MMOL/L (20-31); CHLORIDE LEVEL 104 MMOL/L (98-107); CREATININE FOR GFR 0.56 MG/DL (0.70-1.30); GLOMERULAR FILTRATION RATE > 90.0 (>49); IRON (FE) 17 UG/DL (65-175); PERCENT SATURATION 3.6 % (19.7-50.0); POTASSIUM SERUM 4.0 MMOL/L (3.5-5.1); SODIUM LEVEL 136 MMOL/L (136-145)
== END ==
LOC: M RAD 16:09
PROVIDERS: ATTEND Student in an Organized Health Care Education/Training Program
DX: R06.09 Other forms of dyspnea (principal); R23.1 Pallor; R17 Unspecified jaundice; F17.210 Nicotine dependence, cigarettes, uncomplicated; Z79.891 Long term (current) use of opiate analgesic; Z79.82 Long term (current) use of aspirin; Z79.84 Long term (current) use of oral hypoglycemic drugs; Z79.899 Other long term (current) drug therapy; Z88.5 Allergy status to narcotic agent; Z88.8 Allergy status to other drugs, medicaments and biological substances; Z83.3 Family history of diabetes mellitus; Z83.6 Family history of other diseases of the respiratory system; Z82.3 Family history of stroke

== ENCOUNTER → 2025-07-05 | Outpatient (CLI) | payer MEDICARE, MEDICAID ==
[~2025-07-05] MED LIST changes: +ISOVUE-370 76% 100 ML VIAL ONE
== END ==
LOC: M PLAIMG 09:35
PROVIDERS: ATTEND Nurse Practitioner Family
DX: D50.9 Iron deficiency anemia, unspecified (principal)
CPT/HCPCS: 74174; Q9967

== ENCOUNTER → 2025-07-10 | Outpatient (CLI) | payer MEDICARE, MEDICAID ==
[~2025-07-10] MED LIST changes: -ISOVUE-370 76% 100 ML VIAL ONE
== END ==
LOC: M RAD 13:38
PROVIDERS: ATTEND Nurse Practitioner Family
DX: D50.9 Iron deficiency anemia, unspecified (principal)

== ENCOUNTER 2025-07-26 09:29 | Day surgery (SDC) | payer MEDICARE, MEDICAID ==
[~2025-07-26] VITALS: Ht 182.9 cm; Wt 80.1 kg
[~2025-07-26 09:29] MED LIST changes: +ASCO500C3 PO; +TIZA10TA PO
[2025-07-26] MEDS ORDERED: GLYCOPYRROLATE INJ 0.2 MG/ML 2 ML VIAL As Ordered ONE (12:56)
[2025-07-26 13:14] VITALS: TEMP 97.1
[2025-07-26 14:00] VITALS: BP 123/67; O2SAT 96
== END 2025-07-26 14:10 | disposition home or self-care (01) ==
LOC: M OPP 09:29
PROVIDERS: ATTEND Internal Medicine Gastroenterology
DX: K31.89 Other diseases of stomach and duodenum (principal); D62 Acute posthemorrhagic anemia; Z95.5 Presence of coronary angioplasty implant and graft; G47.30 Sleep apnea, unspecified; Z79.84 Long term (current) use of oral hypoglycemic drugs; Z79.51 Long term (current) use of inhaled steroids; Z79.899 Other long term (current) drug therapy; J45.909 Unspecified asthma, uncomplicated
CPT/HCPCS: 44361; 88305; J1596; J3010

== ENCOUNTER → 2025-07-27 | Outpatient (CLI) | payer MEDICARE, MEDICAID ==
[2025-07-27 15:56] LABS: FREE T4 1.26 NG/DL (0.89-1.76)
== END ==
LOC: M PLALAB 12:18
PROVIDERS: ATTEND Physician Assistant Medical
DX: Z00.00 Encounter for general adult medical examination without abnormal findings (principal); E03.9 Hypothyroidism, unspecified

== ENCOUNTER → 2025-07-27 | Outpatient (CLI) | payer MEDICARE, MEDICAID | LOC: M PLAIMG 12:21 | PROVIDERS: ATTEND Physician Assistant Medical | DX: Z00.00 Encounter for general adult medical examination without abnormal findings (principal); E03.9 Hypothyroidism, unspecified; D50.9 Iron deficiency anemia, unspecified ==

== ENCOUNTER → 2025-08-06 | Outpatient (CLI) | payer MEDICARE, MEDICAID ==
[~2025-08-06] MED LIST changes: +PROHANCE 279.3MG/ML 15ML VIAL ONE; +PROHANCE 279.3MG/ML 5ML VIAL ONE
== END ==
LOC: M PLAIMG 12:26
PROVIDERS: ATTEND Student in an Organized Health Care Education/Training Program
DX: H93.A1 Pulsatile tinnitus, right ear (principal)
CPT/HCPCS: 70549; A9579